=== PATIENT | male | born 1950 | race Caucasian/White ===

== ENCOUNTER 2021-03-14 14:12 | Outpatient (CLI) | payer MEDICARE, OTHER, SELFPAY ==
--- NOTE | 2021-03-14 14:46 | ECHO_ITS ---
Patient Info Name: Rolando Moser Age: 70 years : 1950 Gender: Male Ht: 70 in Wt: 320 lbs BSA: 2.75 m2 HR: 93 bpm BP: 160 / 81 mmHg Heart Rhythm: Sinus Rhythm Exam Date: 03/14/2021 2:56 PM Exam Location: [facility] Patient Status: Outpatient Admit Date: 03/14/2021 Staff Ordering Physician: Shad Montejo NP City Jailer: Barbara Goodman RDCS Attending Provider: Shad Montejo NP Referring Physician: Gustabo MEEK; Exam Type: CA echo doppler color flow Study Info Indications R60.0 - Localized edema Complete two-dimensional, color flow and Doppler transthoracic echocardiogram is performed. Summary 1. Complete two-dimensional, color flow and Doppler transthoracic echocardiogram is performed. 2. Left ventricular chamber dimension is normal. 3. Left ventricular systolic function is normal, estimated at 65-70%. 4. There is mildly increased left ventricular wall thickness. 5. The left ventricular diastolic function is grade I diastolic dysfunction. 6. E/e' 19 is elevated. 7. There is moderate aortic valve sclerosis. 8. The mitral valve has moderately calcified annulus. Left Ventricle E/e' 19 is elevated. Left ventricular chamber dimension is normal. Left ventricular systolic function is normal, estimated at 65-70%. There is mildly increased left ventricular wall thickness. The left ventricular diastolic function is grade I diastolic dysfunction. Right Ventricle Right ventricular systolic function is normal and with normal TAPSE 2.5 cm. Right ventricular chamber dimension is normal. Left Atria Left atrial chamber dimension is normal. Right Atria Right atrial chamber dimension is normal. Aortic Valve The aortic valve is trileaflet. There is moderate aortic valve sclerosis. There is no aortic valve stenosis. There is no aortic valve regurgitation. Pulmonic Valve There is no pulmonic regurgitation. Mitral Valve The mitral valve has moderately calcified annulus. There is no mitral valve stenosis. There is no mitral valve regurgitation. Tricuspid Valve There is no tricuspid valve regurgitation. Pericardium/Pleural There is no pericardial effusion. Inferior Vena Cava Normal inferior vena cava with >50% collapse upon inspiration consistent with normal right atrial pressure, 5 mmHg. Aorta The aortic root size at the sinus of Valsalva is normal. Left Ventricular Outflow Tract Name Value Normal LVOT 2D LVOT Diameter 2.0 cm LVOT Doppler LVOT Peak Gradient 5 mmHg LVOT Mean Gradient 3 mmHg LVOT VTI 24 cm LVOT VTI/AV VTI Ratio 0.8 LVOT Stroke Volume 73 ml LVOT CO 6.8 l/min LVOT CI 2.5 l/min/m2 Pulmonic Valve Name Value Normal RVOT Doppler
== END 2021-03-14 14:13 | disposition home or self-care (01) ==
LOC: ANHCARD 14:14
PROVIDERS: PCP Family Medicine; Visit Provider Nurse Practitioner Family
DX: R60.0 Localized edema (principal); I70.0 Atherosclerosis of aorta
CPT/HCPCS: 93306

== ENCOUNTER 2021-10-02 13:03 | Inpatient (IN) | payer MEDICARE, OTHER, SELFPAY ==
[2021-10-02] VITALS (13 sets, daily range): BP systolic 103–129; BP diastolic 46–91; PULSE 79–92; RESP 12–33; TEMP 35.9–36.8; O2SAT 90–99; BMI 33.2
--- NOTE | ~2021-10-02 | CT_ITS ---
EXAMINATION: CT brain wo con DATE: 10/03/2021 09:36 INDICATION: Multiple falls. Weakness. TECHNIQUE: Computed tomography (CT) of the head was performed without intravenous contrast. Sagittal and coronal reconstructions were performed. The mA was adjusted according to patient size. Iterative reconstruction technique was employed. The dose-length product was 681.00 mGy-cm. COMPARISON: None FINDINGS: No acute calvarial fracture. Old craniotomy versus fracture near the midline of the right frontal bon e extending into the anterior wall of the right frontal sinus. Old right frontal chance hole. Likely se quela of chronic infarcts with large region of encephalomalacia involving large portions of the left parietal, temporal and occipital lobes. [id number]-hl-[id number] region of encephalomalacia in the right fro ntal lobe and small region in the left frontal lobe. No acute intracranial hemorrhage, acute infarcti on or abnormal extra axial fluid collection. Ventricles are normal and symmetric. No mass/mass effect . Posterior layering fluid and prominent mucosal thickening in the left maxillary sinus which demonst rates thickened sclerotic guallpa consistent with acute on chronic sinusitis. Additional mild mucosal t hickening the bilateral ethmoid sinuses. The orbits and mastoid air cells are normal. Intracranial ca lcified cerebral atherosclerosis is noted. IMPRESSION: 1. No acute fracture or acute intracranial process. 2. Large region of encephalomalacia involving portions of the right parietal, temporal and occipital lobes with smaller regions in the lateral frontal lobes likely related to old infarcts. 3. Acute on chronic left maxillary sinusitis. Reviewed, dictated and finalized at location B. IMPRESSION: 1. No acute fracture or acute intracranial process. 2. Large region of encephalomalacia involving portions of the right parietal, t emporal and occipital lobes with smaller regions in the lateral frontal lobes l ikely related to old infarcts. 3. Acute on chronic left maxillary sinusitis.
--- NOTE | ~2021-10-02 | XR_ITS ---
EXAMINATION: XR chest 1V portable EXAM DATE: 10/02/2021 13:33 INDICATION: CHF, LE edema. TECHNIQUE: Portable AP frontal chest x-ray was obtained. Comparison is made to prior examination from 06/22/2018. FINDINGS: Interval development of some scattered lung opacities, left upper lung zone and bilateral l ower lung zones. Could be added pneumonia or edema. Please clinically correlate. Mild cardiomegaly is unchanged. Lungs are hyperinflated also unchanged. No pneumothorax. There are mild bony degenerative changes. IMPRESSION: Development of patchy basilar predominant multifocal airspace disease, pneumonia or edema . Consider one-month follow-up to exclude any underlying cancer. Reviewed, dictated and finalized at location A. IMPRESSION: Development of patchy basilar predominant multifocal airspace disea se, pneumonia or edema. Consider one-month follow-up to exclude any underlying cancer.
--- NOTE | ~2021-10-02 | US_ITS ---
EXAMINATION: US renal BI DATE: 10/03/2021 10:41 INDICATION: Acute kidney injury. TECHNIQUE: Multiple ultrasound grayscale images of the kidneys were obtained. COMPARISON: CT lumbar spine 10/03/2021, CT abdomen and pelvis 06/22/2018. FINDINGS: The right kidney measures 10.5 x 5.6 x 5.9 cm. The left kidney measures 10.5 x 4.5 x 5.4 cm. The kidn eys demonstrate normal parenchymal echogenicity. There is cortical thinning of the kidneys. There are cysts in the kidneys measuring up to 1.8 cm on the right. There is no hydronephrosis. The bladder is normal. IMPRESSION: 1. Cortical thinning of the kidneys. No hydronephrosis. Reviewed, dictated and finalized at location A.
--- NOTE | ~2021-10-02 | US_ITS ---
EXAMINATION:US venous doppler LE BI INDICATION:Leg edema TECHNIQUE: Multiple grayscale, color flow and Doppler images of the right and left lower extremity de ep venous systems were obtained and reviewed. COMPARISON:No prior studies for comparison. FINDINGS: The common femoral, superficial femoral and popliteal veins demonstrate normal respiratory variation, augmentation and compressibility. Color flow is also seen within the posterior tibial, pe roneal, greater saphenous and profunda veins. IMPRESSION: 1: No lower extremity deep venous thrombosis. Reviewed, dictated and finalized at location A.
--- NOTE | ~2021-10-02 | CT_ITS ---
EXAMINATION: CT lumbar spine wo [facility] EXAM DATE: 10/03/2021 09:36 INDICATION: acute/chronic back pain, weakness, falls . TECHNIQUE: Spiral CT of the lumbar spine was performed without contrast. Axial, coronal and sagittal images lumbar spine were reviewed. The dose-length product (DLP) for this examination was 1267.28 m Gy-cm. The exposure was tailored according to patient size (auto mA exposure control), and iterativ e reconstruction (ASIR) was used as additional dose reduction technique. There is no prior study for comparison. FINDINGS: There are no acute fractures identified. Intact sacroiliac joints. There is moderate L5-S1 disc disease, otherwise mild to moderate lumbar disc disease. Mild diffuse loss of thoracolumbar vert ebral body heights. The vertebral bodies are aligned in the AP dimension. Paraspinal evaluation demonstrates a 3.6 cm right adrenal gland adenoma and an indeterminate partiall y exophytic mass at the mid pole of the right kidney measuring 12 mm. There is additional smaller rig ht renal lesion most likely a hemorrhagic cyst. Extensive abdominal aortic arteriosclerosis. Level by level evaluation: T12-L1: Disc does not extend beyond the endplate margin. Facet arthropathy: None. Neural foraminal stenosis: No stenosis. Central canal stenosis: No stenosis. L1-L2: There is a mild diffuse disc bulge. Facet arthropathy: Mild. Neural foraminal stenosis: Mild left. Central canal stenosis: Mild. L2-L3: There is a mild to moderate diffuse disc bulge. Facet arthropathy: Moderate. Neural foraminal stenosis: Mild to moderate bilateral. Central canal stenosis: Mild to moderate. L3-L4: There is a mild to moderate diffuse disc bulge. Facet arthropathy: Mild to moderate. Neural foraminal stenosis: Mild bilateral. Central canal stenosis: Mild to moderate. L4-L5: There is a moderate diffuse disc bulge. Facet arthropathy: Severe. Neural foraminal stenosis: Moderate right, mild to moderate left. Central canal stenosis: Moderate to severe. L5-S1: There is a mild to moderate diffuse disc bulge. Facet arthropathy: Moderate. Neural foraminal stenosis: Moderate bilateral. Central canal stenosis: Mild. IMPRESSION: 1. Moderate to severe L4-5 Central canal stenosis. 2. Indeterminate right renal mass, renal cell cancer versus hemorrhagic cyst. Pre and postcontrast M RI abdomen or CT recommended. 3. Adrenal adenoma. 4. No acute findings. Reviewed, dictated and finalized at location A. IMPRESSION: 1. Moderate to severe L4-5 Central canal stenosis. 2. Indeterminate right renal mass, renal cell cancer versus hemorrhagic cyst. Pre and postcontrast MRI abdomen or CT recommended. 3. Adrenal adenoma. 4. No acute findings.
--- NOTE | 2021-10-02 13:17 | ECG_ITS ---
Measurements Intervals [place] Rate: 79 P: 5 FL: 168 QRS: -19 QRSD: 152 T: 34 QT: 423 QTc: 487 Interpretive Statements SINUS RHYTHM RIGHT BUNDLE BRANCH BLOCK [120+ ms QRS DURATION, UPRIGHT V1, 40+ ms S IN I/aVL/V4/V5/V6] NO PREVIOUS ECG AVAILABLE FOR COMPARISON Electronically Signed On 10-02-2021 14:27:28 CDT by Hoda Sullivan M.D.
[2021-10-02 13:49] LABS: Basophils Absolute Auto 0.1 K/mm3 (0.0-0.1); Basophils Percent Auto 0.6 % (0.2-1.2); Eosinophils Absolute Auto 0.2 K/mm3 (0-0.3); Eosinophils Percent Auto 1.7 % (0-4.4); Hematocrit 43.8 % (42.0-52.0); Hemoglobin 14.8 g/dL (14.0-18.0); Immature Granulocyte Absolute 0.13 K/mm3 (0.00-0.031); Immature Granulocyte Percent A 1.1 % (0-0.5); Lymphocytes Absolute Auto 1.81 K/mm3 (0.9-3.2); Lymphocytes Percent Auto 14.6 % (18.3-44.2); Mean Corpuscular HGB Conc 33.8 g/dl (32-36); Mean Corpuscular Hemoglobin 30.9 pg (26-34); Mean Corpuscular Volume 91.4 fl (80-100); Mean Platelet Volume 8.9 fl (7.4-10.4); Monocytes Absolute Auto 0.7 K/mm3 (0.1-0.6); Monocytes Percent Auto 5.7 % (2.6-8.5); Neutrophils Absolute Auto 9.4 K/mm3 (1.3-6.7); Neutrophils Percent Auto 76.3 % (45.5-73.1); Platelet Count Result 264 k/mm3 (150-375); Red Blood Count 4.79 M/mm3 (4.6-6.20); Red Cell Distribution Width 15.4 % (11.5-14.5); White Blood Count 12.4 K/mm3 (4.5-10.0)
[2021-10-02 13:59] LABS: INR 1.1; Prothrombin Time 13.6 Seconds (11.1-14.7)
[2021-10-02 14:08] LABS: Alanine Aminotransferase 37 U/L (4-50); Albumin Level 4.2 g/dL (3.5-5.1); Alkaline Phosphatase 102 U/L (38-126); Anion Gap 7 mmol/L (8-16); Aspartate Amino Transferase 31 U/L (17-59); Bilirubin,Total 0.9 mg/dL (0.2-1.3); Blood Urea Nitrogen 22 mg/dL (9-20); Calcium 9.3 mg/dL (8.4-10.2); Carbon Dioxide 34 mmol/L (22-30); Chloride 97 mmol/L (98-107); Estimated CRCL calculation 48 ml/min; Estimated Glomerular Filt Rate 46; Glucose 121 mg/dL (65-110); Potassium 4.2 mmol/L (3.4-5.0); Sodium 138 mmol/L (137-145)
[2021-10-02 14:20] LABS: NT Pro B Type Natriuretic Pept 525 pg/mL (5-100); Troponin I < 0.012 ng/mL (0.000-0.034)
--- NOTE | 2021-10-02 15:00 | ED.WEAKNESS ---
HPI - Weakness General Chief complaint: Weakness Stated complaint: weakness Time Seen by Provider: 10/02/21 13:16 Source: patient and family Mode of arrival: EMS Limitations: no limitations History of Present Illness HPI Narrative: 71-year-old with a history of hypertension, hyperlipidemia, CKD here with complaints of marked weakness for past few months however this morning he was unable to walk. He states that his knees buckled up he states he has no strength in his lower extremities.. states that he had an appointment this afternoon with Dr. Castro was unable to make it. He denies any chest pain, shortness of breath. No history of fever or chills. He denies any shortness of breath or cough. No history of nausea or vomiting. MD Complaint: generalized weakness Onset (ago): month(s) Duration: constant Location: generalized Migration: none Severity: moderate Relieving factors: none Exacerbating factors: none Context: new medication Associated symptoms: denies other symptoms Related Data Home Medications Medication Instructions Recorded Confirmed diltiazem HCl [DILT-XR] PO 10/02/21 rosuvastatin mg 10/02/21 Allergies Allergy/AdvReac Type Severity Reaction Status Date / Time No Known Allergies Allergy Verified 10/02/21 13:20 Review of Systems Review of Systems: All systems reviewed & are unremarkable except as noted in HPI and below Constitutional: Constitutional: Reports no additional constitutional complaints Eyes: Eyes: Reports no additional eye complaints ENT: Reports system reviewed and no additional complaints, except as documented Cardiovascular: Cardiovascular: Reports no additional cardiovascular complaints Respiratory: Respiratory: Reports no additional respiratory complaints Gastrointestinal: Gastrointestinal: Reports no additional gastrointestinal complaints Musculoskeletal: Musculoskeletal: Reports no additional musculoskeletal complaints Neurologic: Reports system reviewed and no additional complaints, except as documented [facility] Past Medical History Medical History BMI 32.0-32.9,adult BMI 33.0-33.9,adult BMI 35.0-35.9,adult BMI 36.0-36.9,adult Tobacco abuse Family History Family History Mother Hypertension Family history of diabetes mellitus in first degree relative Depression Family history of cataracts Family history of arthritis Family history of hearing loss Father Family history of malignant neoplasm Other Cerebrovascular accident Social History Social History Smoking packs per day: 0.50 Smoking cigarettes per day: 10.0 Years smoked: 30 Smoking pack-years: 15.00 Tobacco type: cigarettes Second hand tobacco smoke exposure: No Alcohol intake: former Substance use: current Substance use type: marijuana 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 HEAD: Normocephalic, atraumatic. EYES: PERRLA and EOMI. NECK: Supple. CHEST: Clear to auscultation. No respiratory distress. HEART: Regular rate and rhythm. No murmur heard. Normal peripheral pulses. ABDOMEN: Soft, nontender, nondistended, normal active bowel sounds. EXTREMITIES: Normal range of motion. 3+ edema bilaterally, stasis dermatitis in both lower extremities. No evidence of cellulitis SKIN: Warm, dry, no rash. NEURO: No focal deficits. Alert and oriented x3. PSYCH: Normal mood and affect. Course Course Emergency Course: Patient comfortably sitting on the bed in no discomfort. Informed him and his about the lab work, x-ray findings. Patient requested admit him as she is unable to take care of him because of his lower extremity weakness.
[2021-10-02 16:30] LABS: SARS-CoV-2 RNA PCR Negative
[2021-10-02 16:37] LABS: Procalcitonin 0.1 ng/mL
--- NOTE | 2021-10-02 17:00 | PM.IMHP ---
H&P: HPI History of Present Illness Date/Time: 10/02/21 17:00 Chief Complaint: Weakness. Narrative: This is a 71-year-old male hypertension, hyperlipidemia, diastolic congestive heart failure, anxiety, and chronic back pain who presented to the emergency department via EMS from home for evaluation of weakness. He has gotten progressively more weak and unsteady on his feet over the last several months, some of which he contributes to his chronic low back pain. Unfortunately it seems that his weakness has gotten worse in the last several weeks and he has sustained a couple of falls ?because my legs give out.? Luckily he has not sustained any injuries in the falls and he denies head trauma and loss of consciousness. He mentions that he had a sinus infection about 3 weeks ago and he is feeling somewhat better however he continues to have a mild cough that is occasionally productive of green phlegm. On arrival to triage he needed assistance when transferring from the chair to the wheelchair and standing and pivoting to the bed. His vital signs have been stable. Pertinent labs include a white blood cell count of 12.4, elevated BUN and creatinine from baseline, and a proBNP of 525. EKG showed a normal sinus rhythm with right bundle-branch block and he had a negative troponin. Chest x-ray showed the development of patchy basilar predominant multifocal airspace disease consistent with pneumonia or edema. He is being admitted in this setting for further evaluation and care. At the time my evaluation he is resting comfortably, is watching TV, and he has no specific complaints. He denies fever, chills, sweats, incontinence, urinary retention, saddle anesthesia, paresthesias, vertigo, facial droop, dysarthria, dysphagia, and focal weakness. Appetite has been okay and he denies nausea, vomiting, and diarrhea. No dysuria. No chest pain, pleuritic pain, palpitations, orthopnea, or paroxysmal nocturnal dyspnea. Review of Systems Review of Systems: Twelve systems were reviewed and are negative except for as per HPI. [facility] Past Medical History Medical History (Updated 10/02/21 @ 23:55 by Katie Ruano PA-C) Anxiety Diastolic dysfunction Diverticulitis Essential hypertension Mixed hyperlipidemia Post-traumatic stress disorder, unspecified Restless leg syndrome Tobacco abuse Surgical History Surgical History (Updated 10/02/21 @ 23:52 by Katie Ruano PA-C) History of cystoscopy History of exploratory laparotomy With adhesiolysis and splenic flexure takedown. Also previous enterotomy with removal of foreign body (presumed clove of garlic). History of open sigmoidectomy For diverticulitis. History of tonsillectomy Family History Family History Mother Hypertension Family history of diabetes mellitus in first degree relative Depression Family history of cataracts Family history of arthritis Family history of hearing loss Father Family history of malignant neoplasm Other Cerebrovascular accident Social History Social History (Updated 10/02/21 @ 23:52 by Katie Ruano PA-C) Social History: Surrogate decision maker: Barbara Moser, . Code status: Full code. 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
--- NOTE | 2021-10-02 17:27 | ADMGEN ---
This patient, Rolando Moser, was admitted to [facility] Surg Room 313-01. Patient/family oriented to hospital policies and general routines including ID bracelet, bed and alarms, visiting hours, pain management, procedures, bathroom and other care routines, personal items, smoking policy, room service/diet, and visiting hours. Information on how to activate the Rapid Response Team has been discussed. Patient/Family are encouraged to report perceived risks to care and to ask questions if they do not understand what they are told or what they should do.
[2021-10-02] MEDS: SODIUM CHLORIDE 0.9% IV 1,000 ML 75 ML IV CONT (17:35)
[2021-10-03] VITALS (12 sets, daily range): BP systolic 113–147; BP diastolic 40–96; PULSE 78–104; RESP 17–24; TEMP 36.1–36.9; O2SAT 93–100
[2021-10-03] MEDS: GABAPENTIN 300 MG CAPSULE PO ×2 (01:40→20:52)
[2021-10-03 06:10] LABS: Basophils Absolute Auto 0.1 K/mm3 (0.0-0.1); Basophils Percent Auto 0.4 % (0.2-1.2); Eosinophils Absolute Auto 0.2 K/mm3 (0-0.3); Eosinophils Percent Auto 1.5 % (0-4.4); Hematocrit 40.8 % (42.0-52.0); Hemoglobin 13.3 g/dL (14.0-18.0); Immature Granulocyte Percent A 0.8 % (0-0.5); Lymphocytes Absolute Auto 1.59 K/mm3 (0.9-3.2); Lymphocytes Percent Auto 12.2 % (18.3-44.2); Mean Corpuscular HGB Conc 32.6 g/dl (32-36); Mean Corpuscular Hemoglobin 30.7 pg (26-34); Mean Corpuscular Volume 94.2 fl (80-100); Mean Platelet Volume 9.1 fl (7.4-10.4); Monocytes Absolute Auto 0.8 K/mm3 (0.1-0.6); Neutrophils Absolute Auto 10.3 K/mm3 (1.3-6.7); Neutrophils Percent Auto 79.1 % (45.5-73.1); Platelet Count Result 223 k/mm3 (150-375); Red Blood Count 4.33 M/mm3 (4.6-6.20); Red Cell Distribution Width 15.5 % (11.5-14.5)
[2021-10-03 06:23] LABS: Anion Gap 5 mmol/L (8-16); Blood Urea Nitrogen 18 mg/dL (9-20); Calcium 8.7 mg/dL (8.4-10.2); Carbon Dioxide 32 mmol/L (22-30); Chloride 101 mmol/L (98-107); Creatine Kinase 65 U/L (55-170); Estimated CRCL calculation 66 ml/min; Estimated Glomerular Filt Rate > 60; Glucose 115 mg/dL (65-110); Potassium 3.9 mmol/L (3.4-5.0); Sodium 138 mmol/L (137-145)
[2021-10-03 07:08] LABS: Thyroid Stimulating Hormone Reflex 0.599 uIU/mL (0.465-4.68)
[2021-10-03] MEDS: GABAPENTIN 100 MG CAPSULE BY MOUTH ×2 (09:08→11:49)
[2021-10-03] MEDS: ASPIRIN 81 MG CHEWABLE TABLET 162 MG PO (09:08)
[2021-10-03] MEDS: METOPROLOL SUCCINATE EXT REL 50 MG TABCR 150 MG PO (09:09)
--- NOTE | 2021-10-03 13:41 | PC.NURSE ---
On 10/03/21, the student, [Magdiel Corbin ], provided care and completed [facility] documentation on this patient. I have reviewed the student's documentation and agree with the findings.
[2021-10-03] MEDS: SODIUM CHLORIDE 0.9% IV 1,000 ML 75 ML IV CONT (14:00)
--- NOTE | 2021-10-03 15:10 | PM.IMPN ---
Progress Note: A&P Assessment and Plan (1) Generalized weakness: Code(s): R53.1 - Weakness Status: Acute Assessment and Plan: -progressive weakness to point where patient was having difficulty with ADLs and frequent falls -suspect secondary to recent infection, possible pneumonia, acute kidney injury, or more likely a combination of all of the above -also with chronic back pain -pain control/fall precautions -PT/OT (2) Multiple falls: Code(s): R29.6 - Repeated falls Status: Acute Assessment and Plan: -as above (3) Chronic back pain: Code(s): M54.9 - Dorsalgia, unspecified; G89.29 - Other chronic pain Status: Acute Assessment and Plan: -chronic -CT L spine with moderate to severe L4-5 Central canal stenosis -neurovascularly intact, no signs of cauda equina (4) Abnormal chest x-ray: Code(s): R93.89 - Abnormal findings on diagnostic imaging of other specified body structures Status: Acute Assessment and Plan: -started azithromycin and ceftriaxone in the ED for possible pneumonia and we will continue with this given his recent sinus issues and cough, pending sputum culture and procalcitonin. -CT scan should be repeated in 1 month for follow-up and to rule out possible underlying malignancy. -SARS-CoV-2 by PCR was negative. -Chest x-ray could also be reflective of pulmonary edema though that seems less likely as he in fact appears a bit dehydrated on exam. While he has some lower extremity edema I think that is likely due to lack of mobility and dependent edema. Venous Doppler ultrasounds of the lower legs negative for DVT. (5) Acute kidney injury: Code(s): N17.9 - Acute kidney failure, unspecified Status: Acute Assessment and Plan: -cautiously hydrated overnight -Renal ultrasound w/ cortical thinning otherwise unremarkable. -We will avoid nephrotoxic agents and monitor strict I/O. (6) Diastolic dysfunction: Code(s): I51.89 - Other ill-defined heart diseases Status: Acute (7) Essential hypertension: Code(s): I10 - Essential (primary) hypertension Status: Acute Assessment and Plan: -Blood pressures were reviewed and they are stable on the lower end of normal. -His antihypertensives will be reviewed and resumed as appropriate. (8) Tobacco abuse: Code(s): Z72.0 - Tobacco use Status: Acute Assessment and Plan: -Smoking cessation is encouraged. -He declines the need for nicotine patch at this time. (9) Renal cyst: Code(s): N28.1 - Cyst of kidney, acquired Status: Acute Assessment and Plan: -noted today on CT L spine as malignancy vs cyst -discussed with patient who states it is definitely a cyst and he had outpatient imaging of this 6 months ago Subjective Date/time seen: 10/03/21 15:10 Interval history: 71-year-old male w/ hx of hypertension, hyperlipidemia, diastolic congestive heart failure, anxiety, and chronic back pain, admitted for weakness and pneumonia. Pt is doing better today, said he did okay with therapy. Still coughing and sob, currently on 1L NC and does not normally wear home oxygen. Still getting over a sinus infection w/ productive cough. No cp. Still some LE edema. Review of Systems Review of Systems: All systems reviewed & are unremarkable except as noted in HPI and below Exam Narrative: General: Well-developed elderly male sitting up in bed in no distress. He is nontoxic in appearance. Weight: 105.1 kg. BMI: 33.2. HEENT: Normocephalic, atraumatic. He is quite hard of hearing. PERRL. Sclerae anicteric. Neck: Supple. Respiratory: Respirations are nonlabored and he is speaking in full sentences. Lung sounds are diminished at the bases with faint crackles and expiratory wheezing. Cardiovascular: Regular rate and rhythm with S1-S2. Gastrointestinal: Abdomen is soft, nontender,
[2021-10-03] MEDS: ROSUVASTATIN 10 MG TABLET 20 MG PO (16:03)
[2021-10-03] MEDS: ALPRAZolam (*CRX) 0.5 MG TABLET PO (20:56)
[2021-10-04] VITALS (16 sets, daily range): BP systolic 100–139; BP diastolic 44–87; PULSE 67–94; RESP 16–22; TEMP 36.2–36.7; O2SAT 90–99
[2021-10-04 05:52] LABS: Basophils Percent Auto 0.4 % (0.2-1.2); Eosinophils Absolute Auto 0.2 K/mm3 (0-0.3); Eosinophils Percent Auto 1.9 % (0-4.4); Hematocrit 41.8 % (42.0-52.0); Hemoglobin 13.6 g/dL (14.0-18.0); Immature Granulocyte Absolute 0.06 K/mm3 (0.00-0.031); Immature Granulocyte Percent A 0.6 % (0-0.5); Lymphocytes Absolute Auto 1.19 K/mm3 (0.9-3.2); Lymphocytes Percent Auto 11.6 % (18.3-44.2); Mean Corpuscular HGB Conc 32.5 g/dl (32-36); Mean Corpuscular Hemoglobin 30.4 pg (26-34); Mean Corpuscular Volume 93.3 fl (80-100); Mean Platelet Volume 9.1 fl (7.4-10.4); Monocytes Absolute Auto 0.7 K/mm3 (0.1-0.6); Monocytes Percent Auto 6.8 % (2.6-8.5); Neutrophils Absolute Auto 8.1 K/mm3 (1.3-6.7); Neutrophils Percent Auto 78.7 % (45.5-73.1); Platelet Count Result 211 k/mm3 (150-375); Red Blood Count 4.48 M/mm3 (4.6-6.20); Red Cell Distribution Width 15.1 % (11.5-14.5); White Blood Count 10.3 K/mm3 (4.5-10.0)
[2021-10-04 06:03] LABS: Anion Gap 5 mmol/L (8-16); Blood Urea Nitrogen 16 mg/dL (9-20); Calcium 9.1 mg/dL (8.4-10.2); Carbon Dioxide 31 mmol/L (22-30); Chloride 102 mmol/L (98-107); Estimated CRCL calculation 80 ml/min; Estimated Glomerular Filt Rate > 60; Glucose 110 mg/dL (65-110); Potassium 3.9 mmol/L (3.4-5.0); Sodium 138 mmol/L (137-145)
[2021-10-04] MEDS: METOPROLOL SUCCINATE EXT REL 50 MG TABCR 150 MG PO (08:05)
[2021-10-04] MEDS: ASPIRIN 81 MG CHEWABLE TABLET 162 MG PO (08:05)
[2021-10-04] MEDS: GABAPENTIN 100 MG CAPSULE BY MOUTH ×2 (08:05→11:48)
--- NOTE | 2021-10-04 12:17 | PM.IMPN ---
Progress Note: A&P Assessment and Plan (1) Generalized weakness: Code(s): R53.1 - Weakness Status: Acute Assessment and Plan: -progressive weakness to point where patient was having difficulty with ADLs and frequent falls -suspect secondary to recent sinus infection, pneumonia, acute kidney injury, or more likely a combination of all of the above -also with chronic back pain -pain control/fall precautions -PT/OT -will go home with home health on discharge (2) Multiple falls: Code(s): R29.6 - Repeated falls Status: Acute Assessment and Plan: -as above (3) Chronic back pain: Code(s): M54.9 - Dorsalgia, unspecified; G89.29 - Other chronic pain Status: Acute Assessment and Plan: -chronic -CT L spine with moderate to severe L4-5 Central canal stenosis -neurovascularly intact, no signs of cauda equina (4) Abnormal chest x-ray: Code(s): R93.89 - Abnormal findings on diagnostic imaging of other specified body structures Status: Acute Assessment and Plan: -started azithromycin and ceftriaxone in the ED for possible pneumonia and we will continue with this given his recent sinus issues and cough -CT scan should be repeated in 1 month for follow-up and to rule out possible underlying malignancy. -SARS-CoV-2 by PCR was negative. -Chest x-ray could also be reflective of pulmonary edema though that seems less likely as he in fact appears a bit dehydrated on exam. While he has some lower extremity edema I think that is likely due to lack of mobility and dependent edema. Venous Doppler ultrasounds of the lower legs negative for DVT. (5) Acute kidney injury: Code(s): N17.9 - Acute kidney failure, unspecified Status: Acute Assessment and Plan: -cautiously hydrated overnight -Renal ultrasound w/ cortical thinning otherwise unremarkable. -We will avoid nephrotoxic agents and monitor strict I/O. (6) Essential hypertension: Code(s): I10 - Essential (primary) hypertension Status: Acute Assessment and Plan: -Blood pressures were reviewed and they are stable on the lower end of normal. -His antihypertensives will be reviewed and resumed as appropriate. (7) Tobacco abuse: Code(s): Z72.0 - Tobacco use Status: Acute Assessment and Plan: -Smoking cessation is encouraged. -He declines the need for nicotine patch at this time. (8) Renal cyst: Code(s): N28.1 - Cyst of kidney, acquired Status: Acute Assessment and Plan: -noted today on CT L spine as malignancy vs cyst -discussed with patient who states it is definitely a cyst and he had outpatient imaging of this 6 months ago Subjective Date/time seen: 10/04/21 12:17 Interval history: 71-year-old male w/ hx of hypertension, hyperlipidemia, diastolic congestive heart failure, anxiety, and chronic back pain, admitted for weakness and pneumonia. Improving today. Came off of oxygen today. Still coughing but improving. No cp or sob. No N/V/D/abd pain. Initially did not want home health but now he and at bedside are requesting it. Review of Systems Review of Systems: All systems reviewed & are unremarkable except as noted in HPI and below Exam Narrative: General: Well-developed elderly male sitting up in his chair in no distress. He is nontoxic in appearance. Weight: 105.1 kg. BMI: 33.2. HEENT: Normocephalic, atraumatic. He is quite hard of hearing. PERRL. Sclerae anicteric. Neck: Supple. Respiratory: Respirations are nonlabored and he is speaking in full sentences. Lung sounds are diminished at the bases with scattered rhonchi Cardiovascular: Regular rate and rhythm with S1-S2. Gastrointestinal: Abdomen is soft, nontender, and nondistended with positive bowel sounds. Skin: Warm and dry. Chronic skin changes of the lower legs, left greater than right, consistent with stasi
[2021-10-04] MEDS: ROSUVASTATIN 10 MG TABLET 20 MG PO (18:24)
[2021-10-04] MEDS: GABAPENTIN 300 MG CAPSULE PO (20:05)
[2021-10-04] MEDS: ALPRAZolam (*CRX) 0.5 MG TABLET PO (22:55)
[2021-10-05] VITALS (16 sets, daily range): BP systolic 86–135; BP diastolic 41–67; PULSE 18–87; RESP 16–19; TEMP 36.3–36.9; O2SAT 93–98
[2021-10-05 06:06] LABS: Basophils Percent Auto 0.5 % (0.2-1.2); Eosinophils Absolute Auto 0.2 K/mm3 (0-0.3); Eosinophils Percent Auto 2.6 % (0-4.4); Hematocrit 41.2 % (42.0-52.0); Hemoglobin 13.5 g/dL (14.0-18.0); Immature Granulocyte Absolute 0.03 K/mm3 (0.00-0.031); Immature Granulocyte Percent A 0.4 % (0-0.5); Lymphocytes Absolute Auto 1.38 K/mm3 (0.9-3.2); Lymphocytes Percent Auto 16.3 % (18.3-44.2); Mean Corpuscular HGB Conc 32.8 g/dl (32-36); Mean Corpuscular Hemoglobin 30.8 pg (26-34); Mean Corpuscular Volume 93.8 fl (80-100); Mean Platelet Volume 9.2 fl (7.4-10.4); Monocytes Absolute Auto 0.7 K/mm3 (0.1-0.6); Neutrophils Absolute Auto 6.1 K/mm3 (1.3-6.7); Neutrophils Percent Auto 72.2 % (45.5-73.1); Platelet Count Result 181 k/mm3 (150-375); Red Blood Count 4.39 M/mm3 (4.6-6.20); Red Cell Distribution Width 15.1 % (11.5-14.5); White Blood Count 8.5 K/mm3 (4.5-10.0)
[2021-10-05 06:15] LABS: Anion Gap 7 mmol/L (8-16); Blood Urea Nitrogen 15 mg/dL (9-20); Calcium 9.4 mg/dL (8.4-10.2); Carbon Dioxide 29 mmol/L (22-30); Chloride 102 mmol/L (98-107); Estimated CRCL calculation 80 ml/min; Estimated Glomerular Filt Rate > 60; Glucose 102 mg/dL (65-110); Potassium 3.9 mmol/L (3.4-5.0); Sodium 138 mmol/L (137-145)
[2021-10-05] MEDS: METOPROLOL SUCCINATE EXT REL 50 MG TABCR 150 MG PO (08:45)
[2021-10-05] MEDS: GABAPENTIN 100 MG CAPSULE BY MOUTH ×2 (08:45→12:03)
[2021-10-05] MEDS: ASPIRIN 81 MG CHEWABLE TABLET 162 MG PO (08:45)
--- NOTE | 2021-10-05 11:04 | PM.IMPN ---
Progress Note: A&P Assessment and Plan (1) Generalized weakness: Code(s): R53.1 - Weakness Status: Acute Assessment and Plan: -progressive weakness to point where patient was having difficulty with ADLs and frequent falls -suspect secondary to recent sinus infection, pneumonia, acute kidney injury, or more likely a combination of all of the above -also with chronic back pain -pain control/fall precautions -PT/OT -home health vs rehab on discharge? (2) Multiple falls: Code(s): R29.6 - Repeated falls Status: Acute Assessment and Plan: -as above (3) Chronic back pain: Code(s): M54.9 - Dorsalgia, unspecified; G89.29 - Other chronic pain Status: Acute Assessment and Plan: -chronic -CT L spine with moderate to severe L4-5 Central canal stenosis -neurovascularly intact, no signs of cauda equina (4) Pneumonia: Qualifiers: Laterality: bilateral Lung location: unspecified part of lung Pneumonia type: due to unspecified organism Qualified Code(s): J18.9 - Pneumonia, unspecified organism Code(s): J18.9 - Pneumonia, unspecified organism Status: Acute Assessment and Plan: -started azithromycin and ceftriaxone in the ED for possible pneumonia and we will continue with this given his recent sinus issues and cough -CT scan should be repeated in 1 month for follow-up and to rule out possible underlying malignancy. -SARS-CoV-2 by PCR was negative. -Chest x-ray could also be reflective of pulmonary edema though that seems less likely as he in fact appears a bit dehydrated on exam. While he has some lower extremity edema I think that is likely due to lack of mobility and dependent edema. Venous Doppler ultrasounds of the lower legs negative for DVT. -clinically significantly improved thus will continue abx for a total of 7 days of treatment -overnight had desaturation and confusion, will do apnea link tonight to screen for sleep apnea (5) Acute kidney injury: Code(s): N17.9 - Acute kidney failure, unspecified Status: Acute Assessment and Plan: -cautiously hydrated overnight -Renal ultrasound w/ cortical thinning otherwise unremarkable. -We will avoid nephrotoxic agents and monitor strict I/O. (6) Essential hypertension: Code(s): I10 - Essential (primary) hypertension Status: Acute Assessment and Plan: -Blood pressures were reviewed and they are stable on the lower end of normal. -continue home meds (7) Tobacco abuse: Code(s): Z72.0 - Tobacco use Status: Acute Assessment and Plan: -Smoking cessation is encouraged. -He declines the need for nicotine patch at this time. (8) Renal cyst: Code(s): N28.1 - Cyst of kidney, acquired Status: Acute Assessment and Plan: -noted today on CT L spine as malignancy vs cyst -discussed with patient who states it is definitely a cyst and he had outpatient imaging of this 6 months ago Subjective Date/time seen: 10/05/21 11:04 Interval history: 71-year-old male w/ hx of hypertension, hyperlipidemia, diastolic congestive heart failure, anxiety, and chronic back pain, admitted for weakness and pneumonia. Feels better. No cough, cp, sob. Wants to go home. Got report from RN that overnight patient was up and walking around confused. At the time his oxygen level was 84% so he was placed back on 2L NC. He was weaned back to room air throughout the day today. Still unclear whether he is going home with HH or to rehab. Him and at bedside have changed their minds several times. Review of Systems Review of Systems: All systems reviewed & are unremarkable except as noted in HPI and below Exam Narrative: General: Well-developed elderly male sitting up in his chair in no distress. He is nontoxic in appearance. Weight: 105.1 kg. BMI: 33.2. HEENT: Normocephalic, atraumatic. He
[2021-10-05] MEDS: ROSUVASTATIN 10 MG TABLET 20 MG PO (17:04)
--- NOTE | 2021-10-05 17:29 | PCRCNOTE ---
PT on room air spo2 is 96% while resting. Pt drops to 93 with activity. PT does not require home oxygen with rest or with activity.
[2021-10-05] MEDS: GABAPENTIN 300 MG CAPSULE PO (21:03)
[2021-10-05] MEDS: NICOTINE (*PBKC) 14 MG PATCH 1 PATCH TRANSDERM (21:03)
[2021-10-05] MEDS: ALPRAZolam (*CRX) 0.5 MG TABLET PO (21:03)
[2021-10-06] VITALS (7 sets, daily range): BP systolic 121–125; BP diastolic 50–51; PULSE 61–88; RESP 18–20; TEMP 36.3–36.6; O2SAT 92–96
--- NOTE | 2021-10-06 05:18 | PCRCNOTE ---
the apnea study evaluation period was too short; RT checked on the patient at 0030 and the apnea study was in progress; the oximetry probe was found on the side of the bed at 0500; Also, the stevedoring supervisor stated that the patient was awake most of the night.
[2021-10-06 06:06] LABS: Basophils Percent Auto 0.2 % (0.2-1.2); Eosinophils Absolute Auto 0.2 K/mm3 (0-0.3); Eosinophils Percent Auto 2.4 % (0-4.4); Hematocrit 39.4 % (42.0-52.0); Immature Granulocyte Absolute 0.05 K/mm3 (0.00-0.031); Immature Granulocyte Percent A 0.6 % (0-0.5); Lymphocytes Percent Auto 15.7 % (18.3-44.2); Mean Corpuscular Hemoglobin 30.7 pg (26-34); Mean Corpuscular Volume 93.1 fl (80-100); Mean Platelet Volume 9.8 fl (7.4-10.4); Monocytes Absolute Auto 0.6 K/mm3 (0.1-0.6); Monocytes Percent Auto 7.2 % (2.6-8.5); Neutrophils Absolute Auto 6.1 K/mm3 (1.3-6.7); Neutrophils Percent Auto 73.9 % (45.5-73.1); Platelet Count Result 184 k/mm3 (150-375); Red Blood Count 4.23 M/mm3 (4.6-6.20); Red Cell Distribution Width 15.2 % (11.5-14.5); White Blood Count 8.3 K/mm3 (4.5-10.0)
[2021-10-06 06:15] LABS: Anion Gap 7 mmol/L (8-16); Blood Urea Nitrogen 17 mg/dL (9-20); Carbon Dioxide 29 mmol/L (22-30); Chloride 101 mmol/L (98-107); Estimated CRCL calculation 72 ml/min; Estimated Glomerular Filt Rate > 60; Glucose 98 mg/dL (65-110); Potassium 3.9 mmol/L (3.4-5.0); Sodium 137 mmol/L (137-145)
[2021-10-06] MEDS: GABAPENTIN 100 MG CAPSULE BY MOUTH (09:07)
[2021-10-06] MEDS: ASPIRIN 81 MG CHEWABLE TABLET 162 MG PO (09:07)
[2021-10-06] MEDS: METOPROLOL SUCCINATE EXT REL 50 MG TABCR 150 MG PO (09:07)
--- NOTE | 2021-10-06 10:22 | PM.DS ---
DS: Admitting Diagnosis Discharge Date 10/06/2021 Admitting Diagnosis 1. Generalized weakness 2. Multiple falls 3. Abnormal chest x-ray 4. Acute kidney injury 5. Diastolic dysfunction 6. Essential hypertension 7. Tobacco abuse DS: Discharge Diagnosis Discharge Diagnosis (1) Generalized weakness: Code(s): R53.1 - Weakness Status: Acute Assessment and Plan: -progressive weakness to point where patient was having difficulty with ADLs and frequent falls -suspect secondary to recent sinus infection, pneumonia, acute kidney injury, or more likely a combination of all of the above -also with chronic back pain -pain control/fall precautions -PT/OT have evaluated and has been deemed appropriate for HH vs. Rehab, will initiate home health. (2) Multiple falls: Code(s): R29.6 - Repeated falls Status: Acute Assessment and Plan: -as above -has been evaluated by Physical therapy and has ambulated independently 350 ft without difficulty. (3) Chronic back pain: Code(s): M54.9 - Dorsalgia, unspecified; G89.29 - Other chronic pain Status: Acute Assessment and Plan: -chronic -CT L spine with moderate to severe L4-5 Central canal stenosis -neurovascularly intact, no signs of cauda equina (4) Pneumonia: Qualifiers: Laterality: bilateral Lung location: unspecified part of lung Pneumonia type: due to unspecified organism Qualified Code(s): J18.9 - Pneumonia, unspecified organism Code(s): J18.9 - Pneumonia, unspecified organism Status: Acute Assessment and Plan: -started azithromycin and ceftriaxone in the ED for possible pneumonia and we will continue with this given his recent sinus issues and cough -CT scan should be repeated in 1 month for follow-up and to rule out possible underlying malignancy. -SARS-CoV-2 by PCR was negative. -Chest x-ray could also be reflective of pulmonary edema though that seems less likely as he in fact appears a bit dehydrated on exam. While he has some lower extremity edema I think that is likely due to lack of mobility and dependent edema. Venous Doppler ultrasounds of the lower legs negative for DVT. -clinically significantly improved thus will continue abx for a total of 7 days of treatment -overnight had desaturation and confusion, will do apnea link tonight to screen for sleep apnea - 10/06/21: Patient failed ApneaLink. Refer to pulmonology for outpatient sleep study. Patient is stable on room air and passed home oxygen evaluation without the need for home oxygen. For continued treatment of his pneumonia will prescribe an additional 4 days of azithromycin as he has received 3 currently and will prescribed 7 days of Ceftin b.i.d. as he was received 3 currently. This will bring to a total of 5 days for azithromycin therapy and 10 days of cephalosporins. In his discharge instructions he will be advised to follow-up with his primary care physician with suggested CT of the chest in 1 month for follow-up to rule out any underlying malignancy according to CT scan that was previously performed. (5) Acute kidney injury: Code(s): N17.9 - Acute kidney failure, unspecified Status: Resolved Assessment and Plan: -cautiously hydrated overnight -Renal ultrasound w/ cortical thinning otherwise unremarkable. -We will avoid nephrotoxic agents and monitor strict I/O. - 10/06/2021: Now resolved with creatinine of 1.0, BUN of 17 and a GFR greater than 60. (6) Essential hypertension: Code(s): I10 - Essential (primary) hypertension Status: Acute Assessment and Plan: -Blood pressures were reviewed and they are stable on the lower end of normal. -continue home meds - 10/06/2021: Continue home medications. (7) Tobacco abuse: Code(s): Z72.0 - Tobacco use Status: Acute Assessment and Plan: -Smoking cessation is encouraged. -He declines the need for ni
--- NOTE | 2021-10-08 07:32 | PC.NURSE ---
Blood cx are negative
== END 2021-10-06 11:35 | disposition home health service (06) | DRG 194 ==
LOC: ANHED 15:15 → ANH3MEDSUR 16:29
PROVIDERS: Physician Assistant; Admitting Provider Internal Medicine; Emergency Provider Family Medicine; PCP Family Medicine; Visit Provider Nurse Practitioner Adult Health
DX: J18.9 Pneumonia, unspecified organism (principal); N17.9 Acute kidney failure, unspecified; I50.32 Chronic diastolic (congestive) heart failure; R53.1 Weakness; I11.0 Hypertensive heart disease with heart failure; Z20.822 Contact with and (suspected) exposure to COVID-19; R93.89 Abnormal findings on diagnostic imaging of other specified body structures; N28.1 Cyst of kidney, acquired; F17.210 Nicotine dependence, cigarettes, uncomplicated; E78.2 Mixed hyperlipidemia; F41.9 Anxiety disorder, unspecified; G89.29 Other chronic pain; M54.50 Low back pain, unspecified; M48.061 Spinal stenosis, lumbar region without neurogenic claudication; F43.10 Post-traumatic stress disorder, unspecified; G25.81 Restless legs syndrome; R29.6 Repeated falls; Z79.82 Long term (current) use of aspirin; Z79.899 Other long term (current) drug therapy
CPT/HCPCS: 36415; 70450; 71045; 72131; 76775; 80048; 80053; 82550; 83735; 83880; 84145; 84443; 84484; 85025; 85610; 87040; 93005; 93970; 94618; 94762; 96365; 96367; 97110; 97116; 97161; 97165; 97530; 97535; 99285; A9270; C9803; G0378; J0456; J0696; J7030; U0003; U0005

== ENCOUNTER 2021-12-19 12:55 | Outpatient (CLI) | payer MEDICARE, OTHER, SELFPAY ==
[2021-12-12 15:09] LABS: Estimated Glomerular Filt Rate > 60
--- NOTE | ~2021-12-19 | CT_ITS ---
EXAMINATION: CT abdomen wo/w con DATE: 12/19/2021 13:57 INDICATION: Cystic renal lesion TECHNIQUE: Computed tomography (CT) of the abdomen and pelvis was performed without and with 100 mL O mnipaque-300 intravenous contrast. Automated exposure control and iterative reconstruction technique were employed. The dose-length product was 725.25 mGy-cm. COMPARISON: Ultrasound dated 10/03/2021 FINDINGS: Respiratory motion and mild atelectasis at the lung bases. Heart size is normal. Atherosclerotic loly nary artery calcific location and mitral annular calcific location. No pericardial or pleural effusio n. A couple subcentimeter low-attenuation likely hepatic cysts in the left hepatic lobe. Pancreas and left adrenal gland are normal. 3.3 x 2.8 cm low-attenuation right adrenal adenoma. Multiple splenic calcifications consistent with old granulomatous disease. There are multiple bilateral nonenhancing r enal cysts, several including the largest 2 cm cyst at the lower pole of the right kidney which are s imple with fluid attenuation and several higher attenuation proteinaceous/hemorrhagic cysts. There is however a 1.2 cm lesion at the posterolateral lower pole of the right kidney which appears enhancing on all 3 planes, for reference the lesion measures 56 on the postcontrast axial images and 26 on the precontrast axial images which is concerning for renal cell carcinoma. Normal appendix. Diverticulum at the cecum without adjacent inflammatory change to suggest diverticulitis. The visualized bowels a re unremarkable. There is calcified atherosclerosis of the aorta and many of the other arteries. No p athologically enlarged abdominal lymphadenopathy. Tiny fat-containing umbilical hernia. There are felix dging osteophytes at multiple levels in the spine, consistent with diffuse idiopathic skeletal hypero stosis (DISH). IMPRESSION: 1. 1.2 cm enhancing lesion at the lower pole of the right kidney concerning for renal cell carcinoma. Reviewed, dictated and finalized at location B.
--- NOTE | ~2021-12-19 | CT_ITS ---
EXAMINATION: CT diagnostic chest w con DATE: 12/19/2021 13:57 INDICATION: Pneumonia, tobacco use TECHNIQUE: Transaxial computed tomographic images of the chest were obtained after the administration of 100 cc of Omnipaque 300 intravenous contrast. The dose-length product (DLP) was 470.59 mGy-cm. It erative reconstruction was used. COMPARISON: None FINDINGS: There is a 5 mm nodule in the right middle lobe on image 77. There is mild emphysema. Mild dependent atelectasis is noted. No pleural effusion or pneumothorax. No pathologically enlarged thora cic lymph nodes are identified. The heart size is normal. There is calcified coronary artery atherosc lerosis. There is a 3.8 cm adenoma of the right adrenal gland. A 9 mm hemorrhagic cyst is noted in th e upper pole of the left kidney. There are bridging osteophytes at multiple levels in the spine, con sistent with diffuse idiopathic skeletal hyperostosis (DISH). IMPRESSION: 1. Mild atelectasis. 2. 5 mm nodule of the right middle lobe. Consider follow-up CT in 12 months. Reviewed, dictated and finalized at location F.
== END 2021-12-19 12:56 | disposition home or self-care (01) ==
PROVIDERS: PCP Family Medicine; Visit Provider Physician Assistant Medical
DX: N28.1 Cyst of kidney, acquired (principal); N17.9 Acute kidney failure, unspecified; J18.9 Pneumonia, unspecified organism; R93.89 Abnormal findings on diagnostic imaging of other specified body structures; Z72.0 Tobacco use; J98.11 Atelectasis; R91.1 Solitary pulmonary nodule
CPT/HCPCS: 71260; 74170; Q9967

== ENCOUNTER 2022-09-10 13:57 | Outpatient (CLI) | payer MEDICARE, SELFPAY ==
--- NOTE | ~2022-09-10 | CT_ITS ---
EXAMINATION: CT abdomen wo/w con DATE: 09/10/2022 15:00 INDICATION: Renal mass. TECHNIQUE: Computed tomography (CT) of the abdomen was performed without and with 100 mL Omnipaque in travenous contrast. Automated exposure control and iterative reconstruction technique were employed. The dose-length product was 1675.86 mGy-cm. COMPARISON: CT abdomen 12/19/2021 FINDINGS: The visualized portions of the lung bases demonstrate emphysema. A calcified right lung nod ule and calcified right hilar lymph nodes are consistent with old granulomatous disease. There is mil d atelectasis bilaterally. There are a few nodules in the lungs measuring up to 4 mm, likely benign. There is mucous plugging in right lower lobe. No pleural effusion. The heart size is normal. There ar e coronary artery calcifications. No pericardial effusion. There are cysts in the liver measuring up to 7 mm. There are gallstones in the gallbladder, which is normal in size. Calcifications in the sple en are consistent with old granulomatous disease. The pancreas and left adrenal gland are normal. The re is a 3.4 cm mass in right adrenal gland measuring low-attenuation, consistent with an adenoma. The re is cortical thinning of the kidneys. There is a 13 mm mass in right kidney that is indeterminate f or contrast enhancement. There are cysts in the kidneys measuring up to 2.1 cm on the right. There is 11 mm mass right kidney that is indeterminate for contrast enhancement. There are no dilated loops o f bowel. The appendix is normal. There is calcified atherosclerosis of the aorta and many of the othe r arteries. There are no pathologically enlarged lymph nodes. There is mild lumbar spondylosis. IMPRESSION: 1. 13 mm and 11 mm right kidney masses that are indeterminate for contrast enhancement and may be ei ther hemorrhagic cysts or renal cell carcinomas. Consider abdomen MRI without and with contrast or fo llow-up abdomen CT without and with contrast. Reviewed, dictated and finalized at location A. IMPRESSION: 1. 13 mm and 11 mm right kidney masses that are indeterminate for contrast enh ancement and may be either hemorrhagic cysts or renal cell carcinomas. Consider abdomen MRI without and with contrast or follow-up abdomen CT without and with contrast.
[2022-09-10 14:52] LABS: Estimated Glomerular Filt Rate 60
== END 2022-09-10 13:58 | disposition home or self-care (01) ==
PROVIDERS: PCP Family Medicine; Visit Provider Urology
DX: N28.89 Other specified disorders of kidney and ureter (principal)
CPT/HCPCS: 74170; Q9967

== ENCOUNTER 2022-11-14 03:11 | Inpatient (IN) | payer MEDICARE, OTHER, SELFPAY ==
[2022-11-14] VITALS (71 sets, daily range): BP systolic 80–144; BP diastolic 40–84; PULSE 61–101; RESP 12–29; TEMP 36.7–37.3; O2SAT 94–100; BMI 33.1; BMI 35.7
--- NOTE | 2022-11-14 | ECHO_ITS ---
Patient Info Name: Rolando Moser Age: 72 years : 1950 Gender: Male Ht: 72 in Wt: 244 lbs BSA: 2.40 m2 HR: 71 bpm BP: 126 / 67 mmHg Heart Rhythm: Sinus Rhythm Technical Quality: Fair Exam Date: 11/14/2022 9:26 AM Exam Location: [facility] Pulmonary Exam Room: ICU2 Patient Status: Inpatient Admit Date: 11/14/2022 Staff Ordering Physician: Colt Somers MD Lead Radiation Therapist: Isabella Beckman RDCS Attending Provider: Volodymyr Baires MD Exam Type: CA echo dop color flow w con Study Info Indications - CHF Complete two-dimensional, color flow and Doppler transthoracic echocardiogram is performed with contrast to opacify the left ventricle and to improve the deliniation of the left ventricle endocardial borders. Summary 1. Technically difficult echocardiogram in this intubated patient. 2. Definity contrast used to improve visualization. 3. Mildly reduced left ventricular systolic function with post hypokinesia more than other segments. 4. Grade 1 diastolic noncompliance. 5. Sclerotic aortic valve which does not appear to be stenotic. 6. Calcified mitral valve annulus. Left Ventricle Left ventricular chamber dimension is normal. Left ventricular systolic function is mildly reduced, estimated at 40-45%. The left ventricular diastolic function is grade I diastolic dysfunction. Right Ventricle Right ventricular chamber dimension is normal. Left Atria Left atrial chamber dimension is mildly enlarged. Right Atria Right atrial chamber dimension is not well visualized. Aortic Valve The aortic valve is trileaflet. There is moderate aortic valve sclerosis. There is no aortic valve stenosis. Pulmonic Valve The pulmonic valve is not well visualized. Mitral Valve The mitral valve has normal leaflets. The mitral valve annulus is mildly calcified. Tricuspid Valve The tricuspid valve leaflets are not well visualized. Pericardium/Pleural The pericardium appears normal. Aorta The aortic root size at the sinus of Valsalva is normal. Left Ventricular Outflow Tract Name Value Normal LVOT 2D LVOT Diameter 2.05 cm LVOT Doppler LVOT Peak Gradient 5 mmHg LVOT Mean Gradient 4 mmHg LVOT VTI 28.78 cm LVOT VTI/AV VTI Ratio 0.83 LVOT Stroke Volume 95.35 ml LVOT CO 18.91 l/min LVOT CI 7.86 L/min/m2 Pulmonic Valve Name Value Normal PV Doppler PV Peak Gradient 3 mmHg Mitral Valve Name Value Normal MV Doppler MV Decel Lamar 371.19 cm/s2 MV PHT
--- NOTE | ~2022-11-14 | XR_ITS ---
EXAMINATION: XR abdomen NG/feed tube rechec DATE: 11/14/2022 17:06 INDICATION: Orogastric tube placement TECHNIQUE: A supine view of the abdomen and lower chest was obtained for evaluation of feeding tube placement. COMPARISON: CT dated 11/14/2022 FINDINGS: Nasogastric tube tip in proximal side port in the body of the stomach. Stool is seen in the visualize d transverse colon. Increased interstitial pattern in the visualized mid and lower lungs consistent w ith mild pulmonary edema. Blunting at the lung bases consistent with small bilateral pleural effusion s. Heart size within normal limits for AP technique. IMPRESSION: 1. Orogastric tube tube in the stomach. 2. Mild pulmonary edema and small bilateral pleural effusions. Reviewed, dictated and finalized at location A.
--- NOTE | ~2022-11-14 | CT_ITS ---
Non-contrast Head CT History: Altered mental status COMPARISON: 10/03/2021 Technique: Axial non-contrast imaging of the brain was performed. Dose reduction technique was used on this scan by utilizing automated exposure control and iterative reconstruction technique. The dose -length product (DLP) was 756.67 mGy-cm. Findings: There is no evidence of intracranial hemorrhage, mass lesion, or acute infarct. Extensive chronic encephalomalacia of the right cerebral hemisphere is stable from prior exam. The ventricles and subarachnoid spaces are normal in size. The calvarium appears normal. Mild left maxillary sinus disease noted. The remaining visualized paranasal sinuses and mastoid air cells are clear. Impression: No acute intracranial abnormality seen. Extensive chronic encephalomalacia in the right cerebral hemisphere is stable from prior exam. Mild sinus disease, as above. Reviewed, dictated and finalized at location . Impression: No acute intracranial abnormality seen. Extensive chronic encephalomalacia in the right cerebral hemisphere is stable f rom prior exam. Mild sinus disease, as above.
--- NOTE | ~2022-11-14 | XR_ITS ---
Portable supine view of the abdomen Clinical history: NG tube placement Findings: NG tube is in satisfactory position, with side-port questionable of the GE junction. No rey ssly dilated bowel loops seen in the upper abdomen. There is extensive interstitial disease in the vi sualized lungs with right basilar haziness. Impression: NG tube in place, side port just below the GE junction. Extensive interstitial pulmonary edema and/or chronic interstitial disease of the lungs. Correlate cl inically. Reviewed, dictated and finalized at location M. Impression: NG tube in place, side port just below the GE junction. Extensive interstitial pulmonary edema and/or chronic interstitial disease of t he lungs. Correlate clinically.
--- NOTE | ~2022-11-14 | CT_ITS ---
EXAMINATION: CT brain wo con DATE: 11/15/2022 14:49 INDICATION: bleeding from left ear . TECHNIQUE: Computed tomography (CT) of the head was performed without intravenous contrast. The mA wa s adjusted according to patient size. Iterative reconstruction technique was employed. The dose-lengt h product was 681.00 mGy-cm. COMPARISON: 11/14/2022. FINDINGS: Motion limited examination. No acute intracranial hemorrhage or extra-axial fluid collection. No hydrocephalus, mass, or herniation. No acute ischemic infarct. Unremarkable dural venous sinus attenuation. No acute osseous abnormality. Old right frontal bone fracture and chance hole. Left maxillary mucosal thickening. Trace right mastoid fluid. The remaining aerated spaces are clear. Moderate atrophy and chronic white matter change. Atherosclerotic intracranial calcification. Right f rontal, temporal, and parietal encephalomalacia. Fluid/hemorrhage in the external auditory meatus. IMPRESSION: No acute intracranial process. Fluid/hemorrhage in the external auditory meatus, without evidence of mastoiditis, middle ear involvement, soft tissue mass or adjacent osseous erosion. Reviewed, dictated and finalized at location K. IMPRESSION: No acute intracranial process. Fluid/hemorrhage in the external auditory meatus , without evidence of mastoiditis, middle ear involvement, soft tissue mass or adjacent osseous erosion.
--- NOTE | ~2022-11-14 | CT_ITS ---
Clinical Indication: Dyspnea, altered mental status CT Scan of the Chest, Abdomen, and Pelvis with Contrast: Technique: Contiguous sections were acquired throughout the chest, abdomen, and pelvis after intraven ous administration of 100 cc of Omnipaque 350. Dose reduction technique was used on this scan by rocio meeking automated exposure control and iterative reconstruction technique. The dose-length product (DL P) was 2281.05 mGy-cm. COMPARISON: 09/10/2022 and 12/19/2021 and 06/22/2018 Findings: Endotracheal tube and NG tube are in place. Mildly prominent AP window lymph and left paratracheal nodes are present, largest node measuring 12 m m in short axis (axial image 95).. There are extensive atherosclerotic calcifications of the aorta an d coronary arteries. No pulmonary embolus identified. No pericardial effusion. Moderate right pleural effusion and small left pleural effusion are present, with mild bibasilar atel ectatic change. There is probable mild diffuse interstitial thickening, consistent with mild intersti tial edema. Moderate emphysema noted. Several very small hepatic hypodensities are present, too small to definitively characterize, but mos t likely very small cysts The spleen, pancreas, gallbladder, left ureter length, and kidneys are with in normal limits. Stable 2.9 cm right adrenal nodule. There are extensive atherosclerotic calcificati ons of the aorta. No lymphadenopathy. No bowel obstruction or bowel wall thickening. Normal appendix. Moderate stool burden. Urinary bladder is collapsed around a Mar catheter. Prostate gland and seminal vesicles are unremar kable. No ascites. Impression: No pulmonary embolus. Moderate right pleural effusion and small left pleural effusion, with mild bibasilar atelectatic cardona ge. Interstitial pulmonary edema. Moderate emphysema. Mildly prominent AP window and left paratracheal lymph nodes, indeterminate, but presumably reactive. No acute abnormality in the abdomen or pelvis. Stable 2.9 cm right adrenal nodule since 2018, therefo re likely benign. Reviewed, dictated and finalized at location M. Impression: No pulmonary embolus. Moderate right pleural effusion and small left pleural effusion, with mild biba silar atelectatic change. Interstitial pulmonary edema. Moderate emphysema. Mildly prominent AP window and left paratracheal lymph nodes, indeterminate, bu t presumably reactive. No acute abnormality in the abdomen or pelvis. Stable 2.9 cm right adrenal nodu le since 2018, therefore likely benign.
--- NOTE | ~2022-11-14 | XR_ITS ---
Portable chest x-ray Comparison: 11/14/2022 Clinical History: Tube placement Findings: Endotracheal tube in satisfactory position. NG tube present, side port probably in the dis valeri esophagus. Further advancement into the stomach by at least 5 cm advised.. Moderate pulmonary pavel ma pattern is unchanged. Probable small right pleural effusion. Cardiomediastinal silhouette is stab le. Bones and soft tissues are unremarkable. Impression: NG tube side-port probably at the distal esophagus. Further advancement by at least 5 cm into the sto mach advised. ET tube in satisfactory position. Moderate pulmonary edema pattern, with probable small right pleural effusion. Reviewed, dictated and finalized at location . Impression: NG tube side-port probably at the distal esophagus. Further advancement by at l east 5 cm into the stomach advised. ET tube in satisfactory position. Moderate pulmonary edema pattern, with probable small right pleural effusion.
--- NOTE | ~2022-11-14 | XR_ITS ---
Portable chest x-ray Comparison: 10/02/2021 Clinical History: Tube placement Findings: Endotracheal tube and NG tube are in satisfactory positions. There is extensive hazy and i nterstitial pulmonary disease, right lung worse than left. Probable small right pleural effusion. Ca rdiomediastinal silhouette is stable. Bones and soft tissues are unremarkable. Impression: Support tubes, as above. Extensive hazy and interstitial pulmonary disease, right lung worse than left. Findings suggest moder ate to advanced pulmonary edema. Correlate clinically for underlying interstitial disease or infectio n. Probable small right pleural effusion. Reviewed, dictated and finalized at location . Impression: Support tubes, as above. Extensive hazy and interstitial pulmonary disease, right lung worse than left. Findings suggest moderate to advanced pulmonary edema. Correlate clinically for underlying interstitial disease or infection. Probable small right pleural effusion.
--- NOTE | ~2022-11-14 | XR_ITS ---
EXAMINATION: XR chest 1V portable INDICATION: Respiratory failure TECHNIQUE: Portable AP chest at 0541 hours COMPARISON: 11/14/2022 FINDINGS: The endotracheal tube ends approximately 3.6 cm above the keegan. The nasogastric tube is f ollowed as far as the stomach. Its tip is beyond the inferior margin of the radiograph. Diffuse inter stitial opacities persist without significant change. The cardiomediastinal silhouette is stable. The re is minimal opacification of the right lung base. There is no pneumothorax. IMPRESSION: 1. Stable diffuse lung disease, consistent with pneumonia and/or pulmonary edema. 2. Right basilar opacity, consistent with pleural effusion and/or atelectasis. Reviewed, dictated and finalized at location A. IMPRESSION: 1. Stable diffuse lung disease, consistent with pneumonia and/or pulmonary queenie a. 2. Right basilar opacity, consistent with pleural effusion and/or atelectasis.
--- NOTE | 2022-11-14 03:19 | PC.NURSE ---
VORB 20 mg of Etomidate and 100 mg of Succinycholine per EDP.
--- NOTE | 2022-11-14 03:25 | ED.GENADULT ---
HPI - General Adult General Chief complaint: Altered Mental Status Stated complaint: dyspnea History of Present Illness HPI narrative: Patient is a 72-year-old gentleman who presents the emergency department with chief complaint of altered mental status and shortness of breath. Patient presented to the emergency department via EMS after they were called for shortness of breath and decreased responsiveness. When EMS arrived they found him with a saturation on room air in the 60s. The patient was minimally responsive they attempted CPAP in the field without success. On a nonrebreather the patient did have improvement in his oxygenation but was unresponsive to painful stimuli. History is limited due to the patient being altered. Upon initial arrival airway was secured with an endotracheal tube Related Data Home Medications Medication Instructions Recorded Confirmed aspirin 81 mg tablet 162 mg PO DAILY 10/02/21 11/10/22 diltiazem HCl 120 mg 120 mg PO DAILY 10/02/21 11/10/22 capsule,extended release 24 hr, controlled (DILT-XR) furosemide 20 mg tablet (Lasix) 40 mg PO BID 10/02/21 11/10/22 rosuvastatin 20 mg tablet 20 mg PO QPM 10/02/21 11/10/22 Allergies Allergy/AdvReac Type Severity Reaction Status Date / Time No Known Allergies Allergy Verified 11/10/22 10:04 Review of Systems Review of Systems: ROS unobtainable: Yes unobtainable due to endotracheal tube PMFSH Past Medical History Medical History Anxiety BMI 34.0-34.9,adult Diastolic dysfunction Diverticulitis Essential hypertension Mixed hyperlipidemia Post-traumatic stress disorder, unspecified Restless leg syndrome Tobacco abuse Surgical History Surgical History History of cystoscopy History of exploratory laparotomy With adhesiolysis and splenic flexure takedown. Also previous enterotomy with removal of foreign body (presumed clove of garlic). History of open sigmoidectomy For diverticulitis. History of tonsillectomy Family History Family History Mother Hypertension Family history of diabetes mellitus in first degree relative Depression Family history of cataracts Family history of arthritis Family history of hearing loss Father Family history of malignant neoplasm Other Cerebrovascular accident Social History Social History Social History: Surrogate decision maker: Barbara Moser, . Code status: Full code. Smoking packs per day: 1 Smoking cigarettes per day: 20.0 Years smoked: 30 Smoking pack-years: 30.00 Smoking status: Current every day smoker Tobacco type: cigarettes Second hand tobacco smoke exposure: No Alcohol intake: former Substance use: current Substance use type: marijuana Last use: last smoked about a month ago Lack of Transportation: No Lack of Food: Never True Current Housing: I Have Housing Concerned About Future Housing: No Difficulty Paying Gas/Electric Bills: No Difficulty Paying for Meds: No Currently Unemployed: YES Education: High School Diploma/GED Difficulty w/ Childcare or Family Care: No Living arrangements: with family Occupation/Education: retired 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 EYES: PERRLA . ENT: Nares clear, no rhinorrhea or epistaxis. Mucous membranes moist. NECK: Supple. CHEST: Coarse breath sounds to auscultation. Moderate respiratory distress. HEART: Regular rate and rhythm. No murmur heard. Normal peripheral pulses. ABDOMEN: Soft, nontender, nondistended, normal active bowel sounds.
--- NOTE | 2022-11-14 03:27 | ECG_ITS ---
Rate 84 CT 156 QRSd 157 QT 396 QTc 469 --[place]-- P 28 QRS 167 T 65 SINUS RHYTHM RIGHT BUNDLE BRANCH BLOCK LEFT POSTERIOR FASCICULAR BLOCK CONSIDER ANTERIOR INFARCT, AGE INDETERMINATE BASELINE WANDER- V5-V6 ABNORMAL ECG COMPARED TO ECG 10/02/2021 13:26:40 LEFT POSTERIOR FASCICULAR BLOCK NOW PRESENT MYOCARDIAL INFARCT FINDING NOW PRESENT Electronically Signed On 11-21-2022 7:54:33 CDT by Bandar CABRERA
[2022-11-14] MEDS: PROPOFOL IV EMULSION 100 ML 3.32 MG IV CONT (03:41)
[2022-11-14 03:53] LABS: Base Excess ABG -5.8 mEq/l (+/-2.0); Fractional Inspired Oxygen 100 %; HCO3 ABG 25.9 mEq/l (22.0-26.0); Oxygen Content ABG 22.2 %vol (16.0-22.0); Oxygen Saturation ABG 99.4 % (95.0-100.0); Oxyhemoglobin 93.1 % THb (90.0-100.0); PO2 ABG 263.7 mmHg (80.0-100.0); PO2 FiO2 Ratio Arterial Blood 2.64 %; Total Hemoglobin 16.5 g/dL (12.0-18.0)
[2022-11-14 03:55] LABS: pH ABG 7.126 (7.350-7.450)
[2022-11-14 03:56] LABS: Arterial Blood Gas PEEP 5 cmH2O; Arterial Blood Gas Tidal Volume 500 ml; Arterial Blood Gas Vent Mode CMV; Arterial Blood Gas Ventilator rate 18 /MIN; Device VENTILATOR; Modified Allen's Test Pass; PCO2 ABG 80.3 mmHg (35.0-45.0); Site Drawn RIGHT RADIAL
[2022-11-14 04:06] LABS: Appearance Urine Clear (Clear); Bacteria Urine None Seen /hpf; Bilirubin Urine Negative (Negative); Blood Urine Negative (Negative); Color Urine Yellow (Yellow); Glucose Urine UA Negative (Negative); Ketones Urine Negative (Negative); Leukocyte Esterase Ur Negative LEU/UL (Negative); Nitrate Urine Negative (Negative); Protein Urine 2+ mg/dL (Negative); RBC Urine 0-2 /hpf (0-2); Specific Grav Ur 1.013 (1.001-1.035); Squamous Epithelial Cell Urine None seen /hpf (Few); Urobilinogen Urine 0.2 mg/dL (<2.0); WBC Urine 0-5 /hpf
[2022-11-14 04:12] LABS: Ethanol < 10 mg/dL (<10)
[2022-11-14 04:14] LABS: Add Urine Microscopic? YES
[2022-11-14 04:36] LABS: Estimated CRCL calculation 63 ml/min; Estimated Glomerular Filt Rate 59
[2022-11-14 04:38] LABS: Influenza A QL RT-PCR Negative (Negative); Influenza B QL RT-PCR Negative (Negative); RSV RNA, RT-PCR Negative (Negative); SARS-CoV-2 RNA PCR Negative (Negative)
--- NOTE | 2022-11-14 05:11 | PC.NURSE ---
Propofol stopped due to hypotension: EDP notified.
[2022-11-14] MEDS: FENTANYL 2,500MCG/NS250ML(*CRX 2,500 MCG/250 ML BAG IV CONT (05:16)
[2022-11-14 05:21] LABS: Basophils Absolute Auto 0.1 K/mm3 (0.0-0.1); Basophils Percent Auto 0.6 % (0.2-1.2); Eosinophils Absolute Auto 0.1 K/mm3 (0-0.3); Eosinophils Percent Auto 0.5 % (0-4.4); Hematocrit 43.8 % (42.0-52.0); Hemoglobin 14.2 g/dL (14.0-18.0); Immature Granulocyte Percent A 2.3 % (0-0.5); Lymphocytes Absolute Auto 0.72 K/mm3 (0.9-3.2); Lymphocytes Percent Auto 4.1 % (18.3-44.2); Mean Corpuscular HGB Conc 32.4 g/dl (32-36); Mean Corpuscular Hemoglobin 30.5 pg (26-34); Mean Platelet Volume 9.1 fl (7.4-10.4); Monocytes Absolute Auto 0.9 K/mm3 (0.1-0.6); Monocytes Percent Auto 5.3 % (2.6-8.5); Neutrophils Absolute Auto 15.4 K/mm3 (1.3-6.7); Neutrophils Percent Auto 87.2 % (45.5-73.1); Platelet Count Result 240 k/mm3 (150-375); Red Blood Count 4.66 M/mm3 (4.6-6.20); Red Cell Distribution Width 15.4 % (11.5-14.5); White Blood Count 17.6 K/mm3 (4.5-10.0)
[2022-11-14] MEDS: PIPERACILLN/TAZ 3.375GM/NS50ML 3.375 GM/50 ML BAG IVPB (05:21)
[2022-11-14] MEDS: SODIUM CHLORIDE 0.9% IV 1,000 ML 999 ML IV CONT ×3 (05:23→05:59)
[2022-11-14 05:24] LABS: Lactic Acid Reflex 2.7 mmol/L (0.7-2.0)
--- NOTE | 2022-11-14 05:26 | PC.NURSE ---
EDP at bedside preparing to insert a right femoral central line.
[2022-11-14 05:36] LABS: Triglycerides 190 mg/dL (<150)
[2022-11-14 05:50] LABS: Alanine Aminotransferase 24 U/L (6-50); Albumin Level 3.6 g/dL (3.5-5.1); Alkaline Phosphatase 80 U/L (38-126); Anion Gap 3 mmol/L (8-16); Aspartate Amino Transferase 30 U/L (17-59); Bilirubin,Total 0.9 mg/dL (0.2-1.3); Blood Urea Nitrogen 13 mg/dL (9-20); Calcium 8.4 mg/dL (8.4-10.2); Carbon Dioxide 33 mmol/L (22-30); Chloride 99 mmol/L (98-107); Estimated CRCL calculation 58 ml/min; Estimated Glomerular Filt Rate 54; Glucose 212 mg/dL (65-110); NT Pro B Type Natriuretic Pept 4950 pg/mL (19.9-100); Potassium 4.9 mmol/L (3.4-5.0); Sodium 135 mmol/L (137-145)
[2022-11-14] MEDS: NOREPINEPHRINE 8 MG/D5W 250 ML 8 MG/250 ML BAG 9.38 MG IV CONT (05:50)
[2022-11-14 05:54] LABS: Partial Thromboplastin Time 29.3 SECONDS (22.3-36.8); Prothrombin Time 14.2 Seconds (11.1-14.7)
[2022-11-14] MEDS: VANCOMYCIN 1,250 MG/NS 250 ML 1,250 MG/250 ML BAG 166.67 MG IVPB ×2 (05:55→08:57)
[2022-11-14 06:01] LABS: Alveolar/Arterial O2 Gradient 358.6 mmHg; Carboxyhemoglobin 3.3 % THb (0-2.0); Fractional Inspired Oxygen 70 %; HCO3 ABG 24.3 mEq/l (22.0-26.0); Methemoglobin ABG 0.4 %THb (0-1.5); Oxygen Content ABG 17.4 %vol (16.0-22.0); Oxygen Saturation ABG 95.1 % (95.0-100.0); Oxyhemoglobin 91.5 % THb (90.0-100.0); PCO2 ABG 52.2 mmHg (35.0-45.0); PO2 ABG 84.4 mmHg (80.0-100.0); PO2 FiO2 Ratio Arterial Blood 1.21 %; Reduced Hemoglobin 4.8 %THb (0-5.0); Total Hemoglobin 13.5 g/dL (12.0-18.0)
[2022-11-14 06:03] LABS: Device VENTILATOR; Modified Allen's Test Pass; Site Drawn RIGHT RADIAL; pH ABG 7.285 (7.350-7.450)
[2022-11-14 06:04] LABS: Arterial Blood Gas PEEP 5 cmH2O; Arterial Blood Gas Tidal Volume 500 ml; Arterial Blood Gas Vent Mode CMV; Arterial Blood Gas Ventilator rate 24 /MIN
--- NOTE | 2022-11-14 07:11 | PC.NURSE ---
At [address] Mckee; 23 cm at the lip, colormetric device utilized, respiratory therapy at bedside.
--- NOTE | 2022-11-14 07:21 | PC.NURSE ---
Report given to Jeovany ROBBINS. Care is transferred without changes in patient condition.
[2022-11-14 07:47] LABS: Procalcitonin 0.1 ng/mL
[2022-11-14 08:11] LABS: Reflex Lactic Acid Yes or No Add Lactic
--- NOTE | 2022-11-14 08:15 | ADMGEN ---
This patient, Rolando Moser, was admitted to Intensive Care Unit-2. Patient/family oriented to hospital policies and general routines including ID bracelet, bed and alarms, visiting hours, pain management, procedures, bathroom and other care routines, personal items, smoking policy, room service/diet, and visiting hours. Information on how to activate the Rapid Response Team has been discussed. Patient/Family are encouraged to report perceived risks to care and to ask questions if they do not understand what they are told or what they should do.
--- NOTE | 2022-11-14 08:51 | WPDCNINT ---
Assessment and Plan Assessment and plan (1) Shock: Code(s): R57.9 - Shock, unspecified Status: Acute Assessment and Plan: Patient presented with hypotension, shortness of breath and decreased responsiveness was started in the ER. Remained hypotensive despite 3 L of IV fluid bolus, right femoral central line was inserted in the ED and started on Levophed -source could be hypovolemia, septic versus cardiogenic shock, CHF exacerbation, infection -titrate Levophed to maintain MAP > 65 mmHg for adequate end organ perfusion -started on vancomycin and Zosyn in the ED on 11/14, for presumed pneumonia -11/14: blood cultures have been obtained -11/14: Sputum culture ordered -lactic acid was 2.2, will trend -procalcitonin was 0.1 -will monitor urine output and renal function -have discontinued maintenance IV fluids as patient has pulmonary edema bilaterally on chest CT and CXR (2) Acute hypercapnic respiratory failure: Code(s): J96.02 - Acute respiratory failure with hypercapnia Status: Acute Assessment and Plan: 11/14: Patient presented to the ED with shortness of breath, decreased responsiveness, O2 sats on room air upon arrival of the EMS to the house was 60% -11/14: Intubated in the ED upon arrival -patient currently on CMV mode of ventilation, peep of 5, 50% FiO2 -started patient on bronchodilators, and has home Trelegy Ellipta -bilateral wheezing started patient on Solu-Medrol -sedated with fentanyl infusion, maintain RASS of 0 to -1, daily SAT and SBT 11/14: Chest x-ray showed moderate pulmonary edema with probable small right pleural effusion 11/14: CT scan of the chest/abdomen/pelvis: No pulmonary embolism, moderate right pleural effusion small left pleural effusion with mild basilar atelectatic changes, interstitial pulmonary edema, moderate emphysema. Mild prominent AP window and left per her tracheal lymph nodes, indeterminate, but presumably reactive. No acute abnormality in the abdomen and pelvis, stable 2.9 right adrenal nodule since 2018 therefore likely benign. (3) COPD (chronic obstructive pulmonary disease): Code(s): J44.9 - Chronic obstructive pulmonary disease, unspecified Status: Acute Assessment and Plan: Patient with history of COPD, on bronchodilators home -currently intubated on mechanical ventilation, will continue bronchodilators and home Trelegy Ellipta -bilateral diffuse wheezing, started patient on Solu-Medrol (4) CHF (congestive heart failure): Qualifiers: Heart failure chronicity: unspecified Heart failure type: unspecified Qualified Code(s): I50.9 - Heart failure, unspecified Code(s): I50.9 - Heart failure, unspecified Status: Acute Assessment and Plan: CT PE protocol and Chest x-ray shows bilateral pulmonary edema, no PE -will hold IV fluids Check echocardiogram (5) Elevated glucose: Code(s): R73.09 - Other abnormal glucose Status: Acute Assessment and Plan: Elevated blood sugars, started patient on Accu-Cheks and sliding scale insulin (6) Tobacco abuse: Code(s): Z72.0 - Tobacco use Status: Acute Assessment and Plan: History of tobacco and marijuana use, will counselor aide patient when he is extubated (7) Elevated troponin: Code(s): R77.8 - Other specified abnormalities of plasma proteins Status: Acute Assessment and Plan: Elevated troponin could be related to acute respiratory failure, shock, possible CAD -troponin was 1.510, will trend -EKG showed right bundle-branch block, no ST elevations noted -will have Cardiology follow the patient (8) Altered mental status: Code(s): R41.82 - Altered mental status, unspecified Status: Acute Assessment and Plan: Altered mental status likely related to hypercapnic respiratory failure, CHF exacerbation, hypoxia -currently intubated and sedated, daily sedation vacation and evaluate mental status Plan DVT prop
[2022-11-14] MEDS: PANTOPRAZOLE SODIUM IV 40 MG VIAL IV PUSH (08:56)
[2022-11-14] MEDS: ENOXAPARIN 40 MG/0.4 ML SYRINGE SUB-Q (08:57)
[2022-11-14 09:13] LABS: Lactic Acid 2.2 mmol/L (0.7-2.0)
[2022-11-14] MEDS: ALBUMIN HUMAN 25% 25 GM/100 ML 100 ML IVPB ×4 (09:20→23:52)
[2022-11-14] MEDS: methylPREDNISolone SOD SUCC 125 MG VIAL IV PUSH (09:31)
[2022-11-14] MEDS: PERFLUTREN LIPID MICROSPHERES 1.5 ML VIAL DILUTED TO 10 ML TOTAL VOLUME IV PUSH (09:55)
[2022-11-14] MEDS: LEVALBUTEROL NEB 1.25 MG/3 ML 0.63 MG INHALATION ×3 (09:59→20:53)
[2022-11-14] MEDS: BUDESONIDE RESPULE NEB 0.5 MG/2 ML AMP INHALATION ×2 (09:59→20:54)
[2022-11-14] MEDS: IPRATROPIUM BR 0.02% INH SOLN 0.5 MG/2.5 ML VIAL INHALATION ×3 (09:59→20:54)
[2022-11-14] MEDS: HEPARIN SODIUM 5,000 UNITS/ML VIAL 4000 UNITS IV PUSH (10:55)
[2022-11-14] MEDS: HEPARIN SOD/D5W 100 UNITS/ML 25,000 UNITS/250 ML BAG 10 UNITS IV CONT (10:56)
[2022-11-14] MEDS: ASPIRIN 81 MG CHEWABLE TABLET 324 MG PO (11:00)
[2022-11-14] MEDS: DOXYCYCLINE 100 MG/NS 100 ML 100 MG/100 ML BAG IVPB ×2 (11:01→21:16)
[2022-11-14] MEDS: cefTRIAXone 2 GM/NS 100 ML 2 GM/100 ML BAG IVPB ×2 (11:01→21:16)
[2022-11-14 11:43] LABS: Glucose Point of Care 119 mg/dl (65-105)
[2022-11-14 13:26] LABS: Alveolar/Arterial O2 Gradient 155.3 mmHg; Base Excess ABG -1.4 mEq/l (+/-2.0); Device VENTILATOR; Fractional Inspired Oxygen 40 %; HCO3 ABG 24.5 mEq/l (22.0-26.0); Modified Allen's Test Pass; Oxygen Saturation ABG 94.8 % (95.0-100.0); Oxyhemoglobin 93.1 % THb (90.0-100.0); PCO2 ABG 45.6 mmHg (35.0-45.0); PO2 ABG 77.5 mmHg (80.0-100.0); PO2 FiO2 Ratio Arterial Blood 1.94 %; Site Drawn RIGHT RADIAL; Total Hemoglobin 14.5 g/dL (12.0-18.0); pH ABG 7.348 (7.350-7.450)
[2022-11-14 13:27] LABS: Arterial Blood Gas PEEP 8 cmH2O; Arterial Blood Gas Tidal Volume 450 ml; Arterial Blood Gas Vent Mode CMV; Arterial Blood Gas Ventilator rate 24 /MIN
[2022-11-14 13:32] LABS: Lactic Acid Reflex 1.3 mmol/L (0.7-2.0)
--- NOTE | 2022-11-14 16:05 | PM.CNCAR ---
Assessment and Plan Assessment and plan (1) Acute hypercapnic respiratory failure: Code(s): J96.02 - Acute respiratory failure with hypercapnia Status: Acute (2) Elevated troponin: Code(s): R77.8 - Other specified abnormalities of plasma proteins Status: Acute Plan This is a 72-year-old man with a background of diastolic dysfunction/hypertension mildly sclerotic aortic valve and longstanding tobacco abuse. She enters the hospital after being found unresponsive with respiratory difficulty in his home was intubated in the emergency room and admitted to the ICU. In that setting his troponin levels have been sampled and not surprisingly there has been a moderate elevation. There is no obvious acute WA in his ECG however troponin levels did rise moderately. At this time aggressive supportive care is recommended I will try giving him some intravenous furosemide since he is off of the pressor support and lungs appear to be quite congested by exam and chest x-ray. If the patient has a successful treatment and weaning from the ventilator obviously further cardiac evaluation will have to be considered at that time. 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 He was hospitalized in ICU 2. Intubated and on mechanical ventilator support. The entire history is therefore obtained from the chart here and the chart from my office. Apparently the patient was brought here in the middle of the night after he was found in his home sitting in a recliner in an unresponsive state by his . When he was removed evaluated by EMS apparently he was markedly hypoxic. He was intubated in the emergency room at [facility] and admitted to the ICU for further evaluation and management. The patient's chest x-ray demonstrates significant pulmonary congestion apparently worse on the right lung than on the left. He according to the records was not reporting any chest pain. His electrocardiogram shows sinus rhythm with right bundle branch block which appears to be chronic. There is no acute ST segment elevation or current of injury. Troponin levels have been rising the last sample is over 4.0. He was receiving some intravenous pressor support earlier today since about mid day he has been off of pressors and is on mechanical ventilation also receiving some antibiotics. The patient has a history of diastolic dysfunction and chronic hypertension and for these problems has been a patient of my partner, Dr. Castro. He was originally seen in consultation back in the end of 2020 for this and was treated medically with antihypertensives and diuretics and has been according to the office charts doing relatively well. He was last seen in the office in April of 2022 over which time he did not have any cardiovascular complaints he is known to have a sclerotic aortic valve but no significant aortic valve stenosis. According to the records he and his are longstanding cigarette smokers. His medical regimen at home consisted of furosemide 40 mg b.i.d. as well as a low dose of long-acting diltiazem and metoprolol XL according to the chart at 150 mg daily. An echocardiogram was done earlier today which is a technically suboptimal study as the patient is obese and on a ventilator it does appear to show mild LV systolic dysfunction with an ejection fraction in the range of 40-45%. This would represent some decline compared to prior exams. Review of Systems Review of Systems: ROS unobtainable: Yes unobtainable due to endotracheal tube PMFSH Past Medical History Medical History A
[2022-11-14] MEDS: FUROSEMIDE INJ 100 MG/10 ML VIAL 80 MG IV PUSH (16:19)
[2022-11-14 16:37] LABS: Glucose Point of Care 153 mg/dl (65-105)
[2022-11-14 16:53] LABS: INR 1.1; Prothrombin Time 14.8 Seconds (11.1-14.7)
[2022-11-14] MEDS: ROSUVASTATIN 10 MG TABLET 20 MG PO (17:16)
[2022-11-14] MEDS: methylPREDNISolone SOD SUCC 40 MG VIAL IV PUSH ×2 (17:16→23:53)
[2022-11-14 17:27] LABS: Partial Thromboplastin Time 85.9 SECONDS (22.3-36.8)
[2022-11-14] MEDS: rOPINIRole HCL 0.5 MG TABLET PO (21:17)
[2022-11-15] VITALS (32 sets, daily range): BP systolic 98–130; BP diastolic 52–71; PULSE 88–120; RESP 13–28; TEMP 36.6–36.9; O2SAT 92–97
[2022-11-15 00:22] LABS: Glucose Point of Care 188 mg/dl (65-105)
[2022-11-15 00:28] LABS: Partial Thromboplastin Time 42.5 SECONDS (22.3-36.8)
[2022-11-15] MEDS: HEPARIN SODIUM 5,000 UNITS/ML VIAL 4000 UNITS IV PUSH (00:48)
[2022-11-15] MEDS: LEVALBUTEROL NEB 1.25 MG/3 ML 0.63 MG INHALATION ×3 (02:44→15:18)
[2022-11-15] MEDS: IPRATROPIUM BR 0.02% INH SOLN 0.5 MG/2.5 ML VIAL INHALATION ×3 (02:44→15:17)
[2022-11-15 04:58] LABS: Alveolar/Arterial O2 Gradient 148.6 mmHg; Base Excess ABG -0.5 mEq/l (+/-2.0); Carboxyhemoglobin 0.5 % THb (0-2.0); Fractional Inspired Oxygen 40 %; HCO3 ABG 26.1 mEq/l (22.0-26.0); Methemoglobin ABG 0.4 %THb (0-1.5); Oxygen Content ABG 18.1 %vol (16.0-22.0); Oxygen Saturation ABG 94.7 % (95.0-100.0); Oxyhemoglobin 93.9 % THb (90.0-100.0); PCO2 ABG 50.4 mmHg (35.0-45.0); PO2 ABG 78.6 mmHg (80.0-100.0); PO2 FiO2 Ratio Arterial Blood 1.96 %; Reduced Hemoglobin 5.2 %THb (0-5.0); Total Hemoglobin 13.7 g/dL (12.0-18.0); pH ABG 7.332 (7.350-7.450)
[2022-11-15 04:59] LABS: Arterial Blood Gas PEEP 8 cmH2O; Arterial Blood Gas Vent Mode CMV; Arterial Blood Gas Ventilator rate 24 /MIN; Device VENTILATOR; Modified Allen's Test Pass; Site Drawn LEFT RADIAL
[2022-11-15 05:00] LABS: Arterial Blood Gas Tidal Volume 450 ml
[2022-11-15] MEDS: methylPREDNISolone SOD SUCC 40 MG VIAL IV PUSH ×3 (06:29→17:10)
[2022-11-15 06:34] LABS: Glucose Point of Care 229 mg/dl (65-105)
[2022-11-15] MEDS: INSULIN ASPART (*BKC) 100 UNITS/ML SUB-Q ×3 (06:38→17:09)
[2022-11-15 06:41] LABS: Basophils Percent Auto 0.1 % (0.2-1.2); Hematocrit 35.8 % (42.0-52.0); Hemoglobin 11.6 g/dL (14.0-18.0); Immature Granulocyte Absolute 0.13 K/mm3 (0.00-0.031); Immature Granulocyte Percent A 0.8 % (0-0.5); Lymphocytes Absolute Auto 0.61 K/mm3 (0.9-3.2); Lymphocytes Percent Auto 3.7 % (18.3-44.2); Mean Corpuscular HGB Conc 32.4 g/dl (32-36); Mean Corpuscular Hemoglobin 29.5 pg (26-34); Mean Corpuscular Volume 91.1 fl (80-100); Mean Platelet Volume 8.8 fl (7.4-10.4); Monocytes Absolute Auto 0.6 K/mm3 (0.1-0.6); Monocytes Percent Auto 3.4 % (2.6-8.5); Neutrophils Absolute Auto 15.3 K/mm3 (1.3-6.7); Platelet Count Result 153 k/mm3 (150-375); Red Blood Count 3.93 M/mm3 (4.6-6.20); Red Cell Distribution Width 14.5 % (11.5-14.5); White Blood Count 16.6 K/mm3 (4.5-10.0)
[2022-11-15 06:52] LABS: Lactic Acid Reflex 2.5 mmol/L (0.7-2.0)
[2022-11-15 06:53] LABS: Alanine Aminotransferase 23 U/L (6-50); Albumin Level 4.1 g/dL (3.5-5.1); Alkaline Phosphatase 62 U/L (38-126); Anion Gap 8 mmol/L (8-16); Aspartate Amino Transferase 31 U/L (17-59); Bilirubin,Total 0.4 mg/dL (0.2-1.3); Blood Urea Nitrogen 18 mg/dL (9-20); Carbon Dioxide 30 mmol/L (22-30); Chloride 99 mmol/L (98-107); Estimated CRCL calculation 73 ml/min; Estimated Glomerular Filt Rate > 60; Glucose 199 mg/dL (65-110); Magnesium 1.9 mg/dL (1.6-2.3); Phosphorus 3.7 mg/dL (2.5-4.5); Potassium 3.9 mmol/L (3.4-5.0); Sodium 137 mmol/L (137-145)
[2022-11-15 07:17] LABS: Partial Thromboplastin Time 62.4 SECONDS (22.3-36.8)
[2022-11-15] MEDS: HEPARIN SODIUM 5,000 UNITS/ML VIAL 3500 UNITS IV PUSH (07:20)
[2022-11-15] MEDS: HEPARIN SOD/D5W 100 UNITS/ML 25,000 UNITS/250 ML BAG 16 UNITS IV CONT (07:23)
[2022-11-15] MEDS: BUDESONIDE RESPULE NEB 0.5 MG/2 ML AMP INHALATION (07:46)
[2022-11-15] MEDS: ASPIRIN 81 MG CHEWABLE TABLET PO (08:18)
[2022-11-15] MEDS: FUROSEMIDE INJ 40 MG/4 ML VIAL 20 MG IV PUSH ×2 (08:19→14:21)
[2022-11-15] MEDS: DOXYCYCLINE 100 MG/NS 100 ML 100 MG/100 ML BAG IVPB (08:19)
[2022-11-15] MEDS: PANTOPRAZOLE SODIUM IV 40 MG VIAL IV PUSH (08:20)
--- NOTE | 2022-11-15 08:30 | WPDINTPN ---
Progress Note: A&P Assessment and Plan (1) Shock: Code(s): R57.9 - Shock, unspecified Status: Acute Assessment and Plan: Patient presented with hypotension, shortness of breath and decreased responsiveness was started in the ER. Remained hypotensive despite 3 L of IV fluid bolus, right femoral central line was inserted in the ED and started on Levophed -source could be hypovolemia, septic versus cardiogenic shock, CHF exacerbation, infection -OFF LEVOPHED -continue vancomycin and doxycycline (11/14) and cefepime (11/15), patient was started on Zosyn which was discontinued on 11/14 -11/14: Preliminary blood cultures are negative x2 -11/14: Sputum culture pending -11/14: MRSA screen is pending -lactic acid was 2.5 this morning -procalcitonin was 0.1 -will monitor urine output and renal function -have discontinued maintenance IV fluids as patient has pulmonary edema bilaterally on chest CT and CXR (2) Acute hypercapnic respiratory failure: Code(s): J96.02 - Acute respiratory failure with hypercapnia Status: Acute Assessment and Plan: 11/14: Patient presented to the ED with shortness of breath, decreased responsiveness, O2 sats on room air upon arrival of the EMS to the house was 60% -11/14: Intubated in the ED upon arrival -patient currently on CMV mode of ventilation, peep of 8, 40% FiO2 -continue bronchodilators, Trelegy Ellipta -bilateral wheezing on admission started patient on Solu-Medrol, wheezing has resolved -sedated with fentanyl infusion, maintain RASS of 0 to -1, daily SAT and SBT -chest x-ray this morning: Stable diffuse lung disease, consistent with pneumonia and/or pulmonary edema.. Right basilar opacity, consistent with pleural effusion and/or atelectasis. 11/14: CT scan of the chest/abdomen/pelvis: No pulmonary embolism, moderate right pleural effusion small left pleural effusion with mild basilar atelectatic changes, interstitial pulmonary edema, moderate emphysema. Mild prominent AP window and left per her tracheal lymph nodes, indeterminate, but presumably reactive. No acute abnormality in the abdomen and pelvis, stable 2.9 right adrenal nodule since 2018 therefore likely benign. (3) COPD (chronic obstructive pulmonary disease): Code(s): J44.9 - Chronic obstructive pulmonary disease, unspecified Status: Acute Assessment and Plan: Patient with history of COPD, on bronchodilators home -currently intubated on mechanical ventilation, will continue bronchodilators and home Trelegy Ellipta -continue Solu-Medrol (4) CHF (congestive heart failure): Qualifiers: Heart failure chronicity: unspecified Heart failure type: unspecified Qualified Code(s): I50.9 - Heart failure, unspecified Code(s): I50.9 - Heart failure, unspecified Status: Acute Assessment and Plan: CT PE protocol and Chest x-ray shows bilateral pulmonary edema, no PE -will hold IV fluids -11/14 echocardiogram: Showed mildly reduced LV systolic function with EF of 40-45% with posterior hypokinesia more than of the segments. Grade 1 diastolic dysfunction, sclerotic aortic valve which does not appear to be stenotic, deferred mitral valve annulus P.r.n. Gabbie, Cardiology following and agreeable (5) Elevated glucose: Code(s): R73.09 - Other abnormal glucose Status: Acute Assessment and Plan: Elevated blood sugars, -continue Accu-Cheks and sliding scale insulin (6) Tobacco abuse: Code(s): Z72.0 - Tobacco use Status: Acute Assessment and Plan: History of tobacco and marijuana use, will program counselor patient when he is extubated (7) Elevated troponin: Code(s): R77.8 - Other specified abnormalities of plasma proteins Status: Acute Assessment and Plan: Elevated troponin could be related to acute respiratory failure, shock, possible CAD -troponin was 1.510 --> 2.880 -->4.490 -EKG showed right bundle-branch block, no ST elevation
[2022-11-15] MEDS: CEFEPIME 2 GM/NS 50 ML 2 GM/50 ML BAG IVPB (08:37)
--- NOTE | 2022-11-15 09:17 | PM.PNCARD ---
Progress Note: A&P Assessment and Plan (1) Acute hypercapnic respiratory failure: Code(s): J96.02 - Acute respiratory failure with hypercapnia Status: Acute Assessment and Plan: Improved. Respiratory status is improving. He will continue to receive low pulse does IV furosemide throughout the day. Hopefully will not drop his blood pressure removed will be able to keep him off of Levophed. (2) Elevated troponin: Code(s): R77.8 - Other specified abnormalities of plasma proteins Status: Acute Assessment and Plan: Continue heparin times 24 more hours. Will repeat her troponin today. Also repeat EKG today. Aspirin 81 mg p.o. daily be started. Resume rosuvastatin 20 mg daily (3) Cardiomyopathy: Code(s): I42.9 - Cardiomyopathy, unspecified Status: Acute Assessment and Plan: 3. Mildly reduced left ventricular systolic function with post hypokinesia more than other segments. ? 4. Grade 1 diastolic noncompliance. ? 5. Sclerotic aortic valve which does not appear to be stenotic. ? 6. Calcified mitral valve annulus. EF 40 45%. When able, resume beta-neri and ARB. Continue statin. Subjective Date/time seen: 11/15/22 09:17 Interval history: Reason for consult: Acute hypercapnic/hypoxic respiratory failure altered mental status, CHF exacerbation, COPD exacerbation, pneumonia, NSTEMI Date of service 11/15/2022: Off the Levophed. Responsive and denies chest pain Review of Systems Review of Systems: All systems reviewed & are unremarkable except as noted in HPI and below Cardiovascular: Cardiovascular: Denies chest pain Exam Const: Other: Overweight white male appears to be with rather poor hygiene intubated on mechanical ventilator support ICU room 2. HENMT: Mouth: Yes moist mucous membranes Eyes: Sclera: sclerae normal Neck: Neck: supple Other: Very difficult to assess JVD given his thick neck carotid pulses appear to be intact bilaterally Resp: Other: Coarse rhonchorous breath sounds are noted throughout both lung neff Cardio: Rate: regular rate Rhythm: regular rhythm Other: PMI is not palpable there is a very soft systolic murmur that I do not hear radiating from the left sternal border somewhat difficult exam because of the loud breath sounds GI: Auscultation: normal bowel sounds Neuro: Sensory Exam: normal sensation Extrem: Other: Cannot appreciate any distal lower extremity pulses obvious changes of chronic venous insufficiency bilaterally brawny edema Objective Data Vital Signs Vital Signs: Vital Signs - 24 hr 11/14/22 09:59 11/14/22 10:41 11/14/22 10:38 Temperature Pulse Rate 65 71 71 Respiratory Rate 24 H 24 H Blood Pressure Pulse Oximetry 100 Oxygen Delivery Mechanical Ventilation Fraction of Inspired Oxygen 50 11/14/22 11:36 11/14/22 10:00 11/14/22 10:00 Temperature 36.8 C Pulse Rate 70 65 65 Respiratory Rate 24 H 24 H Blood Pressure 105/54 L Pulse Oximetry 95 100 Oxygen Delivery Mechanical Ventilation Fraction of Inspired Oxygen 40 11/14/22 09:30 11/14/22 10:00 11/14/22 10:15 Temperature Pulse Rate 67 65 64 Respiratory Rate Blood Pressure 111/53 L 105/54 L 115/58 L Pulse Oximetry Oxygen Delivery Fraction of Inspired Oxygen 11/14/22 10:30 11/14/22 10:45 11/14/22 11:00 Temperature Pulse Rate 70 71 72 Respiratory Rate Blood Pressure 122/82 130/63 134/65 Pulse Oximetry Oxygen Delivery Fraction of Inspired Oxygen 11/14/22 13:25 11/14/22 13:25 11/14/22 12:00 Temperature Pulse Rate 76 76 71 Respiratory Rate 24 H Blood Pressure Pulse Oximetry 96 Oxygen Delivery Mechanical Ventilation Fraction of Inspired Oxygen 40 11/14/22 12:00 11/14/22 09:22 11/14/22 09:22 Temperature 37.0 C 36.7 C Pulse Rate 71 73 73 Respiratory Rate 24 H 24 H Blood Pressure 110/54 L 132/61 Pulse Oximetry 95 99 Oxyge
--- NOTE | 2022-11-15 09:23 | ECG_ITS ---
Measurements Intervals [place] Rate: 94 P: 10 [place]: 132 QRS: 60 QRSD: 154 T: 38 QT: 395 QTc: 494 Interpretive Statements SINUS RHYTHM RIGHT BUNDLE BRANCH BLOCK ANTERIOR INFARCT, AGE INDETERMINATE ABNORMAL ECG COMPARED TO ECG 11/14/2022 03:17:46 MYOCARDIAL INFARCT FINDING NOW PRESENT Electronically Signed On 11-15-2022 17:47:44 CDT by Bandar Ellsworth D.O.
[2022-11-15 09:39] LABS: Reflex Lactic Acid Yes or No Add Lactic
--- NOTE | 2022-11-15 10:26 | PM.IMPN ---
Progress Note: A&P Assessment and Plan (1) Shock: Code(s): R57.9 - Shock, unspecified Status: Acute Assessment and Plan: Patient presented with hypotension, shortness of breath and decreased responsiveness was started in the ER. Remained hypotensive despite 3 L of IV fluid bolus, right femoral central line was inserted in the ED and started on Levophed -source could be hypovolemia, septic versus cardiogenic shock, CHF exacerbation, pneumonia -continue vancomycin and doxycycline (11/14) and cefepime (11/15), monitor cultures (2) Acute hypercapnic respiratory failure: Code(s): J96.02 - Acute respiratory failure with hypercapnia Status: Acute Assessment and Plan: continue supportive care in the ICU. Manage per ICU (3) COPD (chronic obstructive pulmonary disease): Code(s): J44.9 - Chronic obstructive pulmonary disease, unspecified Status: Acute Assessment and Plan: Patient with history of COPD, on bronchodilators continue mechanical ventilation. Manage per ICU (4) CHF (congestive heart failure): Qualifiers: Heart failure chronicity: unspecified Heart failure type: unspecified Qualified Code(s): I50.9 - Heart failure, unspecified Code(s): I50.9 - Heart failure, unspecified Status: Acute Assessment and Plan: CT PE protocol and Chest x-ray shows bilateral pulmonary edema, no PE -will hold IV fluids continue antibiotics and Lasix as needed (5) Elevated glucose: Code(s): R73.09 - Other abnormal glucose Status: Acute Assessment and Plan: Elevated blood sugars, -continue Accu-Cheks and sliding scale insulin (6) Tobacco abuse: Code(s): Z72.0 - Tobacco use Status: Acute Assessment and Plan: History of tobacco and marijuana use, will pastoral counselor patient when he is extubated (7) Elevated troponin: Code(s): R77.8 - Other specified abnormalities of plasma proteins Status: Acute Assessment and Plan: -cardiology following (8) Altered mental status: Code(s): R41.82 - Altered mental status, unspecified Status: Acute Assessment and Plan: Altered mental status likely related to hypercapnic respiratory failure, CHF exacerbation, hypoxia -currently intubated and sedated Subjective Date/time seen: 11/15/22 10:26 Interval history: intubated Exam Narrative: General: Patient is intubated and sedated, no acute distress HEENT:? Pupils equal and reactive, sclera is clear, ETT in place Neck:? Some will Respiratory:? Coarse breath sounds bilaterally R > L, decreased at bases, no wheezing this morning Cardiac:? S1-S2 normal, regular rate and rhythm Abdomen:? Soft, nontender, nondistended, hypoactive bowel sounds Extremities:? Bilateral lower extremity pitting edema from the knee to the feet bilaterally, Neuro:? Patient is intubated, sedated, patient opens his eyes, nods to questions and follows simple commands in all extremities Skin:? Chronic venous stasis changes on lower extremities bilaterally Psych:? Unable to assess at this time Objective Data Vital Signs Vital Signs: Vital Signs - 24 hr 11/14/22 10:41 11/14/22 10:38 11/14/22 11:36 Temperature Pulse Rate 71 71 70 Respiratory Rate 24 H 24 H Blood Pressure Pulse Oximetry 100 95 Oxygen Delivery Mechanical Ventilation Mechanical Ventilation Fraction of Inspired Oxygen 50 40 11/14/22 10:30 11/14/22 10:45 11/14/22 11:00 Temperature Pulse Rate 70 71 72 Respiratory Rate Blood Pressure 122/82 130/63 134/65 Pulse Oximetry Oxygen Delivery Fraction of Inspired Oxygen 11/14/22 13:25 11/14/22 13:25 11/14/22 12:00 Temperature Pulse Rate 76 76 71 Respiratory Rate 24 H Blood Pressure Pulse Oximetry 96 Oxygen Delivery Mechanical Ventilation Fraction of Inspired Oxygen 40 11/14/22 12:00 11/14/22 13:45 11/14/22 12:00 Temperature 98.6 F Pulse Ra
[2022-11-15 11:43] LABS: Glucose Point of Care 218 mg/dl (65-105)
[2022-11-15 13:00] LABS: Partial Thromboplastin Time 126.6 SECONDS (22.3-36.8)
[2022-11-15 13:04] LABS: Lactic Acid 2.4 mmol/L (0.7-2.0)
[2022-11-15] MEDS: MIDAZOLAM 100MG/NS 100ML(*CRX) 100 MG/100 ML BAG IV CONT (14:19)
[2022-11-15] MEDS: FENTANYL 2,500MCG/NS250ML(*CRX 2,500 MCG/250 ML BAG 10 MCG IV CONT (14:23)
--- NOTE | 2022-11-15 14:42 | PC.NURSE ---
Spoke with [facility] transfer center. Gave patient information, stated will call back with updates.
[2022-11-15 15:25] LABS: Hematocrit 37.6 % (42.0-52.0); Hemoglobin 12.4 g/dL (14.0-18.0); Mean Platelet Volume 9.2 fl (7.4-10.4); Platelet Count Result 160 k/mm3 (150-375); Red Blood Count 4.13 M/mm3 (4.6-6.20); Red Cell Distribution Width 14.8 % (11.5-14.5); White Blood Count 20.1 K/mm3 (4.5-10.0)
[2022-11-15 15:37] LABS: Prothrombin Time 13.4 Seconds (11.1-14.7)
[2022-11-15 15:38] LABS: Partial Thromboplastin Time 31.4 SECONDS (22.3-36.8)
[2022-11-15 15:41] LABS: Magnesium 2.1 mg/dL (1.6-2.3)
[2022-11-15 15:43] LABS: Fibrinogen 317 mg/dl (215-510)
[2022-11-15 15:46] LABS: Vancomycin Trough 12.7 ug/mL (10.0-20.0)
[2022-11-15 15:48] LABS: D Dimer 0.75 ug/mL (<0.48)
--- NOTE | 2022-11-15 16:15 | PC.NURSE ---
Patient accepted to [facility] by Dr. Garcia, Transfer Agent. Will transfer for ENT evaluation of left ear canal bleeding. Report given to Katie ROBBINS. Consent for transfer obtained per Barbara, patient's spouse.
[2022-11-15] MEDS: ROSUVASTATIN 10 MG TABLET 20 MG PO (17:10)
--- NOTE | 2022-11-15 19:22 | PC.NURSE ---
Patient transferred to [facility] per [facility]. Fentanyl and Versed intake documented. Meds and pumps sent with patient for sedation en rout.
--- NOTE | 2022-11-26 07:36 | PM.TDS ---
Transfer Discharge Sum: Prov Provider Date of admission: 11/14/22 06:34 Primary care physician: Kalyan Soto MD Admitting clinician: Volodymyr Baires MD Consults: 11/14/22 06:35 Consult to Physician Routine Comment: Consulting Provider: Colt Somers Reason for consultation: Respiratory failure Has provider been notified: Yes 11/14/22 12:41 Consult to Physician Routine Comment: spoke w exchange @ 1320 (, ) Consulting Provider: Avinash Crouch call center supervisor/MD group to consult: Cardiology Reason for consultation: NSTEMI Has provider been notified: Yes 11/15/22 13:53 Consult to Physician Routine Comment: Consulting Provider: call center supervisor/MD group to consult: ENT Reason for consultation: Bleeding from left ear Has provider been notified: No DS: Admitting Diagnosis Discharge Date 11/15/22 Admitting Diagnosis Admitted for shock, stabilized and transferred to outside tertiary hospital. DS: Discharge Diagnosis Discharge Diagnosis (1) Shock: Code(s): R57.9 - Shock, unspecified Status: Acute Assessment and Plan: Patient presented with hypotension, shortness of breath and decreased responsiveness was started in the ER. Remained hypotensive despite 3 L of IV fluid bolus, right femoral central line was inserted in the ED and started on Levophed -source could be hypovolemia, septic versus cardiogenic shock, CHF exacerbation, pneumonia -continue vancomycin and doxycycline (11/14) and cefepime (11/15), monitor cultures (2) Acute hypercapnic respiratory failure: Code(s): J96.02 - Acute respiratory failure with hypercapnia Status: Acute Assessment and Plan: continue supportive care in the ICU. Manage per ICU (3) COPD (chronic obstructive pulmonary disease): Code(s): J44.9 - Chronic obstructive pulmonary disease, unspecified Status: Acute Assessment and Plan: Patient with history of COPD, on bronchodilators continue mechanical ventilation. Manage per ICU (4) CHF (congestive heart failure): Qualifiers: Heart failure chronicity: unspecified Heart failure type: unspecified Qualified Code(s): I50.9 - Heart failure, unspecified Code(s): I50.9 - Heart failure, unspecified Status: Acute Assessment and Plan: CT PE protocol and Chest x-ray shows bilateral pulmonary edema, no PE -will hold IV fluids continue antibiotics and Lasix as needed (5) Elevated glucose: Code(s): R73.09 - Other abnormal glucose Status: Acute Assessment and Plan: Elevated blood sugars, -continue Accu-Cheks and sliding scale insulin (6) Tobacco abuse: Code(s): Z72.0 - Tobacco use Status: Acute Assessment and Plan: History of tobacco and marijuana use, will funeral counselor patient when he is extubated (7) Elevated troponin: Code(s): R77.8 - Other specified abnormalities of plasma proteins Status: Acute Assessment and Plan: -cardiology following (8) Altered mental status: Code(s): R41.82 - Altered mental status, unspecified Status: Acute Assessment and Plan: Altered mental status likely related to hypercapnic respiratory failure, CHF exacerbation, hypoxia -currently intubated and sedated Transfer Discharge Sum: Med Medications Active and Home Medications: Home Medications aspirin 81 mg tablet 162 mg PO DAILY 10/02/21 [History Confirmed 11/14/22] diltiazem HCl 120 mg capsule,extended release 24 hr, controlled (DILT-XR) 120 mg PO DAILY 10/02/21 [History Confirmed 11/14/22] furosemide 20 mg tablet (Lasix) 40 mg PO BID 10/02/21 [History Confirmed 11/14/22] rosuvastatin 20 mg tablet 20 mg PO QPM 10/02/21 [History Confirmed 11/14/22] metoprolol succinate 50 mg tablet,extended release 24 hr 150 mg PO DAILY #270 tabs 06/30/22 [Rx Confirmed 11/14/22] ropinirole 0.5 mg tablet 0.5 mg PO QHS #30 tabs 09/30/22 [Rx Confirmed 11/14/22] albuterol phillips
== END 2022-11-15 19:26 | disposition short-term general hospital (02) | DRG 871 ==
LOC: ANHED 06:03 → ANHICU 07:27
PROVIDERS: Internal Medicine; Internal Medicine Cardiovascular Disease; Admitting Provider Internal Medicine; Emergency Provider Emergency Medicine; PCP Family Medicine; Visit Provider Chiropractor
DX: A41.9 Sepsis, unspecified organism (principal); J96.02 Acute respiratory failure with hypercapnia; R65.21 Severe sepsis with septic shock; I50.32 Chronic diastolic (congestive) heart failure; I43 Cardiomyopathy in diseases classified elsewhere; E66.9 Obesity, unspecified; E78.5 Hyperlipidemia, unspecified; F41.9 Anxiety disorder, unspecified; F43.10 Post-traumatic stress disorder, unspecified; F17.210 Nicotine dependence, cigarettes, uncomplicated; G25.81 Restless legs syndrome; I11.0 Hypertensive heart disease with heart failure; I45.10 Unspecified right bundle-branch block; J43.9 Emphysema, unspecified; R73.09 Other abnormal glucose; R77.8 Other specified abnormalities of plasma proteins; Z68.35 Body mass index [BMI] 35.0-35.9, adult; Z20.822 Contact with and (suspected) exposure to COVID-19; Z79.82 Long term (current) use of aspirin
CPT/HCPCS: 31500; 36415; 36556; 36600; 51702; 70450; 71045; 71275; 74177; 80053; 80202; 80307; 81001; 82375; 82805; 82948; 83050; 83605; 83735; 83880; 84100; 84145; 84478; 84484; 85025; 85027; 85380; 85384; 85610; 85730; 87040; 87070; 87081; 87205; 87637; 93005; 94640; 96365; 96367; 96375; 99291; A9270; C8929; C9113; J0330; J0692; J0696; J1644; J1650; J1815; J1940; J2250; J2543; J2704; J2920; J2930; J3010; J3370; J7030; P9047; Q9957; Q9967

== ENCOUNTER 2022-12-08 14:05 | Emergency (ER) | payer OTHER, MEDICARE, SELFPAY ==
--- NOTE | ~2022-12-08 | XR_ITS ---
EXAMINATION: XR chest 1V portable INDICATION: Cough, COVID 19 positive TECHNIQUE: Portable AP chest at 1423 hours COMPARISON: 11/15/2022 FINDINGS: The endotracheal and nasogastric tubes have been removed. Diffuse lung disease has largely resolved. There are minimal airspace opacities of the lung bases. No pleural effusion or pneumothorax . The cardiomediastinal silhouette is stable. IMPRESSION: 1. Significant interval improvement in diffuse lung disease. Interval bibasilar airspace opacities li marry reflect atelectasis versus pneumonia. Reviewed, dictated and finalized at location A. IMPRESSION: 1. Significant interval improvement in diffuse lung disease. Interval bibasilar airspace opacities likely reflect atelectasis versus pneumonia.
[2022-12-08 14:02] VITALS: BP 115/56; PULSE 84; RESP 22; TEMP 37.4; O2SAT 100
--- NOTE | 2022-12-08 14:10 | ECG_ITS ---
Measurements Intervals [place] Rate: 85 P: [place]: 175 QRS: 261 QRSD: 130 T: 72 QT: 413 QTc: 493 Interpretive Statements SINUS RHYTHM BASELINE ARTIFACT RIGHT AXIS DEVIATION RIGHT BUNDLE BRANCH BLOCK ABNORMAL ECG COMPARED TO ECG 11/15/2022 13:01:06 NO SIGNIFICANT CHANGES Electronically Signed On 12-08-2022 17:16:01 CDT by Navjot Fields M.D.
[2022-12-08 14:47] LABS: Basophils Percent Auto 0.2 % (0.2-1.2); Eosinophils Percent Auto 0.7 % (0-4.4); Hematocrit 33.6 % (42.0-52.0); Hemoglobin 11.3 g/dL (14.0-18.0); Immature Granulocyte Absolute 0.02 K/mm3 (0.00-0.031); Immature Granulocyte Percent A 0.5 % (0-0.5); Lymphocytes Absolute Auto 0.75 K/mm3 (0.9-3.2); Lymphocytes Percent Auto 17.5 % (18.3-44.2); Mean Corpuscular HGB Conc 33.6 g/dl (32-36); Mean Corpuscular Hemoglobin 30.6 pg (26-34); Mean Corpuscular Volume 91.1 fl (80-100); Mean Platelet Volume 10.4 fl (7.4-10.4); Monocytes Absolute Auto 0.5 K/mm3 (0.1-0.6); Monocytes Percent Auto 10.5 % (2.6-8.5); Neutrophils Percent Auto 70.6 % (45.5-73.1); Platelet Count Result 105 k/mm3 (150-375); Red Blood Count 3.69 M/mm3 (4.6-6.20); Red Cell Distribution Width 16.5 % (11.5-14.5); White Blood Count 4.3 K/mm3 (4.5-10.0)
[2022-12-08 14:58] VITALS: O2SAT 100
[2022-12-08 14:58] LABS: Alanine Aminotransferase 58 U/L (6-50); Albumin Level 3.9 g/dL (3.5-5.1); Alkaline Phosphatase 63 U/L (38-126); Anion Gap 6 mmol/L (8-16); Aspartate Amino Transferase 42 U/L (17-59); Bilirubin,Total 1.1 mg/dL (0.2-1.3); Blood Urea Nitrogen 35 mg/dL (9-20); Calcium 8.8 mg/dL (8.4-10.2); Carbon Dioxide 31 mmol/L (22-30); Chloride 98 mmol/L (98-107); Estimated CRCL calculation 72 ml/min; Estimated Glomerular Filt Rate > 60; Glucose 95 mg/dL (65-110); Potassium 3.9 mmol/L (3.4-5.0); Sodium 135 mmol/L (137-145)
[2022-12-08 15:05] LABS: Appearance Urine Turbid (Clear); Bacteria Urine 1+ /hpf; Bilirubin Urine Negative (Negative); Blood Urine 3+ (Negative); Color Urine Yellow (Yellow); Glucose Urine UA Negative (Negative); Ketones Urine Negative (Negative); Leukocyte Esterase Ur 3+ LEU/UL (Negative); Nitrate Urine Positive (Negative); Protein Urine 2+ mg/dL (Negative); RBC Urine >100 /hpf (0-2); Specific Grav Ur 1.021 (1.001-1.035); Squamous Epithelial Cell Urine None seen /hpf (Few); WBC Urine >100 /hpf; pH Urine 5.5 (5.0-9.0)
[2022-12-08 15:13] LABS: Add Urine Microscopic? YES
--- NOTE | 2022-12-08 15:35 | PC.NURSE ---
Pt pulled out IV and ripped off bread racker. Pt repositioned and reconnected.
[2022-12-08 15:36] VITALS: PULSE 86
[2022-12-08 15:46] VITALS: BP 121/52; PULSE 98; RESP 23; O2SAT 98
--- NOTE | 2022-12-08 16:35 | ED.WEAKNESS ---
HPI - Weakness General Chief complaint: Weakness Stated complaint: weakness Time Seen by Provider: 12/08/22 14:06 Source: EMS Mode of arrival: EMS History of Present Illness HPI Narrative: 72-year-old COPD, A-fib, CAD was sent from [facility] for weakness. Patient was admitted to the snf yesterday. As per the EMS patient was recently discharged from [facility] to snf for rehab. He was diagnosed with COVID yesterday. Upon arrival to the ER patient complains of marked weakness otherwise he denies any headache, chest pain or abdominal pain. MD Complaint: generalized weakness Onset (ago): day(s) (1) Duration: constant Location: generalized Severity: moderate Associated symptoms: denies other symptoms Related Data Home Medications Medication Instructions Recorded Confirmed aspirin 81 mg tablet 162 mg PO DAILY 10/02/21 11/14/22 diltiazem HCl 120 mg 120 mg PO DAILY 10/02/21 11/14/22 capsule,extended release 24 hr, controlled (DILT-XR) furosemide 20 mg tablet (Lasix) 40 mg PO BID 10/02/21 11/14/22 rosuvastatin 20 mg tablet 20 mg PO QPM 10/02/21 11/14/22 gabapentin 300 mg capsule 300 mg PO BID 11/14/22 11/14/22 gabapentin 300 mg capsule 600 mg PO HS 11/14/22 11/14/22 Allergies Allergy/AdvReac Type Severity Reaction Status Date / Time No Known Allergies Allergy Verified 12/08/22 15:38 Review of Systems Review of Systems: All systems reviewed & are unremarkable except as noted in HPI and below Constitutional: Constitutional: Reports no additional constitutional complaints Eyes: Eyes: Reports no additional eye complaints Cardiovascular: Cardiovascular: Reports no additional cardiovascular complaints Respiratory: Respiratory: Reports no additional respiratory complaints Gastrointestinal: Gastrointestinal: Reports no additional gastrointestinal complaints Musculoskeletal: Musculoskeletal: Reports no additional musculoskeletal complaints [facility] Past Medical History Medical History Anxiety BMI 34.0-34.9,adult Diastolic dysfunction Diverticulitis Essential hypertension Mixed hyperlipidemia Post-traumatic stress disorder, unspecified Restless leg syndrome Tobacco abuse Surgical History Surgical History History of cystoscopy History of exploratory laparotomy With adhesiolysis and splenic flexure takedown. Also previous enterotomy with removal of foreign body (presumed clove of garlic). History of open sigmoidectomy For diverticulitis. History of tonsillectomy Family History Family History Mother Hypertension Family history of diabetes mellitus in first degree relative Depression Family history of cataracts Family history of arthritis Family history of hearing loss Father Family history of malignant neoplasm Other Cerebrovascular accident Social History Social History Social History: Surrogate decision maker: Barbara Moser, . Code status: Full code. Smoking packs per day: 2 Smoking cigarettes per day: 40.0 Years smoked: 53 Smoking pack-years: 106.00 Smoking status: Current every day smoker Tobacco type: cigarettes Second hand tobacco smoke exposure: No Alcohol intake: former Substance use: current Substance use type: marijuana Last use: last smoked about a month ago Lack of Transportation: No Lack of Food: Never True Current Housing: I Have Housing Concerned About Future Housing: No Difficulty Paying Gas/Electric Bills: No Difficulty Paying for Meds: No Currently Unemployed: YES Education: High School Diploma/GED Difficulty w/ Childcare or Family Care: No Living arrangements: with family Occupation/Education: retired Additional occupation/education commen
[2022-12-08 17:32] VITALS: BP 106/25; PULSE 90; RESP 22; O2SAT 98
== END 2022-12-08 18:06 ==
PROVIDERS: Emergency Provider Family Medicine; PCP Family Medicine
DX: U07.1 COVID-19 (principal); R53.1 Weakness; I25.10 Atherosclerotic heart disease of native coronary artery without angina pectoris; I48.91 Unspecified atrial fibrillation; I10 Essential (primary) hypertension; E78.2 Mixed hyperlipidemia; G25.81 Restless legs syndrome; F17.210 Nicotine dependence, cigarettes, uncomplicated; Z90.49 Acquired absence of other specified parts of digestive tract; I45.10 Unspecified right bundle-branch block; R91.8 Other nonspecific abnormal finding of lung field
CPT/HCPCS: 36415; 71045; 80053; 81001; 85025; 87077; 87086; 87186; 93005; 99283

== ENCOUNTER 2023-04-14 12:18 | Outpatient (CLI) | payer MEDICARE, SELFPAY ==
--- NOTE | 2023-04-14 14:00 | NEURO_ITS ---
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 # Severe axonal motor and sensory neuropathy. # Needle/EMG exam revealed neurogenic changes in widespread muscles without fibrillation. Nerve Conduction Studies Anti Sensory Summary Table Stim Site NR Peak (ms) P-T Amp (?V) Site1 Site2 Delta-P (ms) Dist (cm) Noel (m/s) Left Sup Fibular Anti Sensory (Ant Lat Mall) NO RESPONSE 14 cm NR 14 cm Ant Lat Mall 16.0 Right Sup Fibular Anti Sensory (Ant Lat Mall) NO RESPONSE 14 cm NR 14 cm Ant Lat Mall 16.0 Left Sural Anti Sensory (Lat Mall) NO RESPONSE Calf NR Calf Lat Mall 16.0 Right Sural Anti Sensory (Lat Mall) NO RESPONSE Calf NR Calf Lat Mall 16.0 Motor Summary Table Stim Site NR Onset (ms) O-P Amp (mV) Site1 Site2 Delta-0 (ms) Dist (cm) Noel (m/s) Left Peroneal Motor (Vastus Med) Right Peroneal Motor (Vastus Med) Left Tibial Motor (Abd Gilbert Brev) NO RESPONSE Ankle NR Knee NR Right Tibial Motor (Abd Gilbert Brev) NO RESPONSE Ankle NR Knee NR F Wave Studies NR F-Lat (ms) L-R F-Lat (ms) Left Peroneal (Mrkrs) (EDB) NO RESPONSE NR Right Peroneal (Mrkrs) (EDB) DISPERSED RESPONSE NR Left Tibial (Mrkrs) (Abd Hallucis) NO RESPONSE NR Right Tibial (Mrkrs) (Abd Hallucis) NO RESPONSE NR EMG Side Muscle Nerve Root Ins Act Fibs Amp Dur Recrt Comment Right AntTibialis Dp Br Fibular L4-5 Nml Nml Decr >12ms Reduced Right Gastroc Tibial S1-2 Nml Nml Decr >12ms Reduced Right Fibularis Long Sup Br Fibular L5-S1 Nml Nml Decr >12ms Reduced Right Flex Dig Long Tibial L5-S2 Nml Nml Decr >12ms Reduced Right Ext Dig Brev Dp Br Fibular L5, S1 Nml Nml Decr >12ms Reduced Left AntTibialis Dp Br Fibular L4-5 Nml Nml Decr >12ms Reduced Left Gastroc Tibial S1-2 Nml Nml Decr >12ms Reduced Left Fibularis Long Sup Br Fibular L5-S1 Nml Nml Decr >12ms Reduced Left Flex Dig Long Tibial L5-S2 Nml Nml Decr >12ms Reduced Left Ext Dig Brev Dp Br Fibular L5, S1 Nml Nml Decr >12ms Reduced MTDD
== END 2023-04-14 12:19 | disposition home or self-care (01) ==
LOC: ANHNEURO 12:19
PROVIDERS: PCP Family Medicine; Visit Provider Physician Assistant Medical
DX: G25.81 Restless legs syndrome (principal); G62.9 Polyneuropathy, unspecified; E11.8 Type 2 diabetes mellitus with unspecified complications; Z79.4 Long term (current) use of insulin
CPT/HCPCS: 95886; 95910

== ENCOUNTER 2023-04-23 14:37 | Outpatient (NON) | payer MEDICARE, SELFPAY ==
[2023-04-23 21:44] LABS: Anion Gap 6 mmol/L (8-16); Blood Urea Nitrogen 27 mg/dL (9-20); Calcium 8.8 mg/dL (8.4-10.2); Carbon Dioxide 28 mmol/L (22-30); Chloride 104 mmol/L (98-107); Estimated Glomerular Filt Rate 54; Glucose 86 mg/dL (65-110); Potassium 4.2 mmol/L (3.4-5.0); Sodium 138 mmol/L (137-145)
== END 2023-04-23 14:38 | disposition home or self-care (01) ==
PROVIDERS: PCP Family Medicine; Visit Provider Physician Assistant Medical
DX: I25.5 Ischemic cardiomyopathy (principal); E11.22 Type 2 diabetes mellitus with diabetic chronic kidney disease; I13.0 Hypertensive heart and chronic kidney disease with heart failure and stage 1 through stage 4 chronic kidney disease, or unspecified chronic kidney disease; N18.2 Chronic kidney disease, stage 2 (mild)
CPT/HCPCS: 80048

== ENCOUNTER 2023-05-29 11:35 | Inpatient (IN) | payer MEDICARE, SELFPAY ==
[2023-05-29] VITALS (26 sets, daily range): BP systolic 63–113; BP diastolic 34–72; PULSE 87–115; RESP 12–27; TEMP 36.3–37.7; O2SAT 93–100; BMI 28.7
--- NOTE | ~2023-05-29 | XR_ITS ---
EXAMINATION: XR chest 1V portable DATE: 05/30/2023 09:05 INDICATION: Wheezing TECHNIQUE: frontal view of the chest was obtained. COMPARISON: Chest radiograph dated 05/29/2023 FINDINGS: Perivascular congestion. Increased perihilar interstitial pattern with bronchial wall thickening. No focal airspace opacities, pleural effusion or pneumothorax. Heart size is normal. Atherosclerotic cor onary artery calcifications and/or stenting. A few old right rib fractures. IMPRESSION: 1. Perihilar increased interstitial pattern with bronchial wall thickening which could be due to mild pulmonary edema, bronchitis or reactive airway disease/asthma. Reviewed, dictated and finalized at location A. W HAT MACHINE OPERATOR IMPRESSION: 1. Perihilar increased interstitial pattern with bronchial wall thickening whic h could be due to mild pulmonary edema, bronchitis or reactive airway disease/a sthma.
--- NOTE | ~2023-05-29 | MR_ITS ---
EXAMINATION: MR abdomen wo/w con INDICATION: Indeterminate right kidney masses TECHNIQUE: Coronal SSFSE ARC, WATER:coronal LAVA-FLEX, Coronal 2D FIESTA FatSat, Axial SSFSE BH ARC, Axial 3D DualEcho BH, Axial SSFSE-IR, Axial DWI b=500, Axial 2D FIESTA FatSat, pre and dynamic postco ntrast Axial LAVA ARC, postcontrast Coronal In and Opposed phase LAVA FLEX COMPARISON: CT, 05/29/2023 CONTRAST: Multihance, 16 cc FINDINGS: There are small pleural effusions, right greater than left. The heart size is normal. Hdez es of cholecystectomy are noted. Cysts of the liver measure up to 6 mm in the right hepatic lobe. The spleen, pancreas, and left adrenal gland are normal. There is a 2.9 cm mass of the right adrenal gla nd with loss of signal on opposed phase imaging, consistent with an adenoma. Simple cysts of the kidn eys measure up to 2 cm on the right. There are hemorrhagic cysts of the left kidney measuring 7 mm an d 12 mm. There are cortical-based masses of the right mid kidney measuring 8 mm and 11 mm which are T 2 hypointense. T1-weighted pre and postcontrast images are significantly limited by respiratory motio n artifact. No definite enhancement is identified. There are no pathologically enlarged abdominal lym ph nodes. A large volume of colonic stool is present. There are no dilated loops of bowel. The append ix is normal. IMPRESSION: 1. Probable simple and hemorrhagic cysts of the kidneys however respiratory motion artifact significa ntly limits evaluation. 2. Right adrenal adenoma. Reviewed, dictated and finalized at location B. CLEANING COOKING IMPRESSION: 1. Probable simple and hemorrhagic cysts of the kidneys however respiratory mot ion artifact significantly limits evaluation. 2. Right adrenal adenoma.
--- NOTE | ~2023-05-29 | XR_ITS ---
EXAMINATION: XR chest 1V DATE: 05/29/2023 12:48 INDICATION: Weakness. Cough. Falls. TECHNIQUE: A single frontal view of the chest was obtained. COMPARISON: Chest single view 12/08/2022, chest CT 11/14/2022 FINDINGS: There are airspace opacities in the lower lung zones. No pleural effusion or pneumothorax. The heart size is normal. There are old healed right rib fractures. IMPRESSION: 1. Airspace opacities in the lower lung zones, consistent with atelectasis versus pneumonia. Reviewed, dictated and finalized at location A. STRIPPER IMPRESSION: 1. Airspace opacities in the lower lung zones, consistent with atelectasis vers us pneumonia.
--- NOTE | ~2023-05-29 | CT_ITS ---
EXAMINATION: CT brain wo con DATE: 05/29/2023 12:40 INDICATION: Altered mental status. TECHNIQUE: Computed tomography (CT) of the head was performed without intravenous contrast. The dose- length product was 983.67 mGy-cm. Automated exposure control and iterative reconstruction technique w ere employed. COMPARISON: CT dated 11/15/2022 FINDINGS: There are large chronic infarctions of the frontal lobes, right parietal lobe, right tempor al lobe and a right occipital lobe. No ventriculomegaly or midline shift. Basilar cisterns are patent there is intracranial atherosclerosis. There is mucosal thickening of the left maxillary and ethmoid sinuses. Mastoids are pneumatized. No acute infarction or hemorrhage. There are scattered moderate p eriventricular and subcortical white matter changes, most likely related to small vessel ischemic dis ease (microangiopathy). IMPRESSION: 1. No acute intracranial abnormality. 2: Moderate sinusitis. 3: Multifocal large chronic infarctions bilaterally, unchanged. Reviewed, dictated and finalized at location B. D MARKETING TEAM LEADER
--- NOTE | ~2023-05-29 | XR_ITS ---
EXAMINATION: XR UGI w small bowel DATE: 06/03/2023 15:49 INDICATION: Gastrointestinal bleeding TECHNIQUE: The patient drank thick barium and thin barium. Conventional supine abdomen radiographs an d fluoroscopic spot radiographs of the esophagus, stomach, and proximal small bowel were obtained. Ad ditional overhead radiographs were obtained during the transit through the small bowel. Patient was u nable to bear any weight limiting the evaluation 2 imaging performed in the horizontal position. For this reason the effervescent crystals and double contrast portion of the examination was deferred. Sp ot fluoroscopic images of the small bowel were obtained upon contrast reaching the cecum. Fluoroscopy exposure time was 1.6 minutes. A total of 7 overhead radiographs in 1151 fluoroscopic images were re corded. COMPARISON: CT dated 05/29/2023 FINDINGS: The esophagus is normal without mass or stricture. Esophageal motility is normal. There is no hiatal hernia. Small amount of spontaneous gastroesophageal reflux was observed. The stomach and proximal sm all bowel are normal. Transit time from the stomach to proximal colon was approximately 2.5 hours. There is normal caliber and mucosal fold pattern throughout the small bowel. Terminal ileum appears normal. IMPRESSION: 1. Small amount of spontaneous gastroesophageal reflux without hiatal hernia. Otherwise normal upper GI and small bowel follow-through. Reviewed, dictated and finalized at location A. LE APPLICATION CONSULTANT IMPRESSION: 1. Small amount of spontaneous gastroesophageal reflux without hiatal hernia. O therwise normal upper GI and small bowel follow-through.
--- NOTE | ~2023-05-29 | CT_ITS ---
EXAMINATION: CT abdomen pelvis w con DATE: 05/29/2023 14:33 INDICATION: Drop in hemoglobin. TECHNIQUE: Computed tomography (CT) of the abdomen and pelvis was performed without intravenous contr ast. The dose-length product was 1288.80 mGy-cm. Automated exposure control and iterative reconstruction technique were employed. COMPARISON: CT dated 11/14/2022. FINDINGS: There is right lower lobe atelectasis. Heart size upper normal. No significant pleural or p ericardial effusion. There is 3.4 cm low-density mass of the right adrenal gland, most likely benign adenoma. There is an intermediate density heterogeneous appearing 1.3 cm exophytic right renal mass p osteriorly, suspicious for renal cell carcinoma. There is an intermediate density 1.3 cm left renal m ass medially. There are calcified granulomas of the spleen. There are gallstones. There are low small subcentimeter hypodensities of the liver, most likely benign. No free air or free fluid. Moderate di ffuse atherosclerosis without evidence for aneurysm. No evidence for hernia. No lymphadenopathy. Blad jacinto is unremarkable. No acute osseous abnormality. IMPRESSION: 1. No acute abdominal abnormality. 2: Low-density right adrenal mass, likely benign adenoma. 2: Intermediate density bilateral renal masses, suspicious for renal cell carcinoma. Correlation with MRI of the abdomen without and with contrast recommended. 4: Cholelithiasis. Reviewed, dictated and finalized at location B. SHED GOODS PLANNER IMPRESSION: 1. No acute abdominal abnormality. 2: Low-density right adrenal mass, likely benign adenoma. 2: Intermediate density bilateral renal masses, suspicious for renal cell carci noma. Correlation with MRI of the abdomen without and with contrast recommended . 4: Cholelithiasis.
--- NOTE | 2023-05-29 11:56 | ECG_ITS ---
Measurements Intervals [place] Rate: 91 P: 25 [place]: 161 QRS: 35 QRSD: 158 T: 1 QT: 448 QTc: 553 Interpretive Statements SINUS RHYTHM RIGHT BUNDLE BRANCH BLOCK ABNORMAL ECG COMPARED TO ECG 12/08/2022 14:16:25 NO DIFFERENCE Electronically Signed On 05-29-2023 13:37:27 BROOM STITCHER by Avinash Crouch M.D.
--- NOTE | 2023-05-29 12:05 | ED.WEAKNESS ---
HPI - Weakness General Chief complaint: Weakness Stated complaint: weak/poss UTI Time Seen by Provider: 05/29/23 12:02 Source: patient and family () History of Present Illness HPI Narrative: This is a 72 yo male who presents with weakness and concern for a UTI. provides history. She states he ambulates with a wheelchair lately secondary to his legs giving out frequently. He is reported to have restless legs. He takes gabapentin for this. She believes he had been on ropinerole at one point but not currently. By report, it sounds like he underwent an EMG a few months ago though unclear results. She is concerned because she states his mentation at baseline waxes and wanes. Related Data Home Medications Medication Instructions Recorded Confirmed aspirin 81 mg tablet 81 mg PO DAILY 10/02/21 05/29/23 apixaban 5 mg tablet (Eliquis) 5 mg PO BID 05/11/23 05/29/23 torsemide 20 mg tablet 20 mg PO QMWF 05/11/23 05/29/23 gabapentin 300 mg capsule 300 mg PO QAM 05/29/23 05/29/23 gabapentin 300 mg capsule 600 mg PO HS 05/29/23 05/29/23 metoprolol succinate 25 mg 12.5 mg PO DAILY 05/29/23 05/29/23 tablet,extended release 24 hr Allergies Allergy/AdvReac Type Severity Reaction Status Date / Time No Known Allergies Allergy Verified 05/11/23 14:24 [facility] Past Medical History Medical History Anxiety Ataxia Atrial fibrillation Diastolic dysfunction Diverticulitis Essential hypertension Ischemic cardiomyopathy Leg weakness, bilateral Mixed hyperlipidemia Post covid-19 condition, unspecified Post-traumatic stress disorder, unspecified Restless leg syndrome Tobacco abuse Surgical History Surgical History History of cystoscopy History of exploratory laparotomy With adhesiolysis and splenic flexure takedown. Also previous enterotomy with removal of foreign body (presumed clove of garlic). History of open sigmoidectomy For diverticulitis. History of tonsillectomy Family History Family History Mother Hypertension Family history of diabetes mellitus in first degree relative Depression Family history of cataracts Family history of arthritis Family history of hearing loss Father Family history of malignant neoplasm Other Cerebrovascular accident Social History Social History Social History: Surrogate decision maker: Barbara Moser, . Code status: Full code. Smoking packs per day: 1.5 Smoking cigarettes per day: 30.0 Years smoked: 55 Smoking pack-years: 82.50 Smoking status: Current every day smoker Tobacco type: cigarettes Second hand tobacco smoke exposure: Yes Smoking end date: 11/14/22 Additional smoking assessment comments: Patients at bedside states patient is currently smoking. 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 HEAD: Normocephalic, atraumatic. EYES: Anisicoria. ENT: Nares clear, no rhinorrhea or epistaxis. NECK: Supple. CHEST: No respiratory distress. HEART: Regular rate and rhythm. ABDOMEN: Soft, nontender EXTREMITIES: Frequently m
[2023-05-29 12:20] LABS: Appearance Urine Clear (Clear); Bacteria Urine 4+ /hpf; Bilirubin Urine Negative (Negative); Color Urine Yellow (Yellow); Glucose Urine UA 2+ mg/dL (Negative); Ketones Urine Negative (Negative); Leukocyte Esterase Ur 3+ LEU/UL (Negative); Nitrate Urine Negative (Negative); Protein Urine Negative (Negative); RBC Urine 0-2 /hpf (0-2); Specific Grav Ur 1.008 (1.001-1.035); Squamous Epithelial Cell Urine None seen /hpf (Few); Urobilinogen Urine 0.2 mg/dL (<2.0); WBC Urine >100 /hpf; pH Urine 5.5 (5.0-9.0)
[2023-05-29 12:34] LABS: Add Urine Microscopic? YES
[2023-05-29 13:10] LABS: Basophils Percent Auto 0.3 % (0.2-1.2); Eosinophils Absolute Auto 0.1 K/mm3 (0-0.3); Eosinophils Percent Auto 0.7 % (0-4.4); Hematocrit 22.9 % (42.0-52.0); Immature Granulocyte Absolute 0.06 K/mm3 (0.00-0.031); Immature Granulocyte Percent A 0.5 % (0-0.5); Lymphocytes Absolute Auto 1.33 K/mm3 (0.9-3.2); Mean Corpuscular HGB Conc 27.9 g/dl (32-36); Mean Corpuscular Hemoglobin 25.2 pg (26-34); Mean Corpuscular Volume 90.2 fl (80-100); Mean Platelet Volume 9.3 fl (7.4-10.4); Monocytes Percent Auto 8.1 % (2.6-8.5); Neutrophils Absolute Auto 9.6 K/mm3 (1.3-6.7); Neutrophils Percent Auto 79.4 % (45.5-73.1); Platelet Count Result 242 k/mm3 (150-375); Red Blood Count 2.54 M/mm3 (4.6-6.20); Red Cell Distribution Width 18.4 % (11.5-14.5); White Blood Count 12.1 K/mm3 (4.5-10.0)
[2023-05-29 13:22] LABS: INR 1.4; Prothrombin Time 17.7 Seconds (11.1-14.7)
[2023-05-29 13:23] LABS: Partial Thromboplastin Time 31.8 SECONDS (22.3-36.8)
[2023-05-29 13:27] LABS: Lactic Acid Reflex 1.8 mmol/L (0.7-2.0)
[2023-05-29 13:27] LABS: Alanine Aminotransferase 16 U/L (6-50); Alkaline Phosphatase 72 U/L (38-126); Anion Gap 11 mmol/L (8-16); Aspartate Amino Transferase 22 U/L (17-59); Bilirubin,Total 0.5 mg/dL (0.2-1.3); Blood Urea Nitrogen 31 mg/dL (9-20); Calcium 9.1 mg/dL (8.4-10.2); Carbon Dioxide 26 mmol/L (22-30); Chloride 105 mmol/L (98-107); Estimated CRCL calculation 59 ml/min; Estimated Glomerular Filt Rate 59; Glucose 113 mg/dL (65-110); Potassium 3.8 mmol/L (3.4-5.0); Sodium 142 mmol/L (137-145)
[2023-05-29 13:40] LABS: Hemoglobin 6.4 g/dL (14.0-18.0)
--- NOTE | 2023-05-29 14:00 | PC.NURSE ---
Pt and report he has restless leg syndrome, pt kicking all over bed, throwing arms up. Pt is A/O x 4 at this time but dozes off easily
[2023-05-29] MEDS: LORazepam INJ (*CRX) 2 MG/ML VIAL 0.5 MG IV PUSH (14:18)
[2023-05-29] MEDS: SODIUM CHLORIDE 0.9% IV 1,000 ML 999 ML IV CONT (14:19)
--- NOTE | 2023-05-29 14:20 | PC.NURSE ---
ativan given for RLS for abd CT
--- NOTE | 2023-05-29 15:30 | PC.NURSE ---
Pt thrashing on bed pulling at monitor cord and pulled SLN out. linens changed and pt repositioned but continues to throw arms up and down and constantly moving BLE. Pt not answering questions at this time or following directions. Unsure if this is new symptom or due to ativan. ERP notified.
[2023-05-29 15:55] LABS: Hematocrit 21.5 % (42.0-52.0)
--- NOTE | 2023-05-29 16:00 | PC.NURSE ---
Hospitalist Cassandra at bedside, bedside hemoccult checked and positive for blood
--- NOTE | 2023-05-29 16:00 | PC.NURSE ---
BUE soft restraints applied because pt continues to thrash around and will not follow directions. ERP entered order and initial restraint assessment completed
--- NOTE | 2023-05-29 16:10 | PC.NURSE ---
lower dentures removed from mouth and placed in denture container labeled with name. Container at bedside on steel procedure tray
[2023-05-29 16:17] LABS: Hemoglobin 6.1 g/dL (14.0-18.0)
--- NOTE | 2023-05-29 16:21 | PM.IMHP ---
H&P: HPI History of Present Illness Date/Time: 05/29/23 16:21 Chief Complaint: Weakness Narrative: 72 y/o M presents here with generalized weakness and falls with PMH of DM, COPD, diastolic dysfunction, HLD, Afib, diverticulitis, ischemic cardiomyopathy, and RLS. HPI obtained through chart review. Patient presented to the ED from home for generalized weakness and falls. Patient was recently discharged from [facility] to home with home health services from 04/15-04/29 per chart review. Per PCP note on 05/11, patient was recently in the hospital for approximately 1 month. Unclear why patient had extended admission or at which facility, last admission here on 11/14-11/26 where he was admitted for septic shock, intubated due to pneumonia and respiratory failure in the setting of COPD. Also found to be in acute systolic heart failure, cardiogenic shock, and NSTEMI - transferred to [facility] for high risk Impella. Patient was discharged to [facility] after that admission, unclear if this is the admission referenced by patient's and PCP. Per 's report patient's legs have been giving out for awhile resulting in multiple falls and he has become increasingly weak. She also reports intermittent altered mental status at baseline. Arrived to ED A/Ox4, restless but somnolent. ED workup revealed hgb 6.1, WBC 12.1, and a UA suspicious for UTI. CT head showed chronic infarcts, unchanged. CXR consistent with atelectasis v. pna in lower lung zones. CT abd/pelvis showed intermediate bilateral renal masses and cholelithiasis, otherwise no acute abdominal abnormality. Unable to question patient on absence or presence of dark/tarry stools or bright red blood in stools, however +occult without BRB on exam. Currently on Eliquis. Review of Systems Review of Systems: All systems reviewed & are unremarkable except as noted in HPI and below [facility] Past Medical History Medical History (Updated 05/29/23 @ 21:51 by Cassandra Breaux APRN) Anxiety Ataxia Atrial fibrillation Diastolic dysfunction Diverticulitis Essential hypertension Ischemic cardiomyopathy Leg weakness, bilateral Mixed hyperlipidemia Post covid-19 condition, unspecified Post-traumatic stress disorder, unspecified Restless leg syndrome Tobacco abuse Surgical History Surgical History History of cystoscopy History of exploratory laparotomy With adhesiolysis and splenic flexure takedown. Also previous enterotomy with removal of foreign body (presumed clove of garlic). History of open sigmoidectomy For diverticulitis. History of tonsillectomy Family History Family History Mother Hypertension Family history of diabetes mellitus in first degree relative Depression Family history of cataracts Family history of arthritis Family history of hearing loss Father Family history of malignant neoplasm Other Cerebrovascular accident Social History Social History Social History: Surrogate decision maker: Barbara Moser, . Code status: Full code. Smoking packs per day: 1 Smoking cigarettes per day: 20.0 Years smoked: 53 Smoking pack-years: 53.00 Smoking status: Former smoker Tobacco type: cigarettes Second hand tobacco smoke exposure: Yes Smoking end date: 11/14/22 Alcohol intake: former Substance use: current Substance use type: marijuana Last use: last smoked about a month ago Lack of Transportation: No Lack of Food: Never True Current Housing: I Have Housing Concerned About Future Housing: No Difficulty Paying Gas/Electric Bills: No Difficulty Paying for Meds: No Currently Unemployed: YES Education: High School Diploma/GED Difficulty w/ Childcare or Family Care: No Living arrangements: with family Occupation/Education: retired Additional occup
[2023-05-29 16:32] LABS: Iron 32 ug/dL (49-181)
[2023-05-29 16:41] LABS: Percent Iron Saturation 9 % (20-50)
[2023-05-29] MEDS: TUBING, BLOOD SET 1 EACH XX (17:12)
[2023-05-29] MEDS: SODIUM CHLORIDE 0.9% IV 250 ML 30 ML IV CONT ×2 (17:12→21:00)
--- NOTE | 2023-05-29 20:05 | ADMGEN ---
This patient, Rolando Moser, was admitted to Intensive Care Unit-3. @2000 Patient/family oriented to hospital policies and general routines including ID bracelet, bed and alarms, visiting hours, pain management, procedures, bathroom and other care routines, personal items, smoking policy, room service/diet, and visiting hours. Information on how to activate the Rapid Response Team has been discussed. Patient/Family are encouraged to report perceived risks to care and to ask questions if they do not understand what they are told or what they should do.
--- NOTE | 2023-05-29 20:32 | ADMGEN ---
This patient, Rolando Moser, was admitted to Intensive Care Unit-3. Patient/family oriented to hospital policies and general routines including ID bracelet, bed and alarms, visiting hours, pain management, procedures, bathroom and other care routines, personal items, smoking policy, room service/diet, and visiting hours. Information on how to activate the Rapid Response Team has been discussed. Patient/Family are encouraged to report perceived risks to care and to ask questions if they do not understand what they are told or what they should do.
[2023-05-29 21:20] LABS: Hematocrit 24.6 % (42.0-52.0); Hemoglobin 7.1 g/dL (14.0-18.0); Mean Corpuscular HGB Conc 28.9 g/dl (32-36); Mean Corpuscular Hemoglobin 26.5 pg (26-34); Mean Corpuscular Volume 91.8 fl (80-100); Mean Platelet Volume 9.5 fl (7.4-10.4); Platelet Count Result 227 k/mm3 (150-375); Red Blood Count 2.68 M/mm3 (4.6-6.20); Red Cell Distribution Width 17.4 % (11.5-14.5)
[2023-05-29] MEDS: PANTOPRAZOLE SODIUM IV 40 MG VIAL IV PUSH (22:36)
[2023-05-29] MEDS: CEFEPIME 2 GM/NS 50 ML 2 GM/50 ML BAG IVPB (22:36)
[2023-05-29] MEDS: FUROSEMIDE INJ 40 MG/4 ML VIAL IV PUSH (22:44)
--- NOTE | 2023-05-29 23:13 | PC.NURSE ---
2100 Called to complete admit and review med list. Received telephone consent for central line. 2nd verification witnessed by Jayda Sue RN.
[2023-05-30] VITALS (19 sets, daily range): BP systolic 92–162; BP diastolic 46–76; PULSE 49–109; RESP 20–105; TEMP 36.4–37.5; O2SAT 90–100
[2023-05-30] MEDS: VANCOMYCIN 1,250 MG/NS 250 ML 1,250 MG/250 ML BAG 166.67 MG IVPB ×2 (00:06)
[2023-05-30 01:00] LABS: Influenza A QL RT-PCR Negative (Negative); Influenza B QL RT-PCR Negative (Negative); RSV RNA, RT-PCR Negative (Negative); SARS-CoV-2 RNA PCR Negative (Negative)
[2023-05-30 01:35] LABS: MRSA (PCR) NOT DETECTED (NOT DETECTE)
[2023-05-30 04:26] LABS: Basophils Absolute Auto 0.1 K/mm3 (0.0-0.1); Basophils Percent Auto 0.5 % (0.2-1.2); Eosinophils Absolute Auto 0.2 K/mm3 (0-0.3); Eosinophils Percent Auto 1.7 % (0-4.4); Hematocrit 26.2 % (42.0-52.0); Hemoglobin 7.6 g/dL (14.0-18.0); Immature Granulocyte Absolute 0.05 K/mm3 (0.00-0.031); Immature Granulocyte Percent A 0.4 % (0-0.5); Lymphocytes Absolute Auto 1.18 K/mm3 (0.9-3.2); Lymphocytes Percent Auto 10.6 % (18.3-44.2); Mean Corpuscular Hemoglobin 25.9 pg (26-34); Mean Corpuscular Volume 89.1 fl (80-100); Mean Platelet Volume 9.4 fl (7.4-10.4); Monocytes Percent Auto 8.5 % (2.6-8.5); Neutrophils Absolute Auto 8.7 K/mm3 (1.3-6.7); Neutrophils Percent Auto 78.3 % (45.5-73.1); Platelet Count Result 204 k/mm3 (150-375); Red Blood Count 2.94 M/mm3 (4.6-6.20); Red Cell Distribution Width 17.8 % (11.5-14.5); White Blood Count 11.2 K/mm3 (4.5-10.0)
[2023-05-30 04:39] LABS: Alanine Aminotransferase 16 U/L (6-50); Albumin Level 3.4 g/dL (3.5-5.1); Alkaline Phosphatase 75 U/L (38-126); Anion Gap 9 mmol/L (8-16); Aspartate Amino Transferase 27 U/L (17-59); Bilirubin,Total 0.8 mg/dL (0.2-1.3); Blood Urea Nitrogen 23 mg/dL (9-20); Calcium 8.5 mg/dL (8.4-10.2); Carbon Dioxide 25 mmol/L (22-30); Chloride 108 mmol/L (98-107); Estimated CRCL calculation 55 ml/min; Estimated Glomerular Filt Rate > 60; Glucose 95 mg/dL (65-110); Lactic Acid Reflex 1.3 mmol/L (0.7-2.0); Phosphorus 3.6 mg/dL (2.5-4.5); Potassium 3.3 mmol/L (3.4-5.0); Sodium 142 mmol/L (137-145)
[2023-05-30 04:51] LABS: Platelet Estimate Adequate (Adequate)
[2023-05-30 04:52] LABS: Anisocytosis 1+ (NORMAL); Polychromasia 1+ (NORMAL); Schistocytes Rare (NORMAL)
[2023-05-30 05:44] LABS: Folic Acid 17.3 ng/mL (2.76->20)
--- NOTE | 2023-05-30 08:27 | WPDCNINT ---
Assessment and Plan Assessment and plan (1) Sepsis: Qualifiers: Sepsis acute organ dysfunction status: unspecified Sepsis type: sepsis due to unspecified organism Qualified Code(s): A41.9 - Sepsis, unspecified organism Code(s): A41.9 - Sepsis, unspecified organism Status: Acute Assessment and Plan: Patient presented with sepsis with tachycardia, leukocytosis, borderline blood pressures, severe anemia -source UTI, also could be related to acute/chronic blood loss -patient received 30 mL/kg IV fluid bolus in the ER -2 units of packed RBCs since admission -blood pressures have been stable -patient not requiring any pressors -05/29 blood cultures: Obtained and Pending -05/29 urine cultures: Obtained and Pending -patient started on cefepime and vancomycin (05/29) (2) UTI (urinary tract infection): Code(s): N39.0 - Urinary tract infection, site not specified Status: Acute Assessment and Plan: Continue antibiotics as above, cultures have been obtained and pending (3) Anemia: Code(s): D64.9 - Anemia, unspecified Status: Acute Assessment and Plan: Severe anemia which could be a source of his generalized weakness and falls -patient has history of AFib and on Eliquis. Patient also on clopidogrel at home -will hold Eliquis and clopidogrel for now -05/29: Received 2 units of packed RBCs -GI has been consulted -Protonix IV q.12 hours -stool occult was positive in the ER (4) Atrial fibrillation: Qualifiers: Atrial fibrillation type: unspecified Qualified Code(s): I48.91 - Unspecified atrial fibrillation Code(s): I48.91 - Unspecified atrial fibrillation Status: Acute Assessment and Plan: History of atrial fibrillation, currently in sinus tachycardia -patient on oral amiodarone and Eliquis at home (5) COPD (chronic obstructive pulmonary disease): Code(s): J44.9 - Chronic obstructive pulmonary disease, unspecified Status: Acute Assessment and Plan: History of COPD, patient has diffuse wheezing -add bronchodilators -add Pulmicort (6) Diabetes: Qualifiers: Diabetes mellitus type: type 2 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: with senior care use Diabetes mellitus complication status: without complication Qualified Code(s): E11.9 - Type 2 diabetes mellitus without complications; Z79.4 - tank terminal gauger (current) use of insulin Code(s): E11.9 - Type 2 diabetes mellitus without complications Status: Acute Assessment and Plan: Accu-Cheks and sliding scale insulin (7) Ischemic cardiomyopathy: Code(s): I25.5 - Ischemic cardiomyopathy Status: Acute Assessment and Plan: History of ischemic cardiomyopathy -patient on clopidogrel, metoprolol, Entresto, spironolactone, torsemide -patient is seen [facility] in [facility] past, will consult Cardiology (8) RLS (restless legs syndrome): Code(s): G25.81 - Restless legs syndrome Status: Acute Assessment and Plan: Will hold gabapentin until patient is able to take p.o. meds Plan DVT prophylaxis:SCDs Stress ulcer prophylaxis: Protonix IV q.12 hours Nutrition: NPO Code Status: Full code Critical Care Time Spent: 49 minutes Due to a high probability of clinically significant, life threatening deterioration, the patient required my highest level of preparedness to intervene emergently and I personally spent this critical care time directly and personally managing the patient. This critical care time included obtaining a history; examining the patient; pulse oximetry; ordering and review of studies; arranging urgent treatment with development of a management plan; evaluation of patient's response to treatment; frequent reassessment; and discussions with other providers. It was exclusive of separately billable procedures and treating other patients and teaching time. Please see Assessment and Plan section and the res
[2023-05-30] MEDS: POTASSIUM CHLORIDE INJ 40 MEQ in SODIUM CHLORIDE 0.9% IV 500 ML 130 MEQ IVPB (08:41)
[2023-05-30] MEDS: PANTOPRAZOLE SODIUM IV 40 MG VIAL IV PUSH ×2 (08:41→21:46)
[2023-05-30] MEDS: IPRATROPIUM BR 0.02% INH SOLN 0.5 MG/2.5 ML VIAL INHALATION ×3 (09:32→21:28)
[2023-05-30] MEDS: BUDESONIDE RESPULE NEB 0.5 MG/2 ML AMP INHALATION ×2 (09:32→21:28)
[2023-05-30] MEDS: LEVALBUTEROL NEB 1.25 MG/3 ML 0.63 MG INHALATION ×3 (09:32→21:28)
[2023-05-30] MEDS: CEFEPIME 2 GM/NS 50 ML 2 GM/50 ML BAG IVPB ×2 (10:00→21:46)
[2023-05-30] MEDS: ALBUMIN HUMAN 25% 25 GM/100 ML 100 ML IVPB ×3 (10:00→22:25)
--- NOTE | 2023-05-30 10:19 | WPDGICN ---
Assessment and Plan Assessment and plan (1) Anemia: Code(s): D64.9 - Anemia, unspecified Status: Acute Assessment and Plan: Patient with rather profound anemia on admission. Hemoglobin of 8.1 after transfusion of 2units of blood. He was found to have Hemoccult-positive stools but no obvious blood on testing in the ER. Given his comorbid diseases stress ulceration is likely. Plan to cover with pantoprazole for possible stress ulceration. GI endoscopy would be high risk given his significant heart and lung disease. He currently has sepsis felt be on the basis of urinary tract infection. Will monitor and defer any invasive testing to later. Only would advise invasive EGD or colonoscopy if active bleeding is identified. Patient is anticoagulated with Eliquis because of atrial fibrillation. Suggest holding anticoagulation at the present time given his significant anemia and occult blood in stool. (2) Occult blood in stools: Code(s): R19.5 - Other fecal abnormalities Status: Acute Assessment and Plan: Home occult blood in stool suggested least some component of patient's anemia is on the basis of blood loss. Will cover for possible ulcer disease are present. Consider testing at a later date when he is more stable. (3) UTI (urinary tract infection): Code(s): N39.0 - Urinary tract infection, site not specified Status: Acute (4) Sepsis: Qualifiers: Sepsis acute organ dysfunction status: unspecified Sepsis type: sepsis due to unspecified organism Qualified Code(s): A41.9 - Sepsis, unspecified organism Code(s): A41.9 - Sepsis, unspecified organism Status: Acute Assessment and Plan: Sepsis likely on the basis of urinary tract infection. (5) Heart failure: Code(s): I50.9 - Heart failure, unspecified Status: Acute (6) Ischemic cardiomyopathy: Code(s): I25.5 - Ischemic cardiomyopathy Status: Acute (7) COPD (chronic obstructive pulmonary disease): Code(s): J44.9 - Chronic obstructive pulmonary disease, unspecified Status: Acute GI Consult Note Consult date/time: 05/30/23 10:19 Reason for consult: Weakness and falls at home. HPI: Rolando Moser is a 72 year old male I am asked to see at the request of the hospitalist service because of anemia and occult blood in stool. Patient was unable to give any useful history. He currently is in the intensive care unit. Patient has a history of hospitalization in October of this year admitted with septic shock he was intubated because of pneumonia. He had respiratory such failure in the setting of COPD. He apparently had acute systolic heart failure and was transferred to [facility] for support. After that admission he was sent to rehab at [facility]. He apparently has been very weak at home in for this reason taken to the emergency room and admitted. He was found to have a low hemoglobin in the 6 range. Stool was Hemoccult positive in the emergency room. Patient's past medical history is significant for diabetes, COPD, congestive heart failure, atrial fibrillation, ischemic cardiomyopathy as previously described. Patient has had no obvious bleeding. Stool in the ER was brown but found to be Hemoccult positive. Patient was found to have urinary tract infection felt to be septic and placed in the intensive care unit. He has past history of atrial fibrillation is chronically anticoagulated with Eliquis per he received 2units of packed red blood cells in the ER prior to admission to the ICU. Review of Systems Review of Systems: Review of systems noncontributory but limited by patient's mental status. [facility] Past Medical History Medical History (Updated 05/30/23 @ 10:25 by Андрей Castellanos MD) Anxiety Ataxia Atrial fibrillation Diastolic dysfunction Diverticulitis Essential hypertension Ischemic cardiomyopathy Leg weakness, bilateral Mixed hyperlipi
[2023-05-30 10:22] LABS: Hematocrit 27.7 % (42.0-52.0); Hemoglobin 8.1 g/dL (14.0-18.0)
--- NOTE | 2023-05-30 11:16 | PM.CNCAR ---
Assessment and Plan Assessment and plan (1) CAD (coronary artery disease): Code(s): I25.10 - Atherosclerotic heart disease of [place] coronary artery without angina pectoris Status: Acute Assessment and Plan: History of multiple high risk drug-eluting stents placed 11/18/2022 with 3.5 x 22 mm proximal circumflex, 4 x 15 mm to ostial left main overlapping with 4 x 8 mm ostial LAD and proximal LAD overlapping symptoms 3.0 x 22, and 2.5 x 22 mm drug-eluting stents. Patient reports he has been taking aspirin 81 mg daily, clopidogrel 75 mg daily, and Eliquis 5 mg twice daily up until admission. He denies taking NSAIDs. Antiplatelet and anticoagulant therapy has been discontinued. Given high risk multivessel stenting involving the left main patient high risk for complications off antiplatelet therapy. However, given severe anemia concern for possible active upper GI bleed is need to be held. I would recommend re-initiation of clopidogrel 75 mg daily as soon as possible when deemed feasible. However, as it has been 6 months since intervention immediate risk for acute stent thrombosis while reduced his renal and as such time off antiplatelet therapy should be limited to as short as possible. If H&H stable without transfusion if okay with GI resume clopidogrel 75 mg daily. May proceed with endoscopy per GI as they deem is warranted. ECG stable at this time, RBBB, sinus rhythm. Patient is currently hemodynamically stable and not endorsing symptoms suggestive of angina. Resume atorvastatin 40 mg at bedtime. Patient is critically ill in setting of severe anemia presenting reportedly on triple therapy with aspirin, clopidogrel, and Eliquis. Upon resumption of antiplatelet therapy I would do so with clopidogrel 75 mg daily without aspirin. We discussed risk for stent thrombosis resulting in acute myocardial infarction which could be life-threatening or fatal. At this time patient is not endorsing symptoms suggestive of cardiac ischemia yet his severe anemia may pose as a significant cardiovascular strain. I spent 82 minutes in care of this patient including examination bedside, discussion with patient and family, discussion with colleagues, chart review, medical decision-making, and documentation. (2) Anemia: Qualifiers: Anemia type: iron deficiency Iron deficiency anemia type: chronic blood loss Qualified Code(s): D50.0 - Iron deficiency anemia secondary to blood loss (chronic) Code(s): D64.9 - Anemia, unspecified Status: Acute Assessment and Plan: Severe anemia down to 6.1 improved to 8.1 status post transfusion 2 units PRBC. Continue to follow H&H closely. Appreciate GI involvement and recommendations. Continue to monitor for bleeding. I would favor proceeding with endoscopy to RO definitively evaluate his GI status and risk for ongoing bleeding given his critical need for antiplatelet therapy. Again, as above I would recommend resuming clopidogrel 75 mg daily at a minimum if okay with GI if H&H stable without evidence of active bleed. Continue IV Protonix 40 mg q.12 hours out of concern for possible stress induced ulcer disease. (3) Sepsis: Qualifiers: Sepsis acute organ dysfunction status: unspecified Sepsis type: sepsis due to unspecified organism Qualified Code(s): A41.9 - Sepsis, unspecified organism Code(s): A41.9 - Sepsis, unspecified organism Status: Acute Assessment and Plan: Continue IV ceftriaxone and vancomycin. Cultures pending. Urinalysis suggestive of UTI. Continue supportive care per primary service and Critical Care. (4) UTI (urinary tract infection): Code(s): N39.0 - Urinary tract infection, site not specified Status: Acute Assessment and Plan: Management per primary service. Continue antibiotics with ceftriaxone and vancomycin for now. (5) Paroxysmal atrial fibrillation: Code(s): I48.0 - Paroxysmal atrial fibrillation
[2023-05-30 12:06] LABS: Glucose Point of Care 108 mg/dl (65-105)
[2023-05-30] MEDS: GABAPENTIN 300 MG CAPSULE PO (12:24)
[2023-05-30] MEDS: NICOTINE (*PBKC) 21 MG PATCH 1 PATCH TRANSDERM (14:50)
[2023-05-30] MEDS: LORazepam (*CRX) 0.5 MG TABLET PO (16:31)
--- NOTE | 2023-05-30 17:11 | PC.NURSE ---
At 1400, this RN unrestrained patient to administer a bed bath. RN began to wipe patient off with warm soapy water. Patient reached for and grabbed his IV located in the left hand and pulled IV access out. RN stopped bathing patient to address IV site. Patient then proceeded to try and throw himself out of bed by attempting to throw self over side rail. Patient re-restrained. IV access site visualized and IV catheter removed intact by patient. Patient alert and oriented to person and place however is confused. at bedside and patient is requesting RN and get patient out of hospital this instant. Patient educated on importance of staying in the hospital and following doctors orders until physician deems it safe for patient to discharge. Patient resistant to education provided. Another RN called in to assist patient with completion of bed bath safely. RN to continue to monitor. Provider updated and made aware.
--- NOTE | 2023-05-30 17:33 | PC.NURSE ---
At 1436 patient thrashing around and managed to get telemetry leads near right hand and started to pull of telemetry leads. RN went to assess and place leads back on. Patient continues to tug on Mar catheter with feet and legs, and continues to request to go home. Patient safety education provided. Patient remains confused to time and situation. New stat lock placed on Mar catheter and all monitoring devices placed back on patient. RN to continue to monitor.
--- NOTE | 2023-05-30 17:37 | PC.NURSE ---
At 1500 patient was yelling out help , call light within reach. This RN went to assess patient and asked what is wrong ? Patient replied oh, it you , patient Requesting to go home again. Patient again educated on why it is not safe to discharge at this time. Patient replied with Kiss my ass . Patient now requesting this RN call the patch driller to come get the patient. Physician updated and made aware. Bed alarms on and call light within reach. RN to continue to monitor patient.
--- NOTE | 2023-05-30 17:42 | PC.NURSE ---
Addendum entered by Nydia Hodge RN 05/30/23 17:42: At 1650, This RN went to reassess patient safety, patient still requesting RN call the casino cage manager. Patient restrained loosened and patient sat up so dinner could be consumed. Patient pulled off pulse oximeter after restraint was loosened, RN went to placed pulse oximeter back on. Patient becoming increasingly agitated yelling at RN that this RN is holding him hostage and that I need to call the casino cage manager . RN again provided safety education. RN replaced pulse oximeter, at this time, patient was saturating 91% on room air, was tachypneic and audible wheezing could be heard at the bedside. RN offered to place oxygen back on patient. Patient refused oxygen and began thrashing his head. RN attempted to place O2 on patient, patient stated to this RN fuck off . Provider updated, bed alarms on, and call light within reach. RN to continue to monitor patient. Original Note: Patient received PRN dose of Ativan at 1631 for restlessness.
[2023-05-30 18:29] LABS: Glucose Point of Care 106 mg/dl (65-105)
--- NOTE | 2023-05-30 18:55 | PC.NURSE ---
This patient, Rolando Moser, was received from [facility] on 05/30/23 at 1855. Patient/family oriented to unit policies and routines
[2023-05-31] VITALS (18 sets, daily range): BP systolic 93–110; BP diastolic 44–54; PULSE 87–101; RESP 16–22; TEMP 36.5–37.2; O2SAT 96–100
[2023-05-31 00:12] LABS: Glucose Point of Care 120 mg/dl (65-105)
[2023-05-31] MEDS: LORazepam (*CRX) 0.5 MG TABLET PO (01:04)
[2023-05-31] MEDS: IPRATROPIUM BR 0.02% INH SOLN 0.5 MG/2.5 ML VIAL INHALATION ×4 (03:03→19:46)
[2023-05-31] MEDS: LEVALBUTEROL NEB 1.25 MG/3 ML 0.63 MG INHALATION ×4 (03:03→19:46)
[2023-05-31] MEDS: ALBUMIN HUMAN 25% 25 GM/100 ML 100 ML IVPB ×2 (04:10→08:52)
[2023-05-31 06:09] LABS: Glucose Point of Care 124 mg/dl (65-105)
[2023-05-31 07:43] LABS: Basophils Percent Auto 0.3 % (0.2-1.2); Eosinophils Absolute Auto 0.2 K/mm3 (0-0.3); Eosinophils Percent Auto 1.4 % (0-4.4); Hematocrit 25.6 % (42.0-52.0); Hemoglobin 7.3 g/dL (14.0-18.0); Immature Granulocyte Absolute 0.05 K/mm3 (0.00-0.031); Immature Granulocyte Percent A 0.4 % (0-0.5); Lymphocytes Absolute Auto 0.66 K/mm3 (0.9-3.2); Mean Corpuscular HGB Conc 28.5 g/dl (32-36); Mean Corpuscular Hemoglobin 25.9 pg (26-34); Mean Corpuscular Volume 90.8 fl (80-100); Mean Platelet Volume 9.7 fl (7.4-10.4); Monocytes Absolute Auto 0.9 K/mm3 (0.1-0.6); Neutrophils Absolute Auto 11.3 K/mm3 (1.3-6.7); Neutrophils Percent Auto 85.9 % (45.5-73.1); Platelet Count Result 185 k/mm3 (150-375); Red Blood Count 2.82 M/mm3 (4.6-6.20); Red Cell Distribution Width 18.3 % (11.5-14.5); White Blood Count 13.1 K/mm3 (4.5-10.0)
[2023-05-31 07:53] LABS: Lactic Acid Reflex 1.5 mmol/L (0.7-2.0)
[2023-05-31 07:54] LABS: Alanine Aminotransferase 16 U/L (6-50); Albumin Level 4.3 g/dL (3.5-5.1); Alkaline Phosphatase 68 U/L (38-126); Anion Gap 15 mmol/L (8-16); Aspartate Amino Transferase 33 U/L (17-59); Blood Urea Nitrogen 19 mg/dL (9-20); Calcium 9.2 mg/dL (8.4-10.2); Carbon Dioxide 22 mmol/L (22-30); Chloride 106 mmol/L (98-107); Estimated CRCL calculation 60 ml/min; Estimated Glomerular Filt Rate > 60; Glucose 99 mg/dL (65-110); Magnesium 2.1 mg/dL (1.6-2.3); Phosphorus 3.4 mg/dL (2.5-4.5); Potassium 3.2 mmol/L (3.4-5.0); Sodium 143 mmol/L (137-145)
[2023-05-31] MEDS: BUDESONIDE RESPULE NEB 0.5 MG/2 ML AMP INHALATION ×2 (08:34→19:46)
[2023-05-31 08:50] LABS: Platelet Estimate Adequate (Adequate)
[2023-05-31 08:51] LABS: Anisocytosis 1+ (NORMAL); Hypochromasia 1+ (NORMAL); Ovalocytes 1+ (NORMAL); Schistocytes None Seen (NORMAL)
[2023-05-31] MEDS: GABAPENTIN 300 MG CAPSULE PO (08:52)
[2023-05-31] MEDS: ACETAMINOPHEN 325 MG TABLET 650 MG PO (09:11)
[2023-05-31] MEDS: PANTOPRAZOLE SODIUM IV 40 MG VIAL IV PUSH ×2 (09:17→20:31)
[2023-05-31] MEDS: NICOTINE (*PBKC) 21 MG PATCH 1 PATCH TRANSDERM (09:17)
--- NOTE | 2023-05-31 09:50 | WPDGIPROGNO ---
Progress Note: A&P Assessment and Plan (1) Occult blood in stools: Code(s): R19.5 - Other fecal abnormalities Status: Acute Assessment and Plan: Patient with occult blood in stools as well as anemia. Plan to place patient on prophylactic proton pump inhibitors for possible stress ulcer. EGD will be performed as cardiology feels it is necessary to know how risky it is to place on anticoagulation. At this stage colonoscopy would be much more difficult and risky for this patient. Will continue to follow. (2) Anemia: Qualifiers: Anemia type: unspecified type Qualified Code(s): D64.9 - Anemia, unspecified Code(s): D64.9 - Anemia, unspecified Status: Acute Assessment and Plan: Hemoglobin stable. Marked anemia on presentation. Hemoglobin 7.3 today. Will plan EGD tomorrow. Continue PPI therapy. (3) CAD (coronary artery disease): Code(s): I25.10 - Atherosclerotic heart disease of [place] coronary artery without angina pectoris Status: Acute (4) Paroxysmal atrial fibrillation: Code(s): I48.0 - Paroxysmal atrial fibrillation Status: Acute Assessment and Plan: Anticoagulation on hold but. Cardiology wishes to restart anticoagulation will plan to proceed with EGD on Thursday. (5) Type 2 diabetes mellitus: Code(s): E11.9 - Type 2 diabetes mellitus without complications Status: Acute (6) History of cardiomyopathy: Code(s): Z86.79 - Personal history of other diseases of the circulatory system Status: Acute (7) COPD (chronic obstructive pulmonary disease): Code(s): J44.9 - Chronic obstructive pulmonary disease, unspecified Status: Acute Subjective Date/time seen: 05/31/23 09:50 Interval history: Patient alert today but remains somewhat confused. No obvious bleeding noted. Stools were found to be Hemoccult positive. Hemoglobin currently stable but significant anemia noted on presentation. Currently on prophylaxis for possible stress ulcer. Cardiology wishes to restart anticoagulation for his atrial fibrillation. Review of Systems Review of Systems: ROS unobtainable: Yes unobtainable due to mental status Exam Narrative: On physical exam patient is alert. Vital signs stable. HEENT exam unremarkable. Patient remains somewhat confused. Lungs reveal few rhonchi. Heart without murmur. Abdomen is soft flat nontender with no organomegaly. Objective Data Vital Signs Vital Signs: Vital Signs - 24 hr 05/30/23 10:00 05/30/23 10:00 05/30/23 12:00 Temperature 98.9 F Pulse Rate 103 H 101 H 49 L Respiratory Rate 21 H Blood Pressure 162/76 H 114/48 L Pulse Oximetry 100 90 Oxygen Delivery Oxygen Flow Rate 05/30/23 12:00 05/30/23 12:00 05/30/23 14:48 Temperature Pulse Rate 100 97 Respiratory Rate 105 H Blood Pressure Pulse Oximetry 95 Oxygen Delivery Room Air Oxygen Flow Rate 05/30/23 16:00 05/30/23 16:00 05/30/23 18:12 Temperature 98.8 F 99.1 F Pulse Rate 109 H 101 H Respiratory Rate 25 H 22 H Blood Pressure 110/48 L 98/52 L Pulse Oximetry 95 95 91 Oxygen Delivery Room Air Oxygen Flow Rate 05/30/23 18:12 05/30/23 16:00 05/30/23 21:33 Temperature Pulse Rate 108 H Respiratory Rate 22 H Blood Pressure Pulse Oximetry 91 95 Oxygen Delivery Nasal Cannula Nasal Cannula Oxygen Flow Rate 2 2 05/30/23 21:34 05/30/23 20:00 05/30/23 20:00 Temperature Pulse Rate 102 H 98 Respiratory Rate 20 Blood Pressure Pulse Oximetry 91 Oxygen Delivery Nasal Cannula Oxygen Flow Rate 2 05/30/23 22:00 05/31/23 00:00 05/31/23 04:00 Temperature 97.6 F Pulse Rate 98 100 101 H Respiratory Rate 20 Blood Pressure 98/48 L Pulse Oximetry 100 Oxygen Delivery Oxygen Flow Rate 05/31/23 03:03 05/31/23 03:08 05/30/23 21:50 Temperature Pulse Rate 100 100 105 H Respiratory Rate 20 20 20 Blood Pressure
[2023-05-31] MEDS: CEFEPIME 2 GM/NS 50 ML 2 GM/50 ML BAG IVPB (10:41)
--- NOTE | 2023-05-31 11:18 | PM.PNCARD ---
Progress Note: A&P Assessment and Plan (1) CAD (coronary artery disease): Code(s): I25.10 - Atherosclerotic heart disease of [place] coronary artery without angina pectoris Status: Acute Assessment and Plan: History of multiple high risk drug-eluting stents placed 11/18/2022 with 3.5 x 22 mm proximal circumflex, 4 x 15 mm to ostial left main overlapping with 4 x 8 mm ostial LAD and proximal LAD overlapping symptoms 3.0 x 22, and 2.5 x 22 mm drug-eluting stents. Patient reports he has been taking aspirin 81 mg daily, clopidogrel 75 mg daily, and Eliquis 5 mg twice daily up until admission. He denies taking NSAIDs. Antiplatelet and anticoagulant therapy has been discontinued. Given high risk multivessel stenting involving the left main patient high risk for complications off antiplatelet therapy. However, given severe anemia concern for possible active upper GI bleed is need to be held. I would recommend re-initiation of clopidogrel 75 mg daily as soon as possible when deemed feasible. However, as it has been 6 months since intervention immediate risk for acute stent thrombosis while reduced his renal and as such time off antiplatelet therapy should be limited to as short as possible. If H&H stable without transfusion if okay with GI resume clopidogrel 75 mg daily. May proceed with endoscopy per GI as they deem is warranted. ECG stable at this time, RBBB, sinus rhythm. Patient is currently hemodynamically stable and not endorsing symptoms suggestive of angina. Resume atorvastatin 40 mg at bedtime. Recommend resumption of antiplatelet therapy with clopidogrel 75 mg daily soon as possible pending results of the EGD planned for tomorrow morning. Monitor for bleeding. Follow H& H. Hemoglobin dropped somewhat overnight but overall is relatively stable. No anginal symptoms at this time. Hemodynamically stable. Patient remains quite ill and at high risk for complications particularly stent thrombosis resulting myocardial infarction off antiplatelet therapy but is at even higher risk for bleeding complications at present. (2) Anemia: Qualifiers: Anemia type: unspecified type Qualified Code(s): D64.9 - Anemia, unspecified Code(s): D64.9 - Anemia, unspecified Status: Acute Assessment and Plan: Severe anemia down to 6.1 improved to 8.1 status post transfusion 2 units PRBC. Continue to follow H&H closely. Appreciate GI involvement and recommendations. Continue to monitor for bleeding. I would favor proceeding with endoscopy to RO definitively evaluate his GI status and risk for ongoing bleeding given his critical need for antiplatelet therapy. Again, as above I would recommend resuming clopidogrel 75 mg daily at a minimum if okay with GI if H&H stable without evidence of active bleed. Continue IV Protonix 40 mg q.12 hours out of concern for possible stress induced ulcer disease. Greatly appreciate GI recommendations and involvement. EGD planned for tomorrow morning. Recommendation to follow after review. If able I would like to resume clopidogrel 75 mg daily at a minimum and Eliquis per GI recommendation. (3) Paroxysmal atrial fibrillation: Code(s): I48.0 - Paroxysmal atrial fibrillation Status: Acute Assessment and Plan: Patient currently maintaining sinus rhythm on telemetry. Continue for now monitor renal function electrolytes closely. Patient had been maintained on amiodarone 200 mg daily as an outpatient. May continue for now maintain sinus rhythm. Hold off on Eliquis given acute GI bleed and severe anemia required transfusion. (4) History of cardiomyopathy: Code(s): Z86.79 - Personal history of other diseases of the circulatory system Status: Acute Assessment and Plan: History of EF 30 35% post complex multivessel PCI of LAD, circumflex and left main EF normalized at 55-60% by echocardiogram 02/2023. Patient is not clinically in decompensated heart failure.
[2023-05-31 11:42] LABS: Glucose Point of Care 119 mg/dl (65-105)
[2023-05-31] MEDS: POTASSIUM CHLORIDE 20 MEQ ER TABLET 40 MEQ PO (12:13)
--- NOTE | 2023-05-31 14:58 | PM.IMPN ---
Progress Note: A&P Assessment and Plan (1) Sepsis: Qualifiers: Sepsis acute organ dysfunction status: unspecified Sepsis type: sepsis due to unspecified organism Qualified Code(s): A41.9 - Sepsis, unspecified organism Code(s): A41.9 - Sepsis, unspecified organism Status: Acute (2) UTI (urinary tract infection): Qualifiers: Urinary tract infection type: site unspecified Code(s): N39.0 - Urinary tract infection, site not specified Status: Acute (3) Anemia: Qualifiers: Anemia type: unspecified type Qualified Code(s): D64.9 - Anemia, unspecified Code(s): D64.9 - Anemia, unspecified Status: Acute Assessment and Plan: Severe anemia which could be a source of his generalized weakness and falls -patient has history of AFib and on Eliquis. Patient also on clopidogrel at home -will hold Eliquis and clopidogrel for now -05/29: Received 2 units of packed RBCs -GI has been consulted -Protonix IV q.12 hours -stool occult was positive in the ER (4) Atrial fibrillation: Qualifiers: Atrial fibrillation type: unspecified Qualified Code(s): I48.91 - Unspecified atrial fibrillation Code(s): I48.91 - Unspecified atrial fibrillation Status: Acute Assessment and Plan: History of atrial fibrillation, currently in sinus tachycardia -patient on oral amiodarone and Eliquis at home (5) COPD (chronic obstructive pulmonary disease): Code(s): J44.9 - Chronic obstructive pulmonary disease, unspecified Status: Acute Assessment and Plan: History of COPD, patient has diffuse wheezing -add bronchodilators -add Pulmicort (6) Diabetes: Qualifiers: Diabetes mellitus type: type 2 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: with custodial use Diabetes mellitus complication status: without complication Qualified Code(s): E11.9 - Type 2 diabetes mellitus without complications; Z79.4 - continuous churn buttermaker (current) use of insulin Code(s): E11.9 - Type 2 diabetes mellitus without complications Status: Acute Assessment and Plan: Accu-Cheks and sliding scale insulin (7) Ischemic cardiomyopathy: Code(s): I25.5 - Ischemic cardiomyopathy Status: Acute Assessment and Plan: History of ischemic cardiomyopathy -patient on clopidogrel, metoprolol, Entresto, spironolactone, torsemide -patient is [facility] in [facility] past, will consult Cardiology (8) RLS (restless legs syndrome): Code(s): G25.81 - Restless legs syndrome Status: Acute Assessment and Plan: Will hold gabapentin until patient is able to take p.o. meds Plan Patient presented with sepsis with tachycardia, leukocytosis, borderline blood pressures, severe anemia. Likely source UTI could also be acute on chronic blood loss anemia related. Received fluid resuscitation in the ER. Hemoglobin on admission is 6.4 dove down to 6.1 received 2 unit of packed red blood cells. GI has been consulted. Did not require any pressors in the ICU. On Protonix IV b.i.d. mild leukocytosis remains persistent. On broad-spectrum antibiotics. COVID flu RSV negative. CT head negative moderate sinusitis noted multifocal large chronic infarctions bilaterally. Chest x-ray with airspace opacities in the lower lung zones consistent with atelectasis versus pneumonia. CT abdomen with any intermediate density bilateral renal masses suspicious for renal cell carcinoma. MRI recommended. There is cholelithiasis and low-density right adrenal mass likely benign adenoma. Chest x-ray with perihilar increased interstitial pattern with bronchial wall thickening which may be due to mild pulmonary edema bronchitis reactive airway disease/asthma. Blood culture positive for Streptococcus mitis group. Urine culture positive for Gram-negative bacilli. Currently on vancomycin and cefepime which will be continued. Will repeat blood culture in a.m. Coronary
[2023-05-31 16:54] LABS: Glucose Point of Care 107 mg/dl (65-105)
[2023-05-31 20:03] LABS: Glucose Point of Care 86 mg/dl (65-105)
[2023-05-31] MEDS: GABAPENTIN 300 MG CAPSULE 600 MG PO (20:31)
[2023-05-31 22:40] LABS: Vancomycin Trough 10.8 ug/mL (10.0-20.0)
[2023-06-01] VITALS (25 sets, daily range): BP systolic 89–120; BP diastolic 40–87; PULSE 60–102; RESP 14–22; TEMP 35.9–37.3; O2SAT 90–100
[2023-06-01] MEDS: LEVALBUTEROL NEB 1.25 MG/3 ML 0.63 MG INHALATION ×3 (01:51→20:37)
[2023-06-01] MEDS: IPRATROPIUM BR 0.02% INH SOLN 0.5 MG/2.5 ML VIAL INHALATION ×3 (01:52→20:38)
[2023-06-01 06:16] LABS: Basophils Percent Auto 0.2 % (0.2-1.2); Eosinophils Absolute Auto 0.2 K/mm3 (0-0.3); Eosinophils Percent Auto 2.6 % (0-4.4); Immature Granulocyte Absolute 0.04 K/mm3 (0.00-0.031); Immature Granulocyte Percent A 0.5 % (0-0.5); Lymphocytes Absolute Auto 0.59 K/mm3 (0.9-3.2); Lymphocytes Percent Auto 7.3 % (18.3-44.2); Mean Corpuscular HGB Conc 28.9 g/dl (32-36); Mean Corpuscular Hemoglobin 25.8 pg (26-34); Mean Corpuscular Volume 89.4 fl (80-100); Mean Platelet Volume 9.4 fl (7.4-10.4); Monocytes Absolute Auto 0.7 K/mm3 (0.1-0.6); Neutrophils Absolute Auto 6.6 K/mm3 (1.3-6.7); Neutrophils Percent Auto 81.4 % (45.5-73.1); Platelet Count Result 160 k/mm3 (150-375); Red Blood Count 2.17 M/mm3 (4.6-6.20); Red Cell Distribution Width 17.8 % (11.5-14.5); White Blood Count 8.1 K/mm3 (4.5-10.0)
[2023-06-01 06:20] LABS: Hematocrit 19.4 % (42.0-52.0); Hemoglobin 5.6 g/dL (14.0-18.0)
[2023-06-01 07:02] LABS: Alanine Aminotransferase 16 U/L (6-50); Albumin Level 3.5 g/dL (3.5-5.1); Alkaline Phosphatase 56 U/L (38-126); Anion Gap 8 mmol/L (8-16); Aspartate Amino Transferase 27 U/L (17-59); Bilirubin,Total 0.8 mg/dL (0.2-1.3); Blood Urea Nitrogen 20 mg/dL (9-20); Calcium 8.9 mg/dL (8.4-10.2); Carbon Dioxide 23 mmol/L (22-30); Chloride 108 mmol/L (98-107); Estimated CRCL calculation 60 ml/min; Estimated Glomerular Filt Rate > 60; Glucose 99 mg/dL (65-110); Potassium 3.5 mmol/L (3.4-5.0); Sodium 139 mmol/L (137-145)
[2023-06-01 07:32] LABS: Hypochromasia 1+ (NORMAL); Ovalocytes 1+ (NORMAL); Platelet Estimate Adequate (Adequate); Schistocytes None Seen (NORMAL)
[2023-06-01 08:17] LABS: Glucose Point of Care 101 mg/dl (65-105)
[2023-06-01] MEDS: SODIUM CHLORIDE 0.9% IV 250 ML 30 ML IV CONT ×3 (09:14→15:52)
[2023-06-01] MEDS: GABAPENTIN 300 MG CAPSULE PO (09:15)
[2023-06-01] MEDS: PANTOPRAZOLE SODIUM IV 40 MG VIAL IV PUSH ×2 (09:16→20:22)
[2023-06-01] MEDS: NICOTINE (*PBKC) 21 MG PATCH 1 PATCH TRANSDERM (09:16)
--- NOTE | 2023-06-01 10:12 | PCPTNOTE ---
Attempted PT evaluation, Per Dr. Haro hold pt today/keep pt on Bedrest. Will follow.
[2023-06-01 11:47] LABS: Glucose Point of Care 108 mg/dl (65-105)
--- NOTE | 2023-06-01 11:59 | PM.IMPN ---
Progress Note: A&P Assessment and Plan (1) Sepsis: Qualifiers: Sepsis acute organ dysfunction status: unspecified Sepsis type: sepsis due to unspecified organism Qualified Code(s): A41.9 - Sepsis, unspecified organism Code(s): A41.9 - Sepsis, unspecified organism Status: Acute (2) UTI (urinary tract infection): Qualifiers: Urinary tract infection type: site unspecified Code(s): N39.0 - Urinary tract infection, site not specified Status: Acute (3) Anemia: Qualifiers: Anemia type: unspecified type Qualified Code(s): D64.9 - Anemia, unspecified Code(s): D64.9 - Anemia, unspecified Status: Acute (4) Atrial fibrillation: Qualifiers: Atrial fibrillation type: unspecified Qualified Code(s): I48.91 - Unspecified atrial fibrillation Code(s): I48.91 - Unspecified atrial fibrillation Status: Acute (5) COPD (chronic obstructive pulmonary disease): Code(s): J44.9 - Chronic obstructive pulmonary disease, unspecified Status: Acute (6) Diabetes: Qualifiers: Diabetes mellitus type: type 2 Diabetes 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 Likely source UTI could also be acute on chronic blood loss anemia related. Received fluid resuscitation in the ER. Hemoglobin on admission is 6.4 dove down to 6.1 received 2 unit of packed red blood cells. GI has been consulted. Did not require any pressors in the ICU. On Protonix IV b.i.d. mild leukocytosis remains persistent. On broad-spectrum antibiotics. COVID flu RSV negative. CT head negative moderate sinusitis noted multifocal large chronic infarctions bilaterally. Chest x-ray with airspace opacities in the lower lung zones consistent with atelectasis versus pneumonia. CT abdomen with any intermediate density bilateral renal masses suspicious for renal cell carcinoma. MRI recommended. There is cholelithiasis and low-density right adrenal mass likely benign adenoma. Chest x-ray with perihilar increased interstitial pattern with bronchial wall thickening which may be due to mild pulmonary edema bronchitis reactive airway disease/asthma. Blood culture positive for Streptococcus mitis group. Urine culture positive for Gram-negative bacilli identified as Enterobacter.. Currently on vancomycin and cefepime which will be continued. Repeat blood culture done today. Streptococcus mitis is sensitive to ceftriaxone. Will stop IV vancomycin today Coronary artery disease status post stents in 11/18 all was on triple drug therapy with aspirin Plavix and Eliquis reason been on hold due to anemia initiation of Plavix as soon as feasible. However blood count trending down again receiving more transfusion today. Will continue anti-platelet and anticoagulant on hold Streptococcal bacteremia streptococcal mitis. This is sometimes associated with underlying colon adenocarcinoma. With anemia he might need a colonoscopy evaluation as well. Will change cefepime to ceftriaxone. Will stop IV vancomycin FOBT positive stool. PPI EGD planned by GI in a.m. Paroxysmal atrial fibrillation anticoagulation hold due to anemia and GI bleed. On apixaban at home. Also on aspirin and Plavix. Resume antiplatelet when cleared by GI hopefully after EGD tomorrow. On amiodarone metoprolol Cardiomyopathy EF 30 to 35% on Entresto metopr
[2023-06-01 12:49] LABS: Basophils Percent Auto 0.3 % (0.2-1.2); Eosinophils Absolute Auto 0.3 K/mm3 (0-0.3); Eosinophils Percent Auto 3.1 % (0-4.4); Hematocrit 22.6 % (42.0-52.0); Immature Granulocyte Absolute 0.04 K/mm3 (0.00-0.031); Immature Granulocyte Percent A 0.4 % (0-0.5); Lymphocytes Absolute Auto 0.63 K/mm3 (0.9-3.2); Lymphocytes Percent Auto 7.1 % (18.3-44.2); Mean Corpuscular HGB Conc 30.5 g/dl (32-36); Mean Corpuscular Hemoglobin 26.7 pg (26-34); Mean Corpuscular Volume 87.6 fl (80-100); Mean Platelet Volume 9.5 fl (7.4-10.4); Monocytes Absolute Auto 0.6 K/mm3 (0.1-0.6); Monocytes Percent Auto 7.1 % (2.6-8.5); Neutrophils Absolute Auto 7.3 K/mm3 (1.3-6.7); Platelet Count Result 171 k/mm3 (150-375); Red Blood Count 2.58 M/mm3 (4.6-6.20); Red Cell Distribution Width 16.9 % (11.5-14.5); White Blood Count 8.9 K/mm3 (4.5-10.0)
[2023-06-01 12:51] LABS: Hemoglobin 6.9 g/dL (14.0-18.0)
[2023-06-01] MEDS: TUBING, BLOOD PLUM PUMP TUBING 1 EACH XX (13:17)
[2023-06-01] MEDS: cefTRIAXone 2 GM/NS 100 ML 2 GM/100 ML BAG IVPB (13:17)
[2023-06-01] MEDS: LACTATED RINGERS 1,000 ML 150 ML IV CONT (14:35)
[2023-06-01 14:42] LABS: Glucose Point of Care 97 mg/dl (65-105)
--- NOTE | 2023-06-01 15:15 | WPDANESEPPF ---
Anes - Initial Pre Proc Eval Procedure: Operation Date: 06/01/23 14:45 Proposed Procedures p Esophagogastroduodenoscopy - Андрей Castellanos MD Date/Time: 06/01/23 15:15 Surgeon: Rajesh Mcdonnell MD Pre Op Diagnosis: UTI/anemia requiring blood transfusion Patient Data Age: 72 Gender: M Height: 1.78 m Weight: 84.5 kg Last Vital Signs Temp 97.4 F L 06/01/23 14:37 Pulse 87 06/01/23 14:37 Resp 20 06/01/23 14:37 BP 89/43 L 06/01/23 14:37 Pulse Ox 98 06/01/23 14:37 O2 Del Method Room Air 06/01/23 14:37 O2 Flow Rate 2 06/01/23 14:04 Allergies Allergy/AdvReac Type Severity Reaction Status Date / Time No Known Allergies Allergy Verified 06/01/23 14:36 Home Medications Medication Instructions Recorded Confirmed Type aspirin 81 mg tablet 81 mg PO DAILY 10/02/21 05/29/23 History sacubitril 24 mg-valsartan 26 mg 0.5 tablet PO BID #60 tabs 02/03/23 05/29/23 Rx tablet (Entresto) spironolactone 25 mg tablet 12.5 mg PO DAILY #90 tabs 02/12/23 05/29/23 Rx alprazolam 0.5 mg tablet (Xanax) 0.5 mg PO QHS PRN sleep #30 tabs 05/03/23 05/29/23 Rx empagliflozin 10 mg tablet 10 mg PO DAILY #90 tabs 05/03/23 05/29/23 Rx (Jardiance) apixaban 5 mg tablet (Eliquis) 5 mg PO BID 05/11/23 05/29/23 History torsemide 20 mg tablet 20 mg PO QMWF 05/11/23 05/29/23 History amiodarone 200 mg tablet 200 mg PO DAILY #90 tabs 05/18/23 05/29/23 Rx atorvastatin 40 mg tablet 40 mg PO DAILY #90 tabs 05/18/23 05/29/23 Rx clopidogrel 75 mg tablet (Plavix) 75 mg PO DAILY #90 tabs 05/18/23 05/29/23 Rx gabapentin 300 mg capsule 300 mg PO QAM 05/29/23 05/29/23 History gabapentin 300 mg capsule 600 mg PO HS 05/29/23 05/29/23 History metoprolol succinate 25 mg 12.5 mg PO DAILY 05/29/23 05/29/23 History tablet,extended release 24 hr Laboratory Tests 05/29/23 05/31/23 05/31/23 15:46 16:52 20:01 WBC RBC Hgb Hct MCV MCH MCHC RDW Plt Count MPV Immature Gran % (Auto) Neut % (Auto) Lymph % (Auto) [place] % (Auto) Eos % (Auto) Baso % (Auto) Lymph # (Auto) [place] # (Auto) Eos # (Auto) Baso # (Auto) Abs Immat Gran (auto) Absolute Neuts (auto) Absolute Nucleated RBC Nucleated RBC % Platelet Estimate Hypochromasia Ovalocytes Schistocytes Sodium Potassium Chloride Carbon Dioxide Anion Gap BUN Creatinine Estim Creat Clear Calc Estimated GFR Glucose POC Capillary Glucose 107 H mg/dl 86 mg/dl (65-105) (65-105) Calcium Magnesium Total Bilirubin AST ALT Alkaline Phosphatase Total Protein Albumin Vancomycin Trough Blood Type O Positive Antibody Screen Negative Crossmatch See Detail 05/31/23 06/01/23 06/01/23 22:13 05:58 08:13 WBC 8.1 K/mm3 (4.5-10.0) RBC 2.17 L M/mm3 (4.6-6.20) Hgb 5.6 L* g/dL (14.0-18.0) Hct 19.4 L* % (42.0-52.0) MCV 89.4 fl (80-100) MCH 25.8 L pg (26-34) MCHC 28.9 L g/dl (32-36) RDW 17.8 H % (11.5-14.5) Plt Count 160 k/mm3 (150-375) MPV 9.4 fl (7.4-10.4) Immature Gran % (Auto) 0.5 % (0-0.5) Neut % (Auto) 81.4 H % (45.5-73.1) Lymph % (Auto) 7.3 L % (18.3-44.2) [place] % (Auto) 8.0 % (2.6-8.5) Eos % (Auto) 2.6 % (0-4.4) Baso % (Auto) 0.2 % (0.2-1.2) Lymph # (Auto) 0.59 L K/mm3 (0.9-3.2) [place] #
[2023-06-01 16:16] LABS: Glucose Point of Care 97 mg/dl (65-105)
[2023-06-01 16:49] LABS: Glucose Point of Care 93 mg/dl (65-105)
[2023-06-01 17:31] LABS: Hematocrit 28.1 % (42.0-52.0); Hemoglobin 8.3 g/dL (14.0-18.0)
--- NOTE | 2023-06-01 18:46 | PC.NURSE ---
2 units RBC transfused, hgb up to 8.3. No need to transfuse any more per Dr Haro
[2023-06-01] MEDS: PEG (High)/E-LYTE SOLN 4,000 ML BTL 4000 ML PO (20:21)
[2023-06-01] MEDS: GABAPENTIN 300 MG CAPSULE 600 MG PO (20:23)
[2023-06-01] MEDS: BUDESONIDE RESPULE NEB 0.5 MG/2 ML AMP INHALATION (20:37)
--- NOTE | 2023-06-01 21:26 | PC.NURSE ---
Patient being noncompliant with bowel prep at this time. Explained to patient purpose of bowel prep, patient states he understands, encouraged patient to attempt to drink bowel prep.
[2023-06-01 21:30] LABS: Glucose Point of Care 103 mg/dl (65-105)
[2023-06-02] VITALS (14 sets, daily range): BP systolic 109–126; BP diastolic 48–61; PULSE 82–99; RESP 18–20; TEMP 36.1–36.8; O2SAT 93–100
--- NOTE | 2023-06-02 01:12 | PC.NURSE ---
0000 patient's BMs not clear at this time and refusing to drink bowel prep again at this time.
[2023-06-02] MEDS: LEVALBUTEROL NEB 1.25 MG/3 ML 0.63 MG INHALATION ×4 (01:51→21:08)
[2023-06-02] MEDS: IPRATROPIUM BR 0.02% INH SOLN 0.5 MG/2.5 ML VIAL INHALATION ×4 (01:52→21:08)
[2023-06-02] MEDS: MAGNESIUM CITRATE 300 ML BTL 180 ML PO (06:03)
[2023-06-02 06:36] LABS: Basophils Percent Auto 0.3 % (0.2-1.2); Eosinophils Absolute Auto 0.2 K/mm3 (0-0.3); Eosinophils Percent Auto 3.2 % (0-4.4); Hematocrit 25.3 % (42.0-52.0); Hemoglobin 7.6 g/dL (14.0-18.0); Immature Granulocyte Absolute 0.04 K/mm3 (0.00-0.031); Immature Granulocyte Percent A 0.5 % (0-0.5); Lymphocytes Absolute Auto 0.62 K/mm3 (0.9-3.2); Lymphocytes Percent Auto 8.2 % (18.3-44.2); Mean Corpuscular Hemoglobin 26.8 pg (26-34); Mean Corpuscular Volume 89.1 fl (80-100); Mean Platelet Volume 9.9 fl (7.4-10.4); Monocytes Absolute Auto 0.6 K/mm3 (0.1-0.6); Monocytes Percent Auto 7.5 % (2.6-8.5); Neutrophils Absolute Auto 6.1 K/mm3 (1.3-6.7); Neutrophils Percent Auto 80.3 % (45.5-73.1); Platelet Count Result 178 k/mm3 (150-375); Red Blood Count 2.84 M/mm3 (4.6-6.20); Red Cell Distribution Width 16.4 % (11.5-14.5); White Blood Count 7.6 K/mm3 (4.5-10.0)
[2023-06-02 07:01] LABS: Alanine Aminotransferase 18 U/L (6-50); Albumin Level 3.6 g/dL (3.5-5.1); Alkaline Phosphatase 59 U/L (38-126); Anion Gap 10 mmol/L (8-16); Aspartate Amino Transferase 26 U/L (17-59); Blood Urea Nitrogen 19 mg/dL (9-20); Calcium 8.9 mg/dL (8.4-10.2); Carbon Dioxide 24 mmol/L (22-30); Chloride 109 mmol/L (98-107); Estimated CRCL calculation 66 ml/min; Estimated Glomerular Filt Rate > 60; Glucose 97 mg/dL (65-110); Magnesium 2.1 mg/dL (1.6-2.3); Potassium 3.4 mmol/L (3.4-5.0); Sodium 143 mmol/L (137-145)
[2023-06-02] MEDS: BUDESONIDE RESPULE NEB 0.5 MG/2 ML AMP INHALATION ×2 (07:31→21:09)
[2023-06-02 08:02] LABS: Glucose Point of Care 101 mg/dl (65-105)
[2023-06-02] MEDS: PANTOPRAZOLE SODIUM IV 40 MG VIAL IV PUSH ×2 (09:38→20:51)
[2023-06-02] MEDS: NICOTINE (*PBKC) 21 MG PATCH 1 PATCH TRANSDERM (09:38)
[2023-06-02 11:56] LABS: Glucose Point of Care 116 mg/dl (65-105)
--- NOTE | 2023-06-02 12:08 | PM.PNCARD ---
Progress Note: A&P Assessment and Plan (1) CAD (coronary artery disease): Code(s): I25.10 - Atherosclerotic heart disease of [place] coronary artery without angina pectoris Status: Acute Assessment and Plan: History of multiple high risk drug-eluting stents placed 11/18/2022 including ostial left main stent 10/2022. Antiplatelet and anticoagulant therapy has been discontinued. Given high risk multivessel stenting involving the left main patient at high risk for complications particularly stent thrombosis resulting myocardial infarction off antiplatelet therapy but is also at risk for bleeding at present. Time off antiplatelet therapy should be limited to as short as possible. --Hopefully can resume clopidogrel 75 mg daily today or tmr. --Recommend staying off ASA and Eliquis for now. Hopefully can also resume Eliquis at some point. --Resume atorvastatin 40 mg qd. (2) Anemia: Qualifiers: Anemia type: unspecified type Qualified Code(s): D64.9 - Anemia, unspecified Code(s): D64.9 - Anemia, unspecified Status: Acute Assessment and Plan: Status post transfusion 4 units PRBC. EGD neg 06/01/2023. Mild decline in H&H today. --Getting IV Protonix 40 mg q.12 hours out of concern for possible stress induced ulcer disease. --Colonoscopy today. --If able I would like to resume clopidogrel 75 mg daily at a minimum, and Eliquis per GI recommendation. (3) Paroxysmal atrial fibrillation: Code(s): I48.0 - Paroxysmal atrial fibrillation Status: Acute Assessment and Plan: Patient currently maintaining sinus rhythm on telemetry. --Cont amiodarone 200 mg daily as an outpatient. --Hold off on Eliquis given acute GI bleed and severe anemia required transfusion. (4) History of cardiomyopathy: Code(s): Z86.79 - Personal history of other diseases of the circulatory system Status: Acute Assessment and Plan: History of EF 30 35% post complex multivessel PCI of LAD, circumflex and left main EF normalized at 55-60% by echocardiogram 02/2023. Patient is not clinically in decompensated heart failure. Pt has been hypotensive and BP soft today --Gradually resume spironolactone 25 mg daily, Entresto 24/26 mg twice daily, and torsemide 20 mg daily, Jardiance 10 mg daily if he remains hemodynamically stable and renal function and electrolytes permit. (5) Sepsis: Qualifiers: Sepsis acute organ dysfunction status: unspecified Sepsis type: sepsis due to unspecified organism Qualified Code(s): A41.9 - Sepsis, unspecified organism Code(s): A41.9 - Sepsis, unspecified organism Status: Acute Assessment and Plan: Stable, improving. Continue IV ceftriaxone and vancomycin. Urinalysis suggestive of UTI. Continue supportive care per primary service. (6) Mixed hyperlipidemia: Code(s): E78.2 - Mixed hyperlipidemia Status: Acute Assessment and Plan: Resume atorvastatin 40 mg daily. Goal LDL less than 70 (7) UTI (urinary tract infection): Qualifiers: Urinary tract infection type: site unspecified Code(s): N39.0 - Urinary tract infection, site not specified Status: Acute Assessment and Plan: Management per primary service. Continue antibiotics with ceftriaxone and vancomycin for now. (8) COPD (chronic obstructive pulmonary disease): Code(s): J44.9 - Chronic obstructive pulmonary disease, unspecified Status: Acute Assessment and Plan: Management per primary service. Stable. Wean O2 supplementation as warranted. Subjective Date/time seen: 06/02/23 12:08 Interval history: Follow-up for history of CAD with recent stents, paroxysmal AFib, severe anemia History of multiple high risk drug-eluting stents placed 11/18/2022 with 3.5 x 22 mm proximal circumflex, 4 x 15 mm to ostial left main overlapping with 4 x 8 mm ostial LAD and proximal LAD overlapping symptoms 3.0 x 22
[2023-06-02] MEDS: GABAPENTIN 300 MG CAPSULE PO (12:13)
--- NOTE | 2023-06-02 13:20 | WPDGIPROGNO ---
Progress Note: A&P Assessment and Plan (1) Anemia: Qualifiers: Anemia type: unspecified type Qualified Code(s): D64.9 - Anemia, unspecified Code(s): D64.9 - Anemia, unspecified Status: Acute Assessment and Plan: Patient with significant anemia. He now has had 4units of packed cells during this admission. Hemoglobin 7.6 today is relatively stable. Appears as though he has GI blood loss with Hemoccult positive stools there dark. EGD yesterday was unremarkable. Plan for colonoscopy but patient unable to tolerate prep at this time. Will give additional prep today in hopes to proceed with this tomorrow. Continue supportive care. Hold anticoagulation for now. (2) UTI (urinary tract infection): Qualifiers: Urinary tract infection type: site unspecified Code(s): N39.0 - Urinary tract infection, site not specified Status: Acute (3) CAD (coronary artery disease): Code(s): I25.10 - Atherosclerotic heart disease of [place] coronary artery without angina pectoris Status: Acute (4) Occult blood in stools: Code(s): R19.5 - Other fecal abnormalities Status: Acute Subjective Date/time seen: 06/02/23 13:20 Interval history: Patient unable to take preparation for colonoscopy. He refused enema preparation as well. Stools are nor to be darkish greenish in nature. Review of Systems Review of Systems: Review of systems unremarkable Exam Narrative: Physical exam reveals patient comfortable lying in bed. He is unable to get out of bed and ambulate on his own. HEENT exam reveals no icterus. Lungs are clear. Heart without murmur. Abdomen is soft and nontender. Objective Data Vital Signs Vital Signs: Vital Signs - 24 hr 06/01/23 14:03 06/01/23 14:04 06/01/23 14:09 Temperature Pulse Rate 90 90 91 Respiratory Rate 18 18 18 Blood Pressure Pulse Oximetry 96 Oxygen Delivery Nasal Cannula Oxygen Flow Rate 2 06/01/23 14:37 06/01/23 14:12 06/01/23 15:12 Temperature 97.4 F L 97.4 F L 97.6 F Pulse Rate 87 87 92 Respiratory Rate 20 20 22 H Blood Pressure 89/43 L 89/43 L 119/46 L Pulse Oximetry 98 98 90 Oxygen Delivery Room Air Oxygen Flow Rate 06/01/23 15:46 06/01/23 15:55 06/01/23 16:05 Temperature 98.3 F Pulse Rate 88 83 82 Respiratory Rate 20 21 H 18 Blood Pressure 120/50 L 94/40 L 105/59 L Pulse Oximetry 97 95 100 Oxygen Delivery Nasal Cannula Nasal Cannula Oxygen Flow Rate 2 2 06/01/23 16:15 06/01/23 20:39 06/01/23 20:40 Temperature Pulse Rate 84 97 91 Respiratory Rate 19 18 18 Blood Pressure 119/46 L Pulse Oximetry 100 96 Oxygen Delivery Nasal Cannula Nasal Cannula Oxygen Flow Rate 2 2 06/01/23 20:53 06/01/23 20:10 06/02/23 01:54 Temperature 98 F Pulse Rate 96 87 99 Respiratory Rate 18 16 18 Blood Pressure 103/43 L Pulse Oximetry 100 Oxygen Delivery Oxygen Flow Rate 06/02/23 06:03 06/02/23 07:25 06/02/23 07:25 Temperature 98.2 F Pulse Rate 96 87 87 Respiratory Rate 20 18 18 Blood Pressure 109/48 L Pulse Oximetry 96 94 Oxygen Delivery Nasal Cannula Oxygen Flow Rate 2 06/02/23 07:35 Temperature Pulse Rate 90 Respiratory Rate 18 Blood Pressure Pulse Oximetry Oxygen Delivery Oxygen Flow Rate Intake/Output Intake/Output: Intake & Output 05/30/23 05/31/23 06/01/23 06/02/23 23:59 23:59 23:59 23:59 Intake Total 1877 1966 2318 3190 Output Total 3350 1455 850 Balance -0341 070 2964 3190 Meds/Results Medications: Active Medications Generic Name Dose Route Start Last Admin Trade Name Freq PRN Reason Stop Dose Admin Acetaminophen 650 mg 05/29/23 15:41 05/31/23 09:11 Acetaminophen 325 Mg Tablet PO 650 mg Q4H PRN Administration Mild Pain (1-3) or Fever Atorvastatin Calcium 40 mg 06/03/23 09:00 Atorvastatin 40 Mg Tablet PO DAILY BRISA Budesonide 0.5 mg 05/30/23 08:00 06/02/23 07:31
[2023-06-02] MEDS: cefTRIAXone 2 GM/NS 100 ML 2 GM/100 ML BAG IVPB (14:45)
[2023-06-02] MEDS: polyethylene glycoL 3350 238 GM BOTTLE PO ×2 (15:16→22:42)
--- NOTE | 2023-06-02 15:36 | PM.IMPN ---
Progress Note: A&P Assessment and Plan (1) Sepsis: Qualifiers: Sepsis acute organ dysfunction status: unspecified Sepsis type: sepsis due to unspecified organism Qualified Code(s): A41.9 - Sepsis, unspecified organism Code(s): A41.9 - Sepsis, unspecified organism Status: Acute (2) UTI (urinary tract infection): Qualifiers: Urinary tract infection type: site unspecified Code(s): N39.0 - Urinary tract infection, site not specified Status: Acute (3) Anemia: Qualifiers: Anemia type: unspecified type Qualified Code(s): D64.9 - Anemia, unspecified Code(s): D64.9 - Anemia, unspecified Status: Acute (4) Atrial fibrillation: Qualifiers: Atrial fibrillation type: unspecified Qualified Code(s): I48.91 - Unspecified atrial fibrillation Code(s): I48.91 - Unspecified atrial fibrillation Status: Acute (5) COPD (chronic obstructive pulmonary disease): Code(s): J44.9 - Chronic obstructive pulmonary disease, unspecified Status: Acute (6) Diabetes: Qualifiers: Diabetes mellitus type: type 2 Diabetes mellitus intermediate manager insulin use: with jail use Diabetes mellitus complication status: without complication Qualified Code(s): E11.9 - Type 2 diabetes mellitus without complications; Z79.4 - intermediate manager (current) use of insulin Code(s): E11.9 - Type 2 diabetes mellitus without complications Status: Acute (7) Ischemic cardiomyopathy: Code(s): I25.5 - Ischemic cardiomyopathy Status: Acute (8) RLS (restless legs syndrome): Code(s): G25.81 - Restless legs syndrome Status: Acute Plan Patient presented with sepsis with tachycardia, leukocytosis, borderline blood pressures, severe anemia. Likely source UTI could also be acute on chronic blood loss anemia related. Received fluid resuscitation in the ER. Hemoglobin on admission is 6.4 dove down to 6.1 received 2 unit of packed red blood cells. GI has been consulted. Did not require any pressors in the ICU. On Protonix IV b.i.d. mild leukocytosis remains persistent. On broad-spectrum antibiotics. COVID flu RSV negative. CT head negative moderate sinusitis noted multifocal large chronic infarctions bilaterally. Chest x-ray with airspace opacities in the lower lung zones consistent with atelectasis versus pneumonia. CT abdomen with any intermediate density bilateral renal masses suspicious for renal cell carcinoma. MRI recommended. There is cholelithiasis and low-density right adrenal mass likely benign adenoma. Chest x-ray with perihilar increased interstitial pattern with bronchial wall thickening which may be due to mild pulmonary edema bronchitis reactive airway disease/asthma. Blood culture positive for Streptococcus mitis group. Urine culture positive for Gram-negative bacilli identified as Enterobacter.. Currently on vancomycin and cefepime which will be continued. Repeat blood culture done and remains negative so far. Streptococcus mitis is sensitive to ceftriaxone. Will stop IV vancomycin today Coronary artery disease status post stents in 11/18 all was on triple drug therapy with aspirin Plavix and Eliquis reason been on hold due to anemia initiation of Plavix as soon as feasible. However blood count trending down again receiving more transfusion today. Will continue anti-platelet and anticoagulant on hold Streptococcal bacteremia streptococcal mitis. This is sometimes associated with underlying colon adenocarcinoma. With anemia he might need a colonoscopy evaluation as well. Will change cefepime to ceftriaxone. Stopped iV vancomycin FOBT positive stool. PPI EGD with duodenal nodule. Prominent folds in this area. No evidence of ulceration or bleeding. Plan for colonoscopy however could not be done today prep today for planned colonoscopy in a.m. Paroxysmal atrial fibrillation anticoagulation hold due to anemia and GI bleed. On ap
[2023-06-02 17:06] LABS: Glucose Point of Care 96 mg/dl (65-105)
[2023-06-02] MEDS: GABAPENTIN 300 MG CAPSULE 600 MG PO (20:51)
[2023-06-02 20:55] LABS: Glucose Point of Care 89 mg/dl (65-105)
[2023-06-03] VITALS (18 sets, daily range): BP systolic 86–116; BP diastolic 34–55; PULSE 78–101; RESP 14–20; TEMP 35.8–36.9; O2SAT 90–100
[2023-06-03 05:43] LABS: Basophils Percent Auto 0.3 % (0.2-1.2); Eosinophils Absolute Auto 0.3 K/mm3 (0-0.3); Hematocrit 25.3 % (42.0-52.0); Hemoglobin 7.5 g/dL (14.0-18.0); Immature Granulocyte Absolute 0.04 K/mm3 (0.00-0.031); Immature Granulocyte Percent A 0.5 % (0-0.5); Lymphocytes Absolute Auto 0.63 K/mm3 (0.9-3.2); Lymphocytes Percent Auto 8.4 % (18.3-44.2); Mean Corpuscular HGB Conc 29.6 g/dl (32-36); Mean Corpuscular Hemoglobin 26.5 pg (26-34); Mean Corpuscular Volume 89.4 fl (80-100); Mean Platelet Volume 9.1 fl (7.4-10.4); Monocytes Absolute Auto 0.5 K/mm3 (0.1-0.6); Monocytes Percent Auto 6.6 % (2.6-8.5); Neutrophils Percent Auto 80.2 % (45.5-73.1); Platelet Count Result 185 k/mm3 (150-375); Red Blood Count 2.83 M/mm3 (4.6-6.20); Red Cell Distribution Width 16.7 % (11.5-14.5); White Blood Count 7.5 K/mm3 (4.5-10.0)
[2023-06-03 06:00] LABS: Alanine Aminotransferase 19 U/L (6-50); Albumin Level 3.7 g/dL (3.5-5.1); Alkaline Phosphatase 64 U/L (38-126); Anion Gap 10 mmol/L (8-16); Aspartate Amino Transferase 22 U/L (17-59); Bilirubin,Total 0.7 mg/dL (0.2-1.3); Blood Urea Nitrogen 16 mg/dL (9-20); Calcium 8.8 mg/dL (8.4-10.2); Carbon Dioxide 26 mmol/L (22-30); Chloride 106 mmol/L (98-107); Estimated CRCL calculation 66 ml/min; Estimated Glomerular Filt Rate > 60; Glucose 91 mg/dL (65-110); Magnesium 2.4 mg/dL (1.6-2.3); Potassium 3.3 mmol/L (3.4-5.0); Sodium 142 mmol/L (137-145)
[2023-06-03 06:33] LABS: Platelet Estimate Adequate (Adequate)
[2023-06-03 06:34] LABS: Anisocytosis 1+ (NORMAL); Hypochromasia 1+ (NORMAL); Microcytosis 1+ (NORMAL); Poikilocytosis 1+ (NORMAL); Schistocytes Rare (NORMAL)
[2023-06-03 06:35] LABS: Ovalocytes 1+ (NORMAL)
[2023-06-03] MEDS: MAGNESIUM CITRATE 300 ML BTL 180 ML PO (06:54)
[2023-06-03 07:39] LABS: Glucose Point of Care 93 mg/dl (65-105)
--- NOTE | 2023-06-03 07:50 | PCRCNOTE ---
RT entered pt's room to give pt 0800 neb tx, pt refused neb tx this morning. RT got SPO2 levels of 90% due to pt having oxygen out of nose. RT placed pt's nasal cannula back in pt's nose on 2L. RN informed of refusal and o2 stats.
[2023-06-03] MEDS: PANTOPRAZOLE SODIUM IV 40 MG VIAL IV PUSH (08:55)
[2023-06-03] MEDS: NICOTINE (*PBKC) 21 MG PATCH 1 PATCH TRANSDERM (08:55)
[2023-06-03] MEDS: KCL 20 MEQ/SW 100 ML 100 ML 12.5 MEQ IVPB (09:09)
--- NOTE | 2023-06-03 11:10 | PC.NURSE ---
To GI Lab via wheelchair.
[2023-06-03] MEDS: LACTATED RINGERS 1,000 ML 150 ML IV CONT (11:30)
[2023-06-03 11:31] LABS: Glucose Point of Care 97 mg/dl (65-105)
--- NOTE | 2023-06-03 11:48 | PM.PNCARD ---
Progress Note: A&P Assessment and Plan (1) CAD (coronary artery disease): Code(s): I25.10 - Atherosclerotic heart disease of [place] coronary artery without angina pectoris Status: Acute Assessment and Plan: History of multiple high risk drug-eluting stents placed 11/18/2022 including ostial left main stent 10/2022. Antiplatelet and anticoagulant therapy has been discontinued on admission 05/29/2023 due to GI bleed. Given high risk multivessel stenting involving the left main patient at high risk for complications particularly stent thrombosis resulting myocardial infarction off antiplatelet therapy but is also at risk for bleeding at present. Time off antiplatelet therapy should be limited to as short as possible. --Hopefully can resume clopidogrel 75 mg daily tmr, or Thursday at latest. --Recommend staying off ASA and Eliquis for now. Hopefully can also resume Eliquis at some point. --Resume atorvastatin 40 mg qd. (2) Anemia: Qualifiers: Anemia type: unspecified type Qualified Code(s): D64.9 - Anemia, unspecified Code(s): D64.9 - Anemia, unspecified Status: Acute Assessment and Plan: Status post transfusion 4 units PRBC. EGD neg 06/01/2023. Colonoscopy showed polyps but no active bleeding. Mild decline in H&H today. --Getting IV Protonix 40 mg q.12 hours out of concern for possible stress induced ulcer disease. --upper GI with small-bowel follow-through done today, results pending. --hope to resume clopidogrel 75 mg daily tomorrow, or Thursday at latest. (3) Paroxysmal atrial fibrillation: Code(s): I48.0 - Paroxysmal atrial fibrillation Status: Acute Assessment and Plan: Patient currently maintaining sinus rhythm on telemetry. --Resume home amiodarone 200 mg daily --Hold off on Eliquis given acute GI bleed and severe anemia required transfusion. (4) History of cardiomyopathy: Code(s): Z86.79 - Personal history of other diseases of the circulatory system Status: Acute Assessment and Plan: History of EF 30 35%, s/ post complex multivessel PCI of LAD, circumflex and left main EF normalized at 55-60% by echocardiogram 02/2023. Patient is not clinically in decompensated heart failure. Pt has been hypotensive and BP soft today --Gradually resume spironolactone 25 mg daily, Entresto 24/26 mg twice daily, and torsemide 20 mg daily, Jardiance 10 mg daily if he remains hemodynamically stable and renal function and electrolytes permit. (5) Sepsis: Qualifiers: Sepsis acute organ dysfunction status: unspecified Sepsis type: sepsis due to unspecified organism Qualified Code(s): A41.9 - Sepsis, unspecified organism Code(s): A41.9 - Sepsis, unspecified organism Status: Acute Assessment and Plan: Admitted w/ sepsis/UTI. Improving, BP more stable. Continue IV ceftriaxone and vancomycin. Urinalysis suggestive of UTI. Continue supportive care per primary service. (6) COPD (chronic obstructive pulmonary disease): Code(s): J44.9 - Chronic obstructive pulmonary disease, unspecified Status: Acute Assessment and Plan: Management per primary service. Stable. Wean O2 supplementation as warranted. (7) Hypokalemia: Code(s): E87.6 - Hypokalemia Status: Acute Assessment and Plan: K+ supplemented Subjective Date/time seen: 06/03/23 11:48 Interval history: Follow-up for history of CAD with recent stents, paroxysmal AFib, severe anemia. Initially admitted with sepsis. History of multiple high risk drug-eluting stents placed 11/18/2022 with 3.5 x 22 mm proximal circumflex, 4 x 15 mm to ostial left main overlapping with 4 x 8 mm ostial LAD and proximal LAD overlapping symptoms 3.0 x 22, and 2.5 x 22 mm drug-eluting stents, done at [facility]. Rn Ccu is Dr. Anand.? Admitted w/ anemia, s/p 2 units PRBCs. Patient reports he has been taking aspirin 81 mg daily, clopidogrel 75 mg
[2023-06-03] MEDS: SIMETHICONE ORAL SUSPENSION 20 MG/0.3 ML 30 ML BOTTLE PO (12:02)
--- NOTE | 2023-06-03 13:54 | PM.IMPN ---
Progress Note: A&P Assessment and Plan (1) Sepsis: Qualifiers: Sepsis acute organ dysfunction status: unspecified Sepsis type: sepsis due to unspecified organism Qualified Code(s): A41.9 - Sepsis, unspecified organism Code(s): A41.9 - Sepsis, unspecified organism Status: Acute (2) UTI (urinary tract infection): Qualifiers: Urinary tract infection type: site unspecified Code(s): N39.0 - Urinary tract infection, site not specified Status: Acute (3) Anemia: Qualifiers: Anemia type: unspecified type Qualified Code(s): D64.9 - Anemia, unspecified Code(s): D64.9 - Anemia, unspecified Status: Acute (4) Atrial fibrillation: Qualifiers: Atrial fibrillation type: unspecified Qualified Code(s): I48.91 - Unspecified atrial fibrillation Code(s): I48.91 - Unspecified atrial fibrillation Status: Acute (5) COPD (chronic obstructive pulmonary disease): Code(s): J44.9 - Chronic obstructive pulmonary disease, unspecified Status: Acute (6) Diabetes: Qualifiers: Diabetes mellitus type: type 2 Diabetes mellitus terminal system operator insulin use: with terminal system operator use Diabetes mellitus complication status: without complication Qualified Code(s): E11.9 - Type 2 diabetes mellitus without complications; Z79.4 - terminal supervisor (current) use of insulin Code(s): E11.9 - Type 2 diabetes mellitus without complications Status: Acute (7) Ischemic cardiomyopathy: Code(s): I25.5 - Ischemic cardiomyopathy Status: Acute (8) RLS (restless legs syndrome): Code(s): G25.81 - Restless legs syndrome Status: Acute Plan 72 y/o M with past medical history of diabetes mellitus, COPD, diastolic dysfunction, ischemic cardiomyopathy presented with generalized weakness and falls. Was found to be in sepsis with tachycardia along with hypotension and severe anemia. Has received a total of 4 units of PRBC during this admission. Was initially in ICU. GI was consulted. COVID, flu, RSV were negative. CT head negative moderate sinusitis noted multifocal large chronic infarctions bilaterally. Chest x-ray with airspace opacities in the lower lung zones consistent with atelectasis versus pneumonia. CT abdomen with any intermediate density bilateral renal masses suspicious for renal cell carcinoma. MRI recommended. There is cholelithiasis and low-density right adrenal mass likely benign adenoma. Chest x-ray with perihilar increased interstitial pattern with bronchial wall thickening which may be due to mild pulmonary edema bronchitis reactive airway disease/asthma. Blood culture was positive for Streptococcus mitis group, urine culture was positive for Gram-negative bacilli, identified as Enterobacter. Repeat blood culture was negative. Was started on IV vancomycin and cefepime, later vancomycin was stopped and continued on ceftriaxone. History of coronary artery disease status post stents on 11/18, was on aspirin, Plavix and Eliquis. 1. Sepsis secondary to acute UTI: Urine culture grew Enterococcus sensitive to ceftriaxone Will continue with ceftriaxone for total 7 days Blood culture seems to be a contaminant 2. Acute anemia: Status post 4 units of PRBC this admission Fecal occult blood was positive Status post EGD with no evidence of bleeding/ulcers Plan for colonoscopy today Continue with PPI 3. History of coronary artery disease+ atrial fibrillation+ cardiomyopathy: Appreciate cardiology help Antiplatelet and anticoagulant has been discontinued/on hold due to ongoing anemia workup Hopefully can resume clopidogrel 75 mg daily today or tmr. Recommend staying off ASA and Eliquis for now.? Hopefully can also resume Eliquis at some point. Resume atorvastatin 40 mg qd. 4. Diabetes mellitus: Blood glucose checked t.i.d. a.c. and HS Continue with sliding scale insulin Adjust dose as needed 5. Hypokalemia: Supplement potassium 6
--- NOTE | 2023-06-03 14:55 | PC.NURSE ---
Back from GI Lab and x-ray via stretcher.
[2023-06-03] MEDS: cefTRIAXone 2 GM/NS 100 ML 2 GM/100 ML BAG IVPB (15:02)
--- NOTE | 2023-06-03 15:25 | PC.NURSE ---
Back from X-ray via stretcher.
[2023-06-03] MEDS: POTASSIUM CHLORIDE 20 MEQ ER TABLET 40 MEQ PO (15:58)
[2023-06-03] MEDS: GABAPENTIN 300 MG CAPSULE PO (15:59)
[2023-06-03] MEDS: ATORVASTATIN 40 MG TABLET PO (16:00)
[2023-06-03 16:25] LABS: Glucose Point of Care 90 mg/dl (65-105)
[2023-06-03] MEDS: IPRATROPIUM BR 0.02% INH SOLN 0.5 MG/2.5 ML VIAL INHALATION (20:15)
[2023-06-03] MEDS: LEVALBUTEROL NEB 1.25 MG/3 ML 0.63 MG INHALATION (20:15)
[2023-06-03] MEDS: BUDESONIDE RESPULE NEB 0.5 MG/2 ML AMP INHALATION (20:15)
[2023-06-03] MEDS: GABAPENTIN 300 MG CAPSULE 600 MG PO (20:23)
[2023-06-03] MEDS: PANTOPRAZOLE 40 MG TABLET PO (20:24)
[2023-06-03 21:10] LABS: Glucose Point of Care 101 mg/dl (65-105)
[2023-06-03] MEDS: LORazepam (*CRX) 0.5 MG TABLET PO (23:52)
[2023-06-04] VITALS (22 sets, daily range): BP systolic 94–118; BP diastolic 45–58; PULSE 76–96; RESP 16–22; TEMP 36.4–36.6; O2SAT 91–100
[2023-06-04] MEDS: IPRATROPIUM BR 0.02% INH SOLN 0.5 MG/2.5 ML VIAL INHALATION ×3 (01:54→20:40)
[2023-06-04] MEDS: LEVALBUTEROL NEB 1.25 MG/3 ML 0.63 MG INHALATION ×3 (01:54→20:40)
[2023-06-04 06:29] LABS: Basophils Percent Auto 0.5 % (0.2-1.2); Eosinophils Absolute Auto 0.4 K/mm3 (0-0.3); Hematocrit 23.6 % (42.0-52.0); Immature Granulocyte Absolute 0.04 K/mm3 (0.00-0.031); Immature Granulocyte Percent A 0.5 % (0-0.5); Lymphocytes Absolute Auto 0.79 K/mm3 (0.9-3.2); Lymphocytes Percent Auto 8.9 % (18.3-44.2); Mean Corpuscular HGB Conc 29.2 g/dl (32-36); Mean Corpuscular Hemoglobin 26.5 pg (26-34); Mean Corpuscular Volume 90.8 fl (80-100); Mean Platelet Volume 9.7 fl (7.4-10.4); Monocytes Absolute Auto 0.6 K/mm3 (0.1-0.6); Monocytes Percent Auto 7.2 % (2.6-8.5); Neutrophils Percent Auto 78.9 % (45.5-73.1); Platelet Count Result 185 k/mm3 (150-375); Red Cell Distribution Width 16.8 % (11.5-14.5); White Blood Count 8.9 K/mm3 (4.5-10.0)
[2023-06-04 06:33] LABS: Hemoglobin 6.9 g/dL (14.0-18.0)
[2023-06-04 06:44] LABS: Alanine Aminotransferase 17 U/L (6-50); Albumin Level 3.3 g/dL (3.5-5.1); Alkaline Phosphatase 61 U/L (38-126); Anion Gap 5 mmol/L (8-16); Aspartate Amino Transferase 18 U/L (17-59); Bilirubin,Total 0.6 mg/dL (0.2-1.3); Blood Urea Nitrogen 18 mg/dL (9-20); Calcium 8.6 mg/dL (8.4-10.2); Carbon Dioxide 27 mmol/L (22-30); Chloride 107 mmol/L (98-107); Estimated CRCL calculation 60 ml/min; Estimated Glomerular Filt Rate > 60; Glucose 99 mg/dL (65-110); Magnesium 2.4 mg/dL (1.6-2.3); Potassium 3.6 mmol/L (3.4-5.0); Sodium 139 mmol/L (137-145)
[2023-06-04 08:10] LABS: Anisocytosis 2+ (NORMAL); Hypochromasia 1+ (NORMAL); Ovalocytes 1+ (NORMAL); Platelet Estimate Adequate (Adequate); Schistocytes Rare (NORMAL)
[2023-06-04 08:26] LABS: Glucose Point of Care 98 mg/dl (65-105)
[2023-06-04] MEDS: BUDESONIDE RESPULE NEB 0.5 MG/2 ML AMP INHALATION ×2 (08:31→20:38)
[2023-06-04] MEDS: PANTOPRAZOLE 40 MG TABLET PO ×2 (08:46→21:24)
[2023-06-04] MEDS: AMIODARONE HCL 200 MG TABLET PO (08:46)
[2023-06-04] MEDS: GABAPENTIN 300 MG CAPSULE PO (08:46)
[2023-06-04] MEDS: ATORVASTATIN 40 MG TABLET PO (08:48)
[2023-06-04] MEDS: NICOTINE (*PBKC) 21 MG PATCH 1 PATCH TRANSDERM (08:49)
[2023-06-04] MEDS: SODIUM CHLORIDE 0.9% IV 250 ML 30 ML IV CONT (10:59)
[2023-06-04 12:10] LABS: Glucose Point of Care 275 mg/dl (65-105)
[2023-06-04] MEDS: INSULIN ASPART (*BKC) 100 UNITS/ML SUB-Q (12:10)
--- NOTE | 2023-06-04 13:04 | WPDGIPROGNO ---
Progress Note: A&P Assessment and Plan (1) Anemia: Qualifiers: Anemia type: unspecified type Qualified Code(s): D64.9 - Anemia, unspecified Code(s): D64.9 - Anemia, unspecified Status: Acute Assessment and Plan: Anemia likely multifactorial. GI series with no obvious source for blood loss. Colon polyps which appear benign more removed by colonoscopy. Small-bowel follow-through obtain yesterday is unremarkable. Agree with regular diet. Continue to monitor hemoglobin closely. May need to consider other sources of anemia. I will be out of town for a few days. [facility] available if necessary for consultation. (2) Occult blood in stools: Code(s): R19.5 - Other fecal abnormalities Status: Acute Assessment and Plan: Patient had occult blood in stool. Colon polyps were identified but remainder GI tract was unremarkable. No obvious source for recent blood loss. Plan to monitor hemoglobin closely and transfuse if necessary. I would continue empirically on pantoprazole for at least a brief time. Probably be best to wait a day or 2 prior to reinstituting anticoagulation. (3) History of cardiomyopathy: Code(s): Z86.79 - Personal history of other diseases of the circulatory system Status: Acute (4) Type 2 diabetes mellitus: Code(s): E11.9 - Type 2 diabetes mellitus without complications Status: Acute (5) CAD (coronary artery disease): Code(s): I25.10 - Atherosclerotic heart disease of [place] coronary artery without angina pectoris Status: Acute Subjective Date/time seen: 06/04/23 13:04 Interval history: Patient remains at baseline. Tolerating regular diet. No active obvious GI blood loss noted. Hemoglobin 6.9 this morning however. Review of Systems Review of Systems: Review of systems noncontributory. Exam Narrative: Physical exam reveals patient be alert. He denies any obvious bleeding. Denies abdominal pain. Tolerated diet. Lungs are clear. Heart without murmur. Abdomen bowel sounds present soft nontender. No organomegaly. Objective Data Vital Signs Vital Signs: Vital Signs - 24 hr 06/03/23 15:00 06/03/23 16:00 06/03/23 20:00 Temperature 97.3 F L Pulse Rate 83 78 Respiratory Rate 20 Blood Pressure 116/46 L Pulse Oximetry 95 94 Oxygen Delivery Nasal Cannula Oxygen Flow Rate 2 06/03/23 20:00 06/03/23 20:18 06/03/23 20:20 Temperature Pulse Rate 87 83 Respiratory Rate 18 Blood Pressure Pulse Oximetry 93 Oxygen Delivery Room Air Oxygen Flow Rate 06/03/23 20:26 06/03/23 22:00 06/04/23 00:00 Temperature 98.5 F Pulse Rate 84 83 84 Respiratory Rate 18 14 Blood Pressure 109/44 L Pulse Oximetry 93 Oxygen Delivery Oxygen Flow Rate 06/04/23 01:56 06/04/23 02:02 06/04/23 04:00 Temperature Pulse Rate 87 86 95 Respiratory Rate 18 18 Blood Pressure Pulse Oximetry Oxygen Delivery Oxygen Flow Rate 06/04/23 06:00 06/04/23 08:32 06/04/23 08:46 Temperature 97.6 F Pulse Rate 93 91 86 Respiratory Rate 18 18 Blood Pressure 94/48 L Pulse Oximetry 91 Oxygen Delivery Oxygen Flow Rate 06/04/23 09:30 06/04/23 11:55 Temperature 98 F Pulse Rate 96 Respiratory Rate 20 Blood Pressure 100/58 L Pulse Oximetry 96 100 Oxygen Delivery Nasal Cannula Oxygen Flow Rate 2 Intake/Output Intake/Output: Intake & Output 06/01/23 06/02/23 06/03/23 06/04/23 23:59 23:59 23:59 23:59 Intake Total 2318 4062 1828 1040 Output Total 850 Balance 1468 4062 1828 1040 Meds/Results Medications: Active Medications Generic Name Dose Route Start Last Admin Trade Name Freq PRN Reason Stop Dose Admin Acetaminophen 650 mg 05/29/23 15:41 05/31/23 09:11 Acetaminophen 325 Mg Tablet PO 650 mg Q4H PRN Administration Mild Pain (1-3) or Fever Amiodarone HCl 200 mg 06/04/23 08:00 06/04/23 08:46
--- NOTE | 2023-06-04 13:50 | WPDANESPN ---
Anes - Prog Note Post-Op Date/Time: 06/04/23 13:50 Vital Signs: Last Vital Signs Temp 36.6 C 06/04/23 13:20 Pulse 84 06/04/23 13:20 Resp 20 06/04/23 13:20 BP 99/46 L 06/04/23 13:20 Pulse Ox 99 06/04/23 13:20 O2 Del Method Nasal Cannula 06/04/23 09:30 O2 Flow Rate 2 06/04/23 09:30 Pain Score (VAS): 0 I/O: Intake & Output 06/03/23 06/04/23 06/04/23 23:59 07:59 15:59 Intake Total 480 800 240 Balance 480 800 240 Laboratory Tests 06/04/23 05:56 06/04/23 05:55 06/03/23 06/03/23 06/04/23 16:21 20:13 05:55 WBC RBC Hgb Hct MCV MCH MCHC RDW Plt Count MPV Immature Gran % (Auto) Neut % (Auto) Lymph % (Auto) [place] % (Auto) Eos % (Auto) Baso % (Auto) Lymph # (Auto) [place] # (Auto) Eos # (Auto) Baso # (Auto) Abs Immat Gran (auto) Absolute Neuts (auto) Absolute Nucleated RBC Nucleated RBC % Platelet Estimate Hypochromasia Anisocytosis Ovalocytes Schistocytes Sodium 139 Potassium 3.6 Chloride 107 Carbon Dioxide 27 Anion Gap 5 L BUN 18 Creatinine 1.00 Estim Creat Clear Calc 60 Estimated GFR > 60 Glucose 99 POC Capillary Glucose 90 101 Calcium 8.6 Magnesium 2.4 H Total Bilirubin 0.6 AST 18 ALT 17 Alkaline Phosphatase 61 Total Protein 6.0 L Albumin 3.3 L Blood Type Antibody Screen Crossmatch 06/04/23 06/04/23 06/04/23 05:56 08:22 09:11 WBC 8.9 RBC 2.60 L Hgb 6.9 L* Hct 23.6 L MCV 90.8 MCH 26.5 MCHC 29.2 L RDW 16.8 H Plt Count 185 MPV 9.7 Immature Gran % (Auto) 0.5 Neut % (Auto) 78.9 H Lymph % (Auto) 8.9 L [place] % (Auto) 7.2 Eos % (Auto) 4.0 Baso % (Auto) 0.5 Lymph # (Auto) 0.79 L [place] # (Auto) 0.6 Eos # (Auto) 0.4 H Baso # (Auto) 0.0 Abs Immat Gran (auto) 0.04 H Absolute Neuts (auto) 7.0 H Absolute Nucleated RBC 0.0 Nucleated RBC % 0.0 Platelet Estimate Adequate Hypochromasia 1+ Anisocytosis 2+ Ovalocytes 1+ Schistocytes Rare Sodium Potassium Chloride Carbon Dioxide Anion Gap BUN Creatinine Estim Creat Clear Calc Estimated GFR Glucose POC Capillary Glucose 98 Calcium Magnesium Total Bilirubin AST ALT Alkaline Phosphatase Total Protein Albumin Blood Type O Positive Antibody Screen Negative Crossmatch See Detail 06/04/23 11:54 WBC RBC Hgb Hct MCV MCH MCHC RDW Plt Count MPV Immature Gran % (Auto) Neut % (Auto) Lymph % (Auto) [place] % (Auto) Eos % (Auto) Baso % (Auto) Lymph # (Auto) [place] # (Auto) Eos # (Auto) Baso # (Auto) Abs Immat Gran (auto) Absolute Neuts (auto) Absolute Nucleated RBC Nucleated RBC % Platelet Estimate Hypochromasia Anisocytosis Ovalocytes Schistocytes Sodium Potassium Chloride Carbon Dioxide Anion Gap BUN Creatinine Estim Creat Clear Calc Estimated GFR Glucose POC Capillary Glucose 275 H Calcium Magnesium Total Bilirubin AST ALT Alkaline Phosphatase Total Protein Albumin Blood Type Antibody Screen Crossmatch Microbiology 05/29/23 13:00 Blood Blood Culture - Final Streptococcus mitis group 05/29/23 13:00 Blood Blood Culture - Final Patient Feedback: Patient satisfied with anesthetic care.
--- NOTE | 2023-06-04 14:35 | PM.IMPN ---
Progress Note: A&P Assessment and Plan (1) Sepsis: Qualifiers: Sepsis acute organ dysfunction status: unspecified Sepsis type: sepsis due to unspecified organism Qualified Code(s): A41.9 - Sepsis, unspecified organism Code(s): A41.9 - Sepsis, unspecified organism Status: Acute (2) UTI (urinary tract infection): Qualifiers: Urinary tract infection type: site unspecified Code(s): N39.0 - Urinary tract infection, site not specified Status: Acute (3) Anemia: Qualifiers: Anemia type: unspecified type Qualified Code(s): D64.9 - Anemia, unspecified Code(s): D64.9 - Anemia, unspecified Status: Acute (4) Atrial fibrillation: Qualifiers: Atrial fibrillation type: unspecified Qualified Code(s): I48.91 - Unspecified atrial fibrillation Code(s): I48.91 - Unspecified atrial fibrillation Status: Acute (5) COPD (chronic obstructive pulmonary disease): Code(s): J44.9 - Chronic obstructive pulmonary disease, unspecified Status: Acute (6) Diabetes: Qualifiers: Diabetes mellitus type: type 2 Diabetes mellitus manager terminal insulin use: with manager terminal use Diabetes mellitus complication status: without complication Qualified Code(s): E11.9 - Type 2 diabetes mellitus without complications; Z79.4 - terminal worker (current) use of insulin Code(s): E11.9 - Type 2 diabetes mellitus without complications Status: Acute (7) Ischemic cardiomyopathy: Code(s): I25.5 - Ischemic cardiomyopathy Status: Acute (8) RLS (restless legs syndrome): Code(s): G25.81 - Restless legs syndrome Status: Acute Plan 72 y/o M with past medical history of diabetes mellitus, COPD, diastolic dysfunction, ischemic cardiomyopathy presented with generalized weakness and falls. Was found to be in sepsis with tachycardia along with hypotension and severe anemia. Has received a total of 4 units of PRBC during this admission. Was initially in ICU. GI was consulted. COVID, flu, RSV were negative. CT head negative moderate sinusitis noted multifocal large chronic infarctions bilaterally. Chest x-ray with airspace opacities in the lower lung zones consistent with atelectasis versus pneumonia. CT abdomen with any intermediate density bilateral renal masses suspicious for renal cell carcinoma. MRI recommended. There is cholelithiasis and low-density right adrenal mass likely benign adenoma. Chest x-ray with perihilar increased interstitial pattern with bronchial wall thickening which may be due to mild pulmonary edema bronchitis reactive airway disease/asthma. Blood culture was positive for Streptococcus mitis group, urine culture was positive for Gram-negative bacilli, identified as Enterobacter. Repeat blood culture was negative. Was started on IV vancomycin and cefepime, later vancomycin was stopped and continued on ceftriaxone. History of coronary artery disease status post stents on 11/18, was on aspirin, Plavix and Eliquis. 1. Sepsis secondary to acute UTI: Urine culture grew Enterococcus sensitive to ceftriaxone Will continue with ceftriaxone for total 7 days Blood culture seems to be a contaminant 2. Acute anemia: Status post 4 units of PRBC this admission Fecal occult blood was positive Hemoglobin below 7 this morning, will transfuse another unit today Status post EGD with no evidence of bleeding/ulcers Status post colonoscopy, showed colonic polyps which were removed and seemed to be benign Small-bowel follow-through was unremarkable as well Appreciate GI help Continue with PPI Advised to wait for at least a day or 2 before restarting the anticoagulation Will likely have to do a workup for anemia for non GI reasons Will likely benefit from outpatient referral to Hematology 3. History of coronary artery disease+ atrial fibrillation+ cardiomyopathy: Appreciate cardiology help Antiplatelet and anticoagulant has been discont
[2023-06-04] MEDS: cefTRIAXone 2 GM/NS 100 ML 2 GM/100 ML BAG IVPB (14:54)
--- NOTE | 2023-06-04 15:50 | PCRCNOTE ---
Window of time for administration has passed. See next scheduled administration.
[2023-06-04 16:13] LABS: Hematocrit 23.8 % (42.0-52.0); Hemoglobin 7.2 g/dL (14.0-18.0)
[2023-06-04 17:21] LABS: Glucose Point of Care 115 mg/dl (65-105)
[2023-06-04] MEDS: POTASSIUM CHLORIDE 20 MEQ ER TABLET 40 MEQ PO (17:49)
[2023-06-04 21:05] LABS: Glucose Point of Care 117 mg/dl (65-105)
[2023-06-04] MEDS: GABAPENTIN 300 MG CAPSULE 600 MG PO (21:24)
[2023-06-05] VITALS (16 sets, daily range): BP systolic 104–116; BP diastolic 40–57; PULSE 64–101; RESP 16–28; TEMP 36.2–36.4; O2SAT 95–100
[2023-06-05] MEDS: LEVALBUTEROL NEB 1.25 MG/3 ML 0.63 MG INHALATION ×4 (03:06→20:50)
[2023-06-05] MEDS: IPRATROPIUM BR 0.02% INH SOLN 0.5 MG/2.5 ML VIAL INHALATION ×4 (03:07→20:50)
[2023-06-05 06:07] LABS: Basophils Percent Auto 0.4 % (0.2-1.2); Eosinophils Absolute Auto 0.3 K/mm3 (0-0.3); Hematocrit 26.3 % (42.0-52.0); Hemoglobin 7.9 g/dL (14.0-18.0); Immature Granulocyte Absolute 0.04 K/mm3 (0.00-0.031); Immature Granulocyte Percent A 0.4 % (0-0.5); Lymphocytes Absolute Auto 0.78 K/mm3 (0.9-3.2); Lymphocytes Percent Auto 8.5 % (18.3-44.2); Mean Corpuscular Volume 89.8 fl (80-100); Mean Platelet Volume 9.9 fl (7.4-10.4); Monocytes Absolute Auto 0.6 K/mm3 (0.1-0.6); Monocytes Percent Auto 6.1 % (2.6-8.5); Neutrophils Absolute Auto 7.5 K/mm3 (1.3-6.7); Neutrophils Percent Auto 81.6 % (45.5-73.1); Platelet Count Result 176 k/mm3 (150-375); Red Blood Count 2.93 M/mm3 (4.6-6.20); Red Cell Distribution Width 16.8 % (11.5-14.5); White Blood Count 9.2 K/mm3 (4.5-10.0)
[2023-06-05 06:21] LABS: Alanine Aminotransferase 17 U/L (6-50); Albumin Level 3.5 g/dL (3.5-5.1); Alkaline Phosphatase 68 U/L (38-126); Anion Gap 8 mmol/L (8-16); Aspartate Amino Transferase 16 U/L (17-59); Bilirubin,Total 0.7 mg/dL (0.2-1.3); Blood Urea Nitrogen 16 mg/dL (9-20); Calcium 8.9 mg/dL (8.4-10.2); Carbon Dioxide 24 mmol/L (22-30); Chloride 104 mmol/L (98-107); Estimated CRCL calculation 60 ml/min; Estimated Glomerular Filt Rate > 60; Glucose 99 mg/dL (65-110); Magnesium 1.9 mg/dL (1.6-2.3); Potassium 3.5 mmol/L (3.4-5.0); Sodium 136 mmol/L (137-145)
[2023-06-05] MEDS: ACETAMINOPHEN 325 MG TABLET 650 MG PO (07:04)
[2023-06-05 07:49] LABS: Glucose Point of Care 113 mg/dl (65-105)
[2023-06-05] MEDS: PANTOPRAZOLE 40 MG TABLET PO ×2 (09:05→20:13)
[2023-06-05] MEDS: AMIODARONE HCL 200 MG TABLET PO (09:05)
[2023-06-05] MEDS: ATORVASTATIN 40 MG TABLET PO (09:06)
[2023-06-05] MEDS: GABAPENTIN 300 MG CAPSULE PO (09:06)
[2023-06-05] MEDS: NICOTINE (*PBKC) 21 MG PATCH 1 PATCH TRANSDERM (09:07)
[2023-06-05] MEDS: BUDESONIDE RESPULE NEB 0.5 MG/2 ML AMP INHALATION ×2 (10:03→20:50)
[2023-06-05 11:41] LABS: Glucose Point of Care 131 mg/dl (65-105)
--- NOTE | 2023-06-05 12:32 | PM.IMPN ---
Progress Note: A&P Assessment and Plan (1) Sepsis: Qualifiers: Sepsis acute organ dysfunction status: unspecified Sepsis type: sepsis due to unspecified organism Qualified Code(s): A41.9 - Sepsis, unspecified organism Code(s): A41.9 - Sepsis, unspecified organism Status: Acute (2) UTI (urinary tract infection): Qualifiers: Urinary tract infection type: site unspecified Code(s): N39.0 - Urinary tract infection, site not specified Status: Acute (3) Anemia: Qualifiers: Anemia type: unspecified type Qualified Code(s): D64.9 - Anemia, unspecified Code(s): D64.9 - Anemia, unspecified Status: Acute (4) Atrial fibrillation: Qualifiers: Atrial fibrillation type: unspecified Qualified Code(s): I48.91 - Unspecified atrial fibrillation Code(s): I48.91 - Unspecified atrial fibrillation Status: Acute (5) COPD (chronic obstructive pulmonary disease): Code(s): J44.9 - Chronic obstructive pulmonary disease, unspecified Status: Acute (6) Diabetes: Qualifiers: Diabetes mellitus type: type 2 Diabetes mellitus intermediate card tender insulin use: with intermediate card tender use Diabetes mellitus complication status: without complication Qualified Code(s): E11.9 - Type 2 diabetes mellitus without complications; Z79.4 - parts counterman (current) use of insulin Code(s): E11.9 - Type 2 diabetes mellitus without complications Status: Acute (7) Ischemic cardiomyopathy: Code(s): I25.5 - Ischemic cardiomyopathy Status: Acute (8) RLS (restless legs syndrome): Code(s): G25.81 - Restless legs syndrome Status: Acute Plan 72 y/o M with past medical history of diabetes mellitus, COPD, diastolic dysfunction, ischemic cardiomyopathy presented with generalized weakness and falls. Was found to be in sepsis with tachycardia along with hypotension and severe anemia. Has received a total of 4 units of PRBC during this admission. Was initially in ICU. GI was consulted. COVID, flu, RSV were negative. CT head negative moderate sinusitis noted multifocal large chronic infarctions bilaterally. Chest x-ray with airspace opacities in the lower lung zones consistent with atelectasis versus pneumonia. CT abdomen with any intermediate density bilateral renal masses suspicious for renal cell carcinoma. MRI recommended. There is cholelithiasis and low-density right adrenal mass likely benign adenoma. Chest x-ray with perihilar increased interstitial pattern with bronchial wall thickening which may be due to mild pulmonary edema bronchitis reactive airway disease/asthma. Blood culture was positive for Streptococcus mitis group, urine culture was positive for Gram-negative bacilli, identified as Enterobacter. Repeat blood culture was negative. Was started on IV vancomycin and cefepime, later vancomycin was stopped and continued on ceftriaxone. History of coronary artery disease status post stents on 11/18, was on aspirin, Plavix and Eliquis. 1. Sepsis secondary to acute UTI: Urine culture grew Enterococcus sensitive to ceftriaxone Will continue with ceftriaxone for total 7 days Blood culture seems to be a contaminant 2. Acute anemia: Status post 5 units of PRBC this admission Fecal occult blood was positive Status post EGD with no evidence of bleeding/ulcers Status post colonoscopy, showed colonic polyps which were removed and seemed to be benign Small-bowel follow-through was unremarkable as well Appreciate GI help Continue with PPI Advised to wait for at least a day or 2 before restarting the anticoagulation Will likely have to do a workup for anemia for non GI reasons Will likely benefit from outpatient referral to Hematology 3. History of coronary artery disease+ atrial fibrillation+ cardiomyopathy: Appreciate cardiology help Antiplatelet and anticoagulant was discontinued/on hold due to ongoing anemia workup Will resume Plavix today Re
[2023-06-05] MEDS: cefTRIAXone 2 GM/NS 100 ML 2 GM/100 ML BAG IVPB (12:35)
[2023-06-05] MEDS: POTASSIUM CHLORIDE 20 MEQ PACKET (FOR LIQUID) 40 MEQ PO (15:23)
[2023-06-05] MEDS: CLOPIDOGREL BISULFATE 75 MG TABLET PO (15:24)
[2023-06-05 16:32] LABS: Glucose Point of Care 116 mg/dl (65-105)
[2023-06-05] MEDS: FUROSEMIDE INJ 40 MG/4 ML VIAL IV PUSH (20:13)
[2023-06-05] MEDS: SACUBITRIL/VALSARTAN 12-13 MG TABLET 1 TAB PO (20:13)
[2023-06-05] MEDS: GABAPENTIN 300 MG CAPSULE 600 MG PO (20:13)
[2023-06-05 22:35] LABS: Glucose Point of Care 138 mg/dl (65-105)
[2023-06-05] MEDS: ALPRAZolam (*CRX) 0.5 MG TABLET PO (23:17)
[2023-06-06] VITALS (20 sets, daily range): BP systolic 94–101; BP diastolic 40–62; PULSE 73–100; RESP 18–20; TEMP 35.8–36.6; O2SAT 92–99
[2023-06-06] MEDS: LEVALBUTEROL NEB 1.25 MG/3 ML 0.63 MG INHALATION ×4 (03:11→20:31)
[2023-06-06] MEDS: IPRATROPIUM BR 0.02% INH SOLN 0.5 MG/2.5 ML VIAL INHALATION ×4 (03:14→20:31)
[2023-06-06 07:34] LABS: Basophils Percent Auto 0.4 % (0.2-1.2); Eosinophils Absolute Auto 0.2 K/mm3 (0-0.3); Eosinophils Percent Auto 2.6 % (0-4.4); Hematocrit 27.6 % (42.0-52.0); Hemoglobin 8.2 g/dL (14.0-18.0); Immature Granulocyte Absolute 0.04 K/mm3 (0.00-0.031); Immature Granulocyte Percent A 0.5 % (0-0.5); Lymphocytes Absolute Auto 0.91 K/mm3 (0.9-3.2); Lymphocytes Percent Auto 10.9 % (18.3-44.2); Mean Corpuscular HGB Conc 29.7 g/dl (32-36); Mean Corpuscular Hemoglobin 26.5 pg (26-34); Mean Corpuscular Volume 89.3 fl (80-100); Monocytes Absolute Auto 0.7 K/mm3 (0.1-0.6); Monocytes Percent Auto 7.8 % (2.6-8.5); Neutrophils Absolute Auto 6.5 K/mm3 (1.3-6.7); Neutrophils Percent Auto 77.8 % (45.5-73.1); Platelet Count Result 190 k/mm3 (150-375); Red Blood Count 3.09 M/mm3 (4.6-6.20); Red Cell Distribution Width 16.6 % (11.5-14.5); White Blood Count 8.4 K/mm3 (4.5-10.0)
[2023-06-06 07:46] LABS: Alanine Aminotransferase 16 U/L (6-50); Albumin Level 3.8 g/dL (3.5-5.1); Alkaline Phosphatase 68 U/L (38-126); Anion Gap 8 mmol/L (8-16); Aspartate Amino Transferase 16 U/L (17-59); Bilirubin,Total 0.7 mg/dL (0.2-1.3); Blood Urea Nitrogen 12 mg/dL (9-20); Carbon Dioxide 26 mmol/L (22-30); Chloride 103 mmol/L (98-107); Estimated CRCL calculation 58 ml/min; Estimated Glomerular Filt Rate > 60; Glucose 106 mg/dL (65-110); Magnesium 1.9 mg/dL (1.6-2.3); Potassium 3.6 mmol/L (3.4-5.0); Sodium 137 mmol/L (137-145)
[2023-06-06] MEDS: BUDESONIDE RESPULE NEB 0.5 MG/2 ML AMP INHALATION ×2 (07:48→20:31)
[2023-06-06 07:51] LABS: Glucose Point of Care 102 mg/dl (65-105)
[2023-06-06] MEDS: METOPROLOL SUCCINATE EXT REL 12.5 MG TABCR PO (08:41)
[2023-06-06] MEDS: CLOPIDOGREL BISULFATE 75 MG TABLET PO (08:41)
[2023-06-06] MEDS: SACUBITRIL/VALSARTAN 12-13 MG TABLET 1 TAB PO (08:42)
[2023-06-06] MEDS: AMIODARONE HCL 200 MG TABLET PO (08:42)
[2023-06-06] MEDS: PANTOPRAZOLE 40 MG TABLET PO ×2 (08:42→22:07)
[2023-06-06] MEDS: ATORVASTATIN 40 MG TABLET PO (08:42)
[2023-06-06] MEDS: GABAPENTIN 300 MG CAPSULE PO (08:43)
[2023-06-06] MEDS: NICOTINE (*PBKC) 21 MG PATCH 1 PATCH TRANSDERM (08:43)
[2023-06-06 11:53] LABS: Glucose Point of Care 124 mg/dl (65-105)
[2023-06-06] MEDS: cefTRIAXone 2 GM/NS 100 ML 2 GM/100 ML BAG IVPB (12:27)
--- NOTE | 2023-06-06 15:33 | PM.IMPN ---
Progress Note: A&P Assessment and Plan (1) UTI (urinary tract infection): Qualifiers: Urinary tract infection type: site unspecified Code(s): N39.0 - Urinary tract infection, site not specified Status: Acute Assessment and Plan: Enterobacter cloacae To complete 7 days of ceftriaxone 06/07/23 Plans to return home to [place], [place] upon discharge (2) Sepsis: Qualifiers: Sepsis acute organ dysfunction status: unspecified Sepsis type: sepsis due to unspecified organism Qualified Code(s): A41.9 - Sepsis, unspecified organism Code(s): A41.9 - Sepsis, unspecified organism Status: Acute Assessment and Plan: Resolved (3) Anemia: Qualifiers: Anemia type: unspecified type Qualified Code(s): D64.9 - Anemia, unspecified Code(s): D64.9 - Anemia, unspecified Status: Acute Assessment and Plan: 06/06 Hgb 8.2, stable (4) Atrial fibrillation: Qualifiers: Atrial fibrillation type: unspecified Qualified Code(s): I48.91 - Unspecified atrial fibrillation Code(s): I48.91 - Unspecified atrial fibrillation Status: Acute Assessment and Plan: Controlled (5) COPD (chronic obstructive pulmonary disease): Code(s): J44.9 - Chronic obstructive pulmonary disease, unspecified Status: Acute Assessment and Plan: Continue home oxygen upon discharge (6) Diabetes: Qualifiers: Diabetes mellitus type: type 2 Diabetes mellitus senior care insulin use: with senior care use Diabetes mellitus complication status: without complication Qualified Code(s): E11.9 - Type 2 diabetes mellitus without complications; Z79.4 - group home (current) use of insulin Code(s): E11.9 - Type 2 diabetes mellitus without complications Status: Acute Assessment and Plan: 06/06 FBS 102 (7) Ischemic cardiomyopathy: Code(s): I25.5 - Ischemic cardiomyopathy Status: Acute Assessment and Plan: Clinically stable (8) RLS (restless legs syndrome): Code(s): G25.81 - Restless legs syndrome Status: Acute Assessment and Plan: Controlled Subjective Date/time seen: 06/06/23 15:33 Interval history: TOLERATING DIET. DENIED PAIN. DENIED CHEST PAIN OR SHORTNESS OF BREATH. WEARS OXYGEN AT 3 L AT HOME. CURRENTLY WEARING 2 L. DENIED SWELLING. DENIED ABDOMINAL PAIN. DENIED DIARRHEA OR CONSTIPATION. DENIED DIFFICULTY URINATING. DENIED ABNORMAL BLEEDING. Review of Systems Review of Systems: All systems reviewed & are unremarkable except as noted in HPI and below Exam Narrative: General: Pleasantly confused in no acute distress HEENT:? Sclerae nonicteric. Neck:? Supple Respiratory: CTA, NL effort Cardiac:? S1-S2 is normal, and regular rate and rhythm Abdomen:? Soft, nontender, nondistended, BS present, no masses Extremities:? No edema, cyanosis or clubbing. Neuro:? CN symmetric to inspection. Speech clear. Skin:? Chronic venous stasis changes Psych:? Alert. Oriented to person and place, not to year. Objective Data Vital Signs Vital Signs: Vital Signs - 24 hr 06/05/23 16:00 06/05/23 20:53 06/05/23 20:53 Temperature Pulse Rate 89 101 H 101 H Respiratory Rate 18 18 Blood Pressure Pulse Oximetry 96 Oxygen Delivery Nasal Cannula Oxygen Flow Rate 2 06/05/23 22:25 06/06/23 03:15 06/05/23 20:00 Temperature 97.2 F L Pulse Rate 88 92 99 Respiratory Rate 18 18 Blood Pressure 116/57 L Pulse Oximetry 100 Oxygen Delivery Oxygen Flow Rate 06/06/23 00:00 06/06/23 04:40 06/05/23 20:08 Temperature Pulse Rate 96 95 Respiratory Rate Blood Pressure Pulse Oximetry 100 Oxygen Delivery Nasal Cannula Oxygen Flow Rate 2 06/06/23 05:00 06/06/23 06:00 06/06/23 07:48 Temperature 96.4 F L Pulse Rate 95 Respiratory Rate 20 Blood Pressure 101/40 L Pulse Oximetry 96 94 Oxygen Delivery Nasal Ca
[2023-06-06 16:34] LABS: Glucose Point of Care 147 mg/dl (65-105)
[2023-06-06 21:05] LABS: Glucose Point of Care 150 mg/dl (65-105)
[2023-06-06] MEDS: GABAPENTIN 300 MG CAPSULE 600 MG PO (22:07)
[2023-06-07] VITALS (12 sets, daily range): BP systolic 96–124; BP diastolic 50–58; PULSE 70–96; RESP 16–22; TEMP 36.4–36.6; O2SAT 95–100
[2023-06-07] MEDS: LEVALBUTEROL NEB 1.25 MG/3 ML 0.63 MG INHALATION ×3 (02:01→19:24)
[2023-06-07] MEDS: IPRATROPIUM BR 0.02% INH SOLN 0.5 MG/2.5 ML VIAL INHALATION ×3 (02:02→19:24)
[2023-06-07 07:59] LABS: Glucose Point of Care 106 mg/dl (65-105)
[2023-06-07] MEDS: CLOPIDOGREL BISULFATE 75 MG TABLET PO (08:36)
[2023-06-07] MEDS: METOPROLOL SUCCINATE EXT REL 12.5 MG TABCR PO (08:36)
[2023-06-07] MEDS: GABAPENTIN 300 MG CAPSULE PO (08:36)
[2023-06-07] MEDS: NICOTINE (*PBKC) 21 MG PATCH 1 PATCH TRANSDERM (08:37)
[2023-06-07] MEDS: AMIODARONE HCL 200 MG TABLET PO (08:37)
[2023-06-07] MEDS: PANTOPRAZOLE 40 MG TABLET PO ×2 (08:37→21:05)
[2023-06-07] MEDS: ATORVASTATIN 40 MG TABLET PO (08:37)
[2023-06-07 11:18] LABS: Glucose Point of Care 109 mg/dl (65-105)
[2023-06-07] MEDS: cefTRIAXone 2 GM/NS 100 ML 2 GM/100 ML BAG IVPB (12:46)
--- NOTE | 2023-06-07 12:59 | PC.NURSE ---
1257 Patient removed IV. Called MD as to how to proceed as patient has last dose of IV abx scheduled now. MD will get back to me after fully reviewing the patients chart.
--- NOTE | 2023-06-07 13:48 | PM.IMPN ---
Progress Note: A&P Assessment and Plan (1) UTI (urinary tract infection): Qualifiers: Urinary tract infection type: site unspecified Code(s): N39.0 - Urinary tract infection, site not specified Status: Acute Assessment and Plan: uc shows Enterobacter cloacae pt completed 7 days of ceftriaxone 06/07/23 ct abdomen and pelvis shows - 2: Low-density right adrenal mass, likely benign adenoma. 3: Intermediate density bilateral renal masses, suspicious for renal cell carcinoma. 4:? Cholelithiasis mri abdomen is recommended which i will order discharge plan depending on mri results (2) Sepsis: Qualifiers: Sepsis acute organ dysfunction status: unspecified Sepsis type: sepsis due to unspecified organism Qualified Code(s): A41.9 - Sepsis, unspecified organism Code(s): A41.9 - Sepsis, unspecified organism Status: Acute Assessment and Plan: Resolved (3) Anemia: Qualifiers: Anemia type: unspecified type Qualified Code(s): D64.9 - Anemia, unspecified Code(s): D64.9 - Anemia, unspecified Status: Acute Assessment and Plan: hb 8 after blood transfusion (4) Atrial fibrillation: Qualifiers: Atrial fibrillation type: unspecified Qualified Code(s): I48.91 - Unspecified atrial fibrillation Code(s): I48.91 - Unspecified atrial fibrillation Status: Acute Assessment and Plan: Controlled (5) COPD (chronic obstructive pulmonary disease): Code(s): J44.9 - Chronic obstructive pulmonary disease, unspecified Status: Acute Assessment and Plan: Continue home oxygen upon discharge (6) Diabetes: Qualifiers: Diabetes mellitus type: type 2 Diabetes mellitus corn detasseler insulin use: with corn detasseler use Diabetes mellitus complication status: without complication Qualified Code(s): E11.9 - Type 2 diabetes mellitus without complications; Z79.4 - custodial (current) use of insulin Code(s): E11.9 - Type 2 diabetes mellitus without complications Status: Acute Assessment and Plan: chronic and stable (7) Ischemic cardiomyopathy: Code(s): I25.5 - Ischemic cardiomyopathy Status: Acute Assessment and Plan: Clinically stable (8) RLS (restless legs syndrome): Code(s): G25.81 - Restless legs syndrome Status: Acute Assessment and Plan: Controlled Subjective Date/time seen: 06/07/23 13:48 Interval history: 72 y/o M presents here with generalized weakness and falls with PMH of DM, COPD, diastolic dysfunction, HLD, Afib, diverticulitis, ischemic cardiomyopathy, and RLS. pt admitted for sepsis, uti and anaemia unfortunately ct abdomen shows 2: Low-density right adrenal mass, likely benign adenoma. 3: Intermediate density bilateral renal masses, suspicious for renal cell carcinoma. 4:? Cholelithiasis mri abdomen is recommended which i will order Review of Systems Review of Systems: weakness and urinary frequency Exam Narrative: General: Pleasantly confused in no acute distress HEENT:? Sclerae nonicteric. Neck:? Supple Respiratory: CTA, NL effort Cardiac:? S1-S2 is normal, and regular rate and rhythm Abdomen:? Soft, nontender, nondistended, BS present, no masses Extremities:? No edema, cyanosis or clubbing. Neuro:? CN symmetric to inspection. Speech clear. Skin:? Chronic venous stasis changes Psych:? Alert. Oriented to person and place, not to year. Objective Data Vital Signs Vital Signs: Vital Signs - 24 hr 06/06/23 14:02 06/06/23 14:15 06/06/23 14:00 Temperature 36.4 C L Pulse Rate 84 80 93 Respiratory Rate 18 18 18 Blood Pressure 94/62 L Pulse Oximetry 92 Oxygen Delivery Oxygen Flow Rate 06/06/23 20:33 06/06/23 20:33 06/06/23 21:14 Temperature Pulse Rate 90 Respiratory Rate 18 Blood Pressure 96/54 L Pulse Oximetry 96 Oxygen Delivery Nasal Cannula Oxyge
[2023-06-07 16:35] LABS: Glucose Point of Care 116 mg/dl (65-105)
[2023-06-07] MEDS: BUDESONIDE RESPULE NEB 0.5 MG/2 ML AMP INHALATION (19:25)
[2023-06-07 20:21] LABS: Glucose Point of Care 111 mg/dl (65-105)
[2023-06-07] MEDS: GABAPENTIN 300 MG CAPSULE 600 MG PO (21:05)
[2023-06-07] MEDS: ALPRAZolam (*CRX) 0.5 MG TABLET PO (21:09)
[2023-06-08] VITALS (14 sets, daily range): BP systolic 94–104; BP diastolic 42–64; PULSE 82–95; RESP 16–20; TEMP 35.7–36.1; O2SAT 93–100
[2023-06-08] MEDS: LEVALBUTEROL NEB 1.25 MG/3 ML 0.63 MG INHALATION ×4 (01:45→21:15)
[2023-06-08] MEDS: IPRATROPIUM BR 0.02% INH SOLN 0.5 MG/2.5 ML VIAL INHALATION ×4 (01:45→21:15)
[2023-06-08 07:30] LABS: Anion Gap 4 mmol/L (8-16); Blood Urea Nitrogen 13 mg/dL (9-20); Carbon Dioxide 29 mmol/L (22-30); Chloride 104 mmol/L (98-107); Estimated CRCL calculation 60 ml/min; Estimated Glomerular Filt Rate > 60; Glucose 98 mg/dL (65-110); Potassium 3.9 mmol/L (3.4-5.0); Sodium 137 mmol/L (137-145)
[2023-06-08 07:59] LABS: Glucose Point of Care 101 mg/dl (65-105)
[2023-06-08] MEDS: NICOTINE (*PBKC) 21 MG PATCH 1 PATCH TRANSDERM (09:00)
[2023-06-08] MEDS: AMIODARONE HCL 200 MG TABLET PO (09:01)
[2023-06-08] MEDS: CLOPIDOGREL BISULFATE 75 MG TABLET PO (09:01)
[2023-06-08] MEDS: ATORVASTATIN 40 MG TABLET PO (09:01)
[2023-06-08] MEDS: GABAPENTIN 300 MG CAPSULE PO (09:01)
[2023-06-08] MEDS: PANTOPRAZOLE 40 MG TABLET PO ×2 (09:01→21:55)
[2023-06-08] MEDS: METOPROLOL SUCCINATE EXT REL 12.5 MG TABCR PO (09:02)
[2023-06-08] MEDS: BUDESONIDE RESPULE NEB 0.5 MG/2 ML AMP INHALATION ×2 (09:15→21:13)
[2023-06-08] MEDS: SACUBITRIL/VALSARTAN 12-13 MG TABLET 1 TAB PO ×2 (09:24→21:55)
[2023-06-08 11:53] LABS: Glucose Point of Care 139 mg/dl (65-105)
[2023-06-08] MEDS: diazePAM (*CRX) 5 MG TABLET PO (12:02)
[2023-06-08 16:55] LABS: Glucose Point of Care 106 mg/dl (65-105)
--- NOTE | 2023-06-08 18:44 | PM.IMPN ---
Progress Note: A&P Assessment and Plan (1) UTI (urinary tract infection): Qualifiers: Urinary tract infection type: site unspecified Code(s): N39.0 - Urinary tract infection, site not specified Status: Acute Assessment and Plan: uc shows Enterobacter cloacae pt completed 7 days of ceftriaxone 06/07/23 ct abdomen shows Low-density right adrenal mass, likely benign adenoma. Intermediate density bilateral renal masses, suspicious for renal cell carcinoma. Cholelithiasis MRI abdomen is ordered which showed right adrenal adenoma and simple and hemorrhagic cysts the kidneys which are likely benign Urology consult ordered for evaluation of hemorrhagic cysts of kidneys (2) Sepsis: Qualifiers: Sepsis acute organ dysfunction status: unspecified Sepsis type: sepsis due to unspecified organism Qualified Code(s): A41.9 - Sepsis, unspecified organism Code(s): A41.9 - Sepsis, unspecified organism Status: Acute Assessment and Plan: Resolved (3) Anemia: Qualifiers: Anemia type: unspecified type Qualified Code(s): D64.9 - Anemia, unspecified Code(s): D64.9 - Anemia, unspecified Status: Acute Assessment and Plan: hb 8 after blood transfusion (4) Atrial fibrillation: Qualifiers: Atrial fibrillation type: unspecified Qualified Code(s): I48.91 - Unspecified atrial fibrillation Code(s): I48.91 - Unspecified atrial fibrillation Status: Acute Assessment and Plan: Controlled (5) COPD (chronic obstructive pulmonary disease): Code(s): J44.9 - Chronic obstructive pulmonary disease, unspecified Status: Acute Assessment and Plan: Continue home oxygen upon discharge (6) Diabetes: Qualifiers: Diabetes mellitus type: type 2 Diabetes mellitus halfway insulin use: with halfway use Diabetes mellitus complication status: without complication Qualified Code(s): E11.9 - Type 2 diabetes mellitus without complications; Z79.4 - penitentiary (current) use of insulin Code(s): E11.9 - Type 2 diabetes mellitus without complications Status: Acute Assessment and Plan: chronic and stable (7) Ischemic cardiomyopathy: Code(s): I25.5 - Ischemic cardiomyopathy Status: Acute Assessment and Plan: Clinically stable (8) RLS (restless legs syndrome): Code(s): G25.81 - Restless legs syndrome Status: Acute Assessment and Plan: Controlled Plan 72 y/o M presents here with generalized weakness and falls with PMH of DM, COPD, diastolic dysfunction, HLD, Afib, diverticulitis, ischemic cardiomyopathy, and RLS. pt admitted for sepsis, uti and anaemia DC planning in a.m. if he remains stable and cleared by Urology ? Patient seen and examined at bedside during my morning rounds ? Collaborated with patient's nurse at the bedside in detail and addressed all concerns ? Labs, electrolytes, radiology, investigations and test results reviewed ? Consult/Nursing/Ancilliary notes on the chart reviewed and appreciated ? Spoke with patient/family at the bedside and answered all the questions that they had Repeat labs in a.m. Electrolyte replacement as per protocol. Patient will be monitored very closely on the floor. Further recommendations as per the hospital course. Subjective Date/time seen: 06/08/23 18:44 Interval history: Patient lying in bed. Still feels tired and fatigued. Feeling a little better Review of Systems Review of Systems: weakness and urinary frequency All systems reviewed & are unremarkable except as noted in HPI and below Exam Narrative: General: Pleasantly confused in no acute distress HEENT:? Sclerae nonicteric. Neck:? Supple Respiratory: CTA, NL effort Cardiac:? S1-S2 is normal, and regular rate and rhythm Abdomen:? Soft, nontender, nondistended, BS present, no masses Extremities:? No edema, cyan
[2023-06-08 20:43] LABS: Glucose Point of Care 144 mg/dl (65-105)
[2023-06-08] MEDS: ALPRAZolam (*CRX) 0.5 MG TABLET PO (21:55)
[2023-06-08] MEDS: GABAPENTIN 300 MG CAPSULE 600 MG PO (21:55)
[2023-06-09] VITALS (15 sets, daily range): BP systolic 89–130; BP diastolic 43–58; PULSE 72–101; RESP 16–20; TEMP 35.6–36.2; O2SAT 92–100
[2023-06-09] MEDS: IPRATROPIUM BR 0.02% INH SOLN 0.5 MG/2.5 ML VIAL INHALATION ×3 (02:48→21:12)
[2023-06-09] MEDS: LEVALBUTEROL NEB 1.25 MG/3 ML 0.63 MG INHALATION ×3 (02:51→21:12)
[2023-06-09 07:40] LABS: Glucose Point of Care 97 mg/dl (65-105)
[2023-06-09 07:42] LABS: Basophils Percent Auto 0.6 % (0.2-1.2); Eosinophils Absolute Auto 0.2 K/mm3 (0-0.3); Eosinophils Percent Auto 3.1 % (0-4.4); Hemoglobin 8.3 g/dL (14.0-18.0); Immature Granulocyte Absolute 0.04 K/mm3 (0.00-0.031); Immature Granulocyte Percent A 0.6 % (0-0.5); Lymphocytes Absolute Auto 0.83 K/mm3 (0.9-3.2); Lymphocytes Percent Auto 12.4 % (18.3-44.2); Mean Corpuscular HGB Conc 28.6 g/dl (32-36); Mean Corpuscular Hemoglobin 25.9 pg (26-34); Mean Corpuscular Volume 90.6 fl (80-100); Mean Platelet Volume 10.1 fl (7.4-10.4); Monocytes Absolute Auto 0.5 K/mm3 (0.1-0.6); Monocytes Percent Auto 7.3 % (2.6-8.5); Neutrophils Absolute Auto 5.1 K/mm3 (1.3-6.7); Platelet Count Result 204 k/mm3 (150-375); Red Cell Distribution Width 15.8 % (11.5-14.5); White Blood Count 6.7 K/mm3 (4.5-10.0)
[2023-06-09] MEDS: BUDESONIDE RESPULE NEB 0.5 MG/2 ML AMP INHALATION ×2 (07:52→21:12)
[2023-06-09 07:55] LABS: Alanine Aminotransferase 15 U/L (6-50); Albumin Level 3.5 g/dL (3.5-5.1); Alkaline Phosphatase 75 U/L (38-126); Anion Gap 7 mmol/L (8-16); Aspartate Amino Transferase 15 U/L (17-59); Bilirubin,Total 0.7 mg/dL (0.2-1.3); Blood Urea Nitrogen 14 mg/dL (9-20); Carbon Dioxide 27 mmol/L (22-30); Chloride 105 mmol/L (98-107); Estimated CRCL calculation 60 ml/min; Estimated Glomerular Filt Rate > 60; Glucose 96 mg/dL (65-110); Potassium 3.8 mmol/L (3.4-5.0); Sodium 139 mmol/L (137-145)
[2023-06-09] MEDS: ATORVASTATIN 40 MG TABLET PO (09:04)
[2023-06-09] MEDS: AMIODARONE HCL 200 MG TABLET PO (09:04)
[2023-06-09] MEDS: GABAPENTIN 300 MG CAPSULE PO (09:04)
[2023-06-09] MEDS: CLOPIDOGREL BISULFATE 75 MG TABLET PO (09:05)
[2023-06-09] MEDS: METOPROLOL SUCCINATE EXT REL 12.5 MG TABCR PO (09:05)
[2023-06-09] MEDS: PANTOPRAZOLE 40 MG TABLET PO ×2 (09:05→20:11)
[2023-06-09] MEDS: NICOTINE (*PBKC) 21 MG PATCH 1 PATCH TRANSDERM (09:25)
[2023-06-09 11:09] LABS: Glucose Point of Care 113 mg/dl (65-105)
[2023-06-09] MEDS: ACETAMINOPHEN 325 MG TABLET 650 MG PO (12:21)
[2023-06-09] MEDS: SACUBITRIL/VALSARTAN 12-13 MG TABLET 1 TAB PO ×2 (13:16→20:11)
--- NOTE | 2023-06-09 13:23 | WPDURCON ---
Assessment and Plan Assessment and plan (1) Renal cyst: Code(s): N28.1 - Cyst of kidney, acquired Status: Acute Assessment and Plan: Both the 2 cm right renal cyst and 7 in 12 mm left hemorrhagic cysts are benign in nature. Neither these would explain his significant anemia. No further management is required from my standpoint. Urology Consult Note HPI Date Seen: 06/09/23 Time Seen: 13:23 Requesting Physician: Charles Linton MD Primary Care Provider: Kalyan Soto MD Consult Narrative Reason for consult: Renal lesion Narrative: Rolando Moser is a 72 year old male who was actually seen in the office back in January of 2022. At that time he was seen for indeterminate renal lesions. Patient never followed up. He was now admitted with weakness and found to have severe anemia. Etiology is unclear. A CT scan on admission again revealed these indeterminate lesions. MRI obtained on 06/08/2023 describes a 7 mm and 12 mm left hemorrhagic cyst and a 2 cm right renal cyst. These are benign in nature and none of which would explain his anemia. They require no further evaluation or management at this time. Review of Systems Review of Systems: All systems reviewed & are unremarkable except as noted in HPI and below PMFSH Past Medical History Medical History Anxiety Ataxia Atrial fibrillation Diastolic dysfunction Diverticulitis Essential hypertension Ischemic cardiomyopathy Leg weakness, bilateral Mixed hyperlipidemia Post covid-19 condition, unspecified Post-traumatic stress disorder, unspecified Restless leg syndrome Tobacco abuse Surgical History Surgical History History of cystoscopy History of exploratory laparotomy With adhesiolysis and splenic flexure takedown. Also previous enterotomy with removal of foreign body (presumed clove of garlic). History of open sigmoidectomy For diverticulitis. History of tonsillectomy Family History Family History Mother Hypertension Family history of diabetes mellitus in first degree relative Depression Family history of cataracts Family history of arthritis Family history of hearing loss Father Family history of malignant neoplasm Other Cerebrovascular accident Social History Social History Social History: Surrogate decision maker: Barbara Moser, . Code status: Full code. Smoking packs per day: 1.5 Smoking cigarettes per day: 30.0 Years smoked: 55 Smoking pack-years: 82.50 Smoking status: Current every day smoker Tobacco type: cigarettes Second hand tobacco smoke exposure: Yes Smoking end date: 11/14/22 Additional smoking assessment comments: Patients at bedside states patient is currently smoking. 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
[2023-06-09 16:39] LABS: Glucose Point of Care 122 mg/dl (65-105)
--- NOTE | 2023-06-09 18:37 | PM.IMPN ---
Progress Note: A&P Assessment and Plan (1) UTI (urinary tract infection): Qualifiers: Urinary tract infection type: site unspecified Code(s): N39.0 - Urinary tract infection, site not specified Status: Acute Assessment and Plan: uc shows Enterobacter cloacae pt completed 7 days of ceftriaxone 06/07/23 ct abdomen shows Low-density right adrenal mass, likely benign adenoma. Intermediate density bilateral renal masses, suspicious for renal cell carcinoma. Cholelithiasis MRI abdomen is ordered which showed right adrenal adenoma and simple and hemorrhagic cysts the kidneys which are likely benign Urology consult ordered for evaluation of hemorrhagic cysts of kidneys of who the cleared benign with the no further urological management. (2) Sepsis: Qualifiers: Sepsis acute organ dysfunction status: unspecified Sepsis type: sepsis due to unspecified organism Qualified Code(s): A41.9 - Sepsis, unspecified organism Code(s): A41.9 - Sepsis, unspecified organism Status: Acute Assessment and Plan: Resolved (3) Anemia: Qualifiers: Anemia type: unspecified type Qualified Code(s): D64.9 - Anemia, unspecified Code(s): D64.9 - Anemia, unspecified Status: Acute Assessment and Plan: hb 8 after blood transfusion (4) Atrial fibrillation: Qualifiers: Atrial fibrillation type: unspecified Qualified Code(s): I48.91 - Unspecified atrial fibrillation Code(s): I48.91 - Unspecified atrial fibrillation Status: Acute Assessment and Plan: Controlled (5) COPD (chronic obstructive pulmonary disease): Code(s): J44.9 - Chronic obstructive pulmonary disease, unspecified Status: Acute Assessment and Plan: Continue home oxygen upon discharge (6) Diabetes: Qualifiers: Diabetes mellitus type: type 2 Diabetes mellitus long-term insulin use: with long-term use Diabetes mellitus complication status: without complication Qualified Code(s): E11.9 - Type 2 diabetes mellitus without complications; Z79.4 - long term care social worker (current) use of insulin Code(s): E11.9 - Type 2 diabetes mellitus without complications Status: Acute Assessment and Plan: chronic and stable (7) Ischemic cardiomyopathy: Code(s): I25.5 - Ischemic cardiomyopathy Status: Acute Assessment and Plan: Clinically stable Cardiology to adjust meds given his hypotension (8) RLS (restless legs syndrome): Code(s): G25.81 - Restless legs syndrome Status: Acute Assessment and Plan: Controlled Plan 72 y/o M presents here with generalized weakness and falls with PMH of DM, COPD, diastolic dysfunction, HLD, Afib, diverticulitis, ischemic cardiomyopathy, and RLS. pt admitted for sepsis, uti and anaemia Cardiology to adjust his meds causing hypotension. DC patient home in a.m. if he remains stable ? Patient seen and examined at bedside during my morning rounds ? Collaborated with patient's nurse at the bedside in detail and addressed all concerns ? Labs, electrolytes, radiology, investigations and test results reviewed ? Consult/Nursing/Ancilliary notes on the chart reviewed and appreciated ? Spoke with patient/family at the bedside and answered all the questions that they had Repeat labs in a.m. Electrolyte replacement as per protocol. Patient will be monitored very closely on the floor. Further recommendations as per the hospital course. Time Spent With Patient Time with patient: 25 - 35 minutes Subjective Date/time seen: 06/09/23 18:37 Interval history: Patient feeling weak and tired. Having SBP below 100 and cardiology reconsulted to adjust meds. Review of Systems Review of Systems: weakness and urinary frequency All systems reviewed & are unremarkable except as noted in HPI and below Exam Narrative: General: Pleasantly confused in no acute
[2023-06-09] MEDS: ALPRAZolam (*CRX) 0.5 MG TABLET PO (20:11)
[2023-06-09 20:27] LABS: Glucose Point of Care 137 mg/dl (65-105)
[2023-06-10] VITALS (8 sets, daily range): BP systolic 104–120; BP diastolic 46–58; PULSE 74–92; RESP 16–18; TEMP 36.3; O2SAT 92–95
[2023-06-10 07:23] LABS: Basophils Percent Auto 0.4 % (0.2-1.2); Eosinophils Absolute Auto 0.2 K/mm3 (0-0.3); Eosinophils Percent Auto 2.7 % (0-4.4); Hematocrit 29.3 % (42.0-52.0); Hemoglobin 8.7 g/dL (14.0-18.0); Immature Granulocyte Absolute 0.05 K/mm3 (0.00-0.031); Immature Granulocyte Percent A 0.6 % (0-0.5); Lymphocytes Absolute Auto 0.96 K/mm3 (0.9-3.2); Lymphocytes Percent Auto 11.3 % (18.3-44.2); Mean Corpuscular HGB Conc 29.7 g/dl (32-36); Mean Corpuscular Hemoglobin 26.2 pg (26-34); Mean Corpuscular Volume 88.3 fl (80-100); Mean Platelet Volume 10.2 fl (7.4-10.4); Monocytes Absolute Auto 0.6 K/mm3 (0.1-0.6); Monocytes Percent Auto 6.8 % (2.6-8.5); Neutrophils Absolute Auto 6.7 K/mm3 (1.3-6.7); Neutrophils Percent Auto 78.2 % (45.5-73.1); Platelet Count Result 243 k/mm3 (150-375); Red Blood Count 3.32 M/mm3 (4.6-6.20); Red Cell Distribution Width 15.7 % (11.5-14.5); White Blood Count 8.5 K/mm3 (4.5-10.0)
[2023-06-10 07:29] LABS: Alanine Aminotransferase 13 U/L (6-50); Albumin Level 3.7 g/dL (3.5-5.1); Alkaline Phosphatase 80 U/L (38-126); Anion Gap 5 mmol/L (8-16); Aspartate Amino Transferase 15 U/L (17-59); Bilirubin,Total 0.8 mg/dL (0.2-1.3); Blood Urea Nitrogen 15 mg/dL (9-20); Calcium 9.2 mg/dL (8.4-10.2); Carbon Dioxide 28 mmol/L (22-30); Chloride 104 mmol/L (98-107); Estimated CRCL calculation 55 ml/min; Estimated Glomerular Filt Rate > 60; Glucose 97 mg/dL (65-110); Potassium 4.1 mmol/L (3.4-5.0); Sodium 137 mmol/L (137-145)
[2023-06-10 07:31] LABS: Glucose Point of Care 101 mg/dl (65-105)
[2023-06-10 08:34] LABS: Anisocytosis 1+ (NORMAL); Hypochromasia 1+ (NORMAL); Ovalocytes 1+ (NORMAL); Platelet Estimate Adequate (Adequate)
[2023-06-10 08:35] LABS: Schistocytes Rare (NORMAL)
[2023-06-10] MEDS: ATORVASTATIN 40 MG TABLET PO (09:10)
[2023-06-10] MEDS: PANTOPRAZOLE 40 MG TABLET PO (09:10)
[2023-06-10] MEDS: AMIODARONE HCL 200 MG TABLET PO (09:10)
[2023-06-10] MEDS: CLOPIDOGREL BISULFATE 75 MG TABLET PO (09:11)
[2023-06-10] MEDS: METOPROLOL SUCCINATE EXT REL 12.5 MG TABCR PO (09:11)
[2023-06-10] MEDS: GABAPENTIN 300 MG CAPSULE PO (09:11)
[2023-06-10] MEDS: NICOTINE (*PBKC) 21 MG PATCH 1 PATCH TRANSDERM (09:13)
[2023-06-10] MEDS: SACUBITRIL/VALSARTAN 12-13 MG TABLET 1 TAB PO (09:13)
[2023-06-10] MEDS: BUDESONIDE RESPULE NEB 0.5 MG/2 ML AMP INHALATION (09:27)
[2023-06-10] MEDS: IPRATROPIUM BR 0.02% INH SOLN 0.5 MG/2.5 ML VIAL INHALATION (09:27)
[2023-06-10] MEDS: LEVALBUTEROL NEB 1.25 MG/3 ML 0.63 MG INHALATION (09:28)
[2023-06-10 11:17] LABS: Glucose Point of Care 124 mg/dl (65-105)
[2023-06-10] MEDS: APIXABAN 5 MG TABLET PO (12:45)
--- NOTE | 2023-06-10 13:09 | PM.DS ---
DS: Admitting Diagnosis Discharge Date 06/10/2023: Admitting Diagnosis Sepsis UTI Weakness with multiple falls DS: Discharge Diagnosis Discharge Diagnosis (1) Type 2 diabetes mellitus: Code(s): E11.9 - Type 2 diabetes mellitus without complications Status: Acute (2) Paroxysmal atrial fibrillation: Code(s): I48.0 - Paroxysmal atrial fibrillation Status: Acute (3) CAD (coronary artery disease): Code(s): I25.10 - Atherosclerotic heart disease of [place] coronary artery without angina pectoris Status: Acute (4) Occult blood in stools: Code(s): R19.5 - Other fecal abnormalities Status: Acute (5) UTI (urinary tract infection): Qualifiers: Urinary tract infection type: site unspecified Code(s): N39.0 - Urinary tract infection, site not specified Status: Acute (6) Heart failure: Code(s): I50.9 - Heart failure, unspecified Status: Acute (7) Anemia: Qualifiers: Anemia type: unspecified type Qualified Code(s): D64.9 - Anemia, unspecified Code(s): D64.9 - Anemia, unspecified Status: Acute (8) Neuropathy: Code(s): G62.9 - Polyneuropathy, unspecified Status: Acute (9) Post covid-19 condition, unspecified: Code(s): U09.9 - Post COVID-19 condition, unspecified Status: Acute (10) Leg weakness, bilateral: Code(s): R29.898 - Other symptoms and signs involving the musculoskeletal system Status: Acute (11) Ataxia: Code(s): R27.0 - Ataxia, unspecified Status: Acute (12) Diabetes: Qualifiers: Diabetes mellitus type: type 2 Diabetes mellitus it application architect insulin use: with intermediate use Diabetes mellitus complication status: without complication Qualified Code(s): E11.9 - Type 2 diabetes mellitus without complications; Z79.4 - correction (current) use of insulin Code(s): E11.9 - Type 2 diabetes mellitus without complications Status: Acute (13) Ischemic cardiomyopathy: Code(s): I25.5 - Ischemic cardiomyopathy Status: Acute (14) Atrial fibrillation: Qualifiers: Atrial fibrillation type: unspecified Qualified Code(s): I48.91 - Unspecified atrial fibrillation Code(s): I48.91 - Unspecified atrial fibrillation Status: Acute (15) Diastolic dysfunction: Code(s): I51.89 - Other ill-defined heart diseases Status: Acute (16) Aortic valve stenosis: Qualifiers: Cardiac valve disease etiology: etiology unspecified Qualified Code(s): I35.0 - Nonrheumatic aortic (valve) stenosis Code(s): I35.0 - Nonrheumatic aortic (valve) stenosis Status: Acute (17) Essential hypertension: Code(s): I10 - Essential (primary) hypertension Status: Acute (18) COPD (chronic obstructive pulmonary disease): Code(s): J44.9 - Chronic obstructive pulmonary disease, unspecified Status: Acute (19) RLS (restless legs syndrome): Code(s): G25.81 - Restless legs syndrome Status: Acute (20) Mixed hyperlipidemia: Code(s): E78.2 - Mixed hyperlipidemia Status: Acute (21) Anxiety: Code(s): F41.9 - Anxiety disorder, unspecified Status: Acute (22) COVID: Code(s): U07.1 - COVID-19 Status: Acute (23) Chronic back pain: Code(s): M54.9 - Dorsalgia, unspecified; G89.29 - Other chronic pain Status: Acute (24) Multiple falls: Code(s): R29.6 - Repeated falls Status: Acute (25) Post-traumatic stress disorder, unspecified: Code(s): F43.10 - Post-traumatic stress disorder, unspecified Status: Acute (26) Tobacco abuse: Code(s): Z72.0 - Tobacco use Status: Acute DS: Summary Hospital Course Reason for hospitalization: Patient admitted with generalized weakness and recurrent falls from home. Workup was done which showed sepsis with UTI Hospital Course: H&P: HPI History of Present
== END 2023-06-10 14:00 | disposition home health service (06) | DRG 872 ==
LOC: ANHED 12:37 → ANHIMU 17:31 → ANHICU 20:01 → ANH3MEDSUR 05-30 18:52
PROVIDERS: Emergency Medicine; Family Medicine; Internal Medicine; Internal Medicine Gastroenterology; Student in an Organized Health Care Education/Training Program; Admitting Provider Hospitalist; Emergency Provider Student in an Organized Health Care Education/Training Program; PCP Family Medicine; Visit Provider Family Medicine
PROC: 0DJ08ZZ Inspection of Upper Intestinal Tract, Via Natural or Artificial Opening Endoscopic (ICD-10-PCS; CPT 43235; principal; 2023-06-01 14:45)
PROC: 0DJD8ZZ Inspection of Lower Intestinal Tract, Via Natural or Artificial Opening Endoscopic (ICD-10-PCS; CPT 45378; principal; 2023-06-03 14:30)
DX: A41.9 Sepsis, unspecified organism (principal); I50.32 Chronic diastolic (congestive) heart failure; N39.0 Urinary tract infection, site not specified; J44.9 Chronic obstructive pulmonary disease, unspecified; F17.210 Nicotine dependence, cigarettes, uncomplicated; I48.0 Paroxysmal atrial fibrillation; G25.81 Restless legs syndrome; I11.0 Hypertensive heart disease with heart failure; F41.9 Anxiety disorder, unspecified; I25.10 Atherosclerotic heart disease of native coronary artery without angina pectoris; E11.9 Type 2 diabetes mellitus without complications; I25.5 Ischemic cardiomyopathy; D12.3 Benign neoplasm of transverse colon; D12.5 Benign neoplasm of sigmoid colon; D64.9 Anemia, unspecified; D12.2 Benign neoplasm of ascending colon; R19.5 Other fecal abnormalities; E78.5 Hyperlipidemia, unspecified; R27.0 Ataxia, unspecified; N28.1 Cyst of kidney, acquired; E87.6 Hypokalemia; D35.01 Benign neoplasm of right adrenal gland; B96.89 Other specified bacterial agents as the cause of diseases classified elsewhere; Z79.82 Long term (current) use of aspirin; Z79.01 Long term (current) use of anticoagulants; Z90.49 Acquired absence of other specified parts of digestive tract; Z79.4 Long term (current) use of insulin; Z86.73 Personal history of transient ischemic attack (TIA), and cerebral infarction without residual deficits; Z79.02 Long term (current) use of antithrombotics/antiplatelets; Z95.5 Presence of coronary angioplasty implant and graft; Z20.822 Contact with and (suspected) exposure to COVID-19; Z86.16 Personal history of COVID-19
CPT/HCPCS: 36415; 36430; 70450; 71045; 74177; 74183; 74240; 74248; 80048; 80053; 80202; 81001; 82607; 82746; 82948; 83540; 83550; 83605; 83735; 84100; 85014; 85018; 85025; 85027; 85610; 85730; 86850; 86900; 86901; 86920; 86923; 87040; 87077; 87086; 87088; 87186; 87637; 87641; 88305; 93005; 94640; 96365; 96375; 99285; A9270; A9577; C9113; J0692; J0696; J1815; J1940; J2060; J2371; J2704; J3370; J3480; J7030; J7040; J7050; J7120; P9016; P9047; Q9967

== ENCOUNTER 2023-06-24 13:53 | Outpatient (CLI) | payer MEDICARE, SELFPAY ==
[2023-06-24 14:23] LABS: Hematocrit 30.3 % (42.0-52.0); Hemoglobin 8.6 g/dL (14.0-18.0); Mean Corpuscular HGB Conc 28.4 g/dl (32-36); Mean Corpuscular Hemoglobin 24.1 pg (26-34); Mean Corpuscular Volume 84.9 fl (80-100); Mean Platelet Volume 9.9 fl (7.4-10.4); Platelet Count Result 173 k/mm3 (150-375); Red Blood Count 3.57 M/mm3 (4.6-6.20); Red Cell Distribution Width 16.7 % (11.5-14.5); White Blood Count 4.7 K/mm3 (4.5-10.0)
[2023-06-24 14:35] LABS: Alanine Aminotransferase 13 U/L (6-50); Alkaline Phosphatase 89 U/L (38-126); Anion Gap 9 mmol/L (8-16); Aspartate Amino Transferase 19 U/L (17-59); Bilirubin,Total 0.7 mg/dL (0.2-1.3); Blood Urea Nitrogen 16 mg/dL (9-20); Calcium 9.2 mg/dL (8.4-10.2); Carbon Dioxide 27 mmol/L (22-30); Chloride 104 mmol/L (98-107); Estimated Glomerular Filt Rate 59; Glucose 95 mg/dL (65-110); Potassium 3.2 mmol/L (3.4-5.0); Sodium 140 mmol/L (137-145)
[2023-06-24 14:48] LABS: Iron 26 ug/dL (49-181)
[2023-06-24 14:57] LABS: Percent Iron Saturation 7 % (20-50)
[2023-06-24 15:39] LABS: Folic Acid 12.6 ng/mL (2.76->20)
== END 2023-06-24 13:54 | disposition home or self-care (01) ==
LOC: ANHLAB 13:55
PROVIDERS: PCP Family Medicine; Visit Provider Nurse Practitioner Family
DX: D64.9 Anemia, unspecified (principal)
CPT/HCPCS: 36415; 80053; 82607; 82728; 82746; 83540; 83550; 85027

== ENCOUNTER 2023-07-23 15:19 | Outpatient (CLI) | payer MEDICARE, SELFPAY ==
[2023-07-23 15:37] LABS: Basophils Percent Auto 0.3 % (0.2-1.2); Eosinophils Absolute Auto 0.2 K/mm3 (0-0.3); Eosinophils Percent Auto 2.5 % (0-4.4); Hematocrit 39.1 % (42.0-52.0); Hemoglobin 11.3 g/dL (14.0-18.0); Immature Granulocyte Absolute 0.02 K/mm3 (0.00-0.031); Immature Granulocyte Percent A 0.3 % (0-0.5); Lymphocytes Absolute Auto 0.96 K/mm3 (0.9-3.2); Lymphocytes Percent Auto 13.2 % (18.3-44.2); Mean Corpuscular HGB Conc 28.9 g/dl (32-36); Mean Corpuscular Hemoglobin 25.8 pg (26-34); Mean Corpuscular Volume 89.3 fl (80-100); Mean Platelet Volume 9.7 fl (7.4-10.4); Monocytes Absolute Auto 0.6 K/mm3 (0.1-0.6); Monocytes Percent Auto 8.1 % (2.6-8.5); Neutrophils Absolute Auto 5.5 K/mm3 (1.3-6.7); Neutrophils Percent Auto 75.6 % (45.5-73.1); Platelet Count Result 205 k/mm3 (150-375); Red Blood Count 4.38 M/mm3 (4.6-6.20); Red Cell Distribution Width 19.9 % (11.5-14.5); White Blood Count 7.3 K/mm3 (4.5-10.0)
[2023-07-23 15:41] LABS: Anisocytosis 1+ (NORMAL); Hypochromasia 1+ (NORMAL); Microcytosis 1+ (NORMAL); Ovalocytes 1+ (NORMAL); Platelet Estimate Adequate (Adequate); Schistocytes None Seen (NORMAL)
[2023-07-23 15:42] LABS: Poikilocytosis 1+ (NORMAL)
[2023-07-23 16:28] LABS: Iron 75 ug/dL (49-181)
[2023-07-23 16:30] LABS: Alanine Aminotransferase 11 U/L (6-50); Alkaline Phosphatase 75 U/L (38-126); Anion Gap 7 mmol/L (8-16); Aspartate Amino Transferase 21 U/L (17-59); Bilirubin,Total 0.6 mg/dL (0.2-1.3); Blood Urea Nitrogen 23 mg/dL (9-20); Carbon Dioxide 31 mmol/L (22-30); Chloride 104 mmol/L (98-107); Estimated Glomerular Filt Rate > 60; Glucose 88 mg/dL (65-110); Potassium 4.1 mmol/L (3.4-5.0); Sodium 142 mmol/L (137-145)
[2023-07-23 16:42] LABS: Percent Iron Saturation 19 % (20-50)
[2023-07-23 17:37] LABS: Folic Acid 14.3 ng/mL (2.76->20)
[2023-07-26 11:52] LABS: Methylmalonic Acid 502 nmol/L (87-318)
[2023-07-26 13:16] LABS: Albumin 4.1 g/dL (3.8-4.8); Alpha 1 Globulin 0.3 g/dL (0.2-0.3); Alpha 2 Globulin 0.9 g/dL (0.5-0.9); Beta 1 Globulin 0.4 g/dL (0.4-0.6); Gamma Globulin 0.8 g/dL (0.8-1.7); Protein, Total 6.8 g/dL (6.1-8.1)
[2023-07-30 13:19] LABS: Soluble Transferrin Receptor 4.27 mg/L (0.76-1.76)
== END 2023-07-23 15:20 | disposition home or self-care (01) ==
LOC: ANHLAB 15:20
PROVIDERS: PCP Family Medicine; Visit Provider Internal Medicine Hematology & Oncology
DX: D64.9 Anemia, unspecified (principal)
CPT/HCPCS: 36415; 80053; 82607; 82728; 82746; 83540; 83550; 83921; 84155; 84165; 84238; 85025

== ENCOUNTER 2023-08-24 13:38 | Emergency (ER) | payer MEDICARE, SELFPAY ==
[2023-08-24 13:48] VITALS: BP 108/41; PULSE 75; RESP 16; TEMP 36.6; O2SAT 100
--- NOTE | 2023-08-24 15:43 | PC.NURSE ---
pt left d/t wait time, will call ent at [facility]
== END 2023-08-24 16:18 | disposition left against medical advice (07) ==
PROVIDERS: PCP Family Medicine
DX: R04.0 Epistaxis (principal)
CPT/HCPCS: 99199

== ENCOUNTER 2023-09-17 14:55 | Outpatient (CLI) | payer MEDICARE, SELFPAY ==
--- NOTE | ~2023-09-17 | US_ITS ---
EXAMINATION: US carotid duplex BI DATE: 09/17/2023 16:16 INDICATION: Suspected carotid stenosis TECHNIQUE: Grayscale, color Doppler, and pulsed Doppler images of the cervical carotid arteries were obtained. The degree of vessel stenosis is placed in one of the following categories: normal, <50%, 5 0-69%, >=70% but less than near-occlusion, near-occlusion, or total occlusion. Note that percent sten osis relative to normal distal artery lumen diameter is indirectly measured from velocity measurement s as described by Miach, et al. Radiology 2003; 229:[id number]. COMPARISON: None. FINDINGS: RIGHT: The right common carotid artery (CCA) peak systolic velocity (PSV) is 72 cm/s. No flow identified in the right internal carotid artery (ICA) consistent with complete occlusion. The external carotid shankar ry (ECA) PSV is 368 cm/s. There is antegrade flow in the right vertebral artery. LEFT: The left CCA PSV is 42 cm/s with high resistance waveform with transient flow reversal. The left ICA PSV is 25 cm/s. The left ICA EDV is 38 cm/s. The left ICA/CCA PSV ratio is 6. Grayscale and color Dop pler images suggest a near occlusion stenosis from plaque in the ICA with low velocity flow in the in ternal carotid artery and high resistance waveform with transient for reversible and the more proxima l common carotid artery. No flow identified in the right external carotid artery consistent with occl usion. There is antegrade flow in the left vertebral artery. IMPRESSION: 1. Complete occlusion of the right internal carotid artery. 2. Likely near occlusion stenosis in the left internal carotid artery. 3. Interpretation on the left is complicated by the large amount of shadowing atherosclerotic plaque and limited flow in what appears to be the internal carotid artery. There remains a possibility that the identity views of the left internal carotid and external carotid arteries have been reversed. Woshraddha rahman consider carotid CT angiogram for more definitive determination. Reviewed, dictated and finalized at location A. IMPRESSION: 1. Complete occlusion of the right internal carotid artery. 2. Likely near occlusion stenosis in the left internal carotid artery. 3. Interpretation on the left is complicated by the large amount of shadowing a therosclerotic plaque and limited flow in what appears to be the internal carot id artery. There remains a possibility that the identity views of the left inte rnal carotid and external carotid arteries have been reversed. Would consider c arotid CT angiogram for more definitive determination.
== END 2023-09-17 14:56 | disposition home or self-care (01) ==
PROVIDERS: PCP Family Medicine
DX: I65.23 Occlusion and stenosis of bilateral carotid arteries (principal)
CPT/HCPCS: 93880

== ENCOUNTER 2023-09-23 11:59 | Outpatient (CLI) | payer MEDICARE, SELFPAY ==
[2023-09-23 12:40] LABS: Basophils Percent Auto 0.5 % (0.2-1.2); Eosinophils Absolute Auto 0.2 K/mm3 (0-0.3); Eosinophils Percent Auto 1.7 % (0-4.4); Hematocrit 44.6 % (42.0-52.0); Hemoglobin 14.4 g/dL (14.0-18.0); Immature Granulocyte Absolute 0.04 K/mm3 (0.00-0.031); Immature Granulocyte Percent A 0.5 % (0-0.5); Lymphocytes Absolute Auto 0.97 K/mm3 (0.9-3.2); Lymphocytes Percent Auto 11.1 % (18.3-44.2); Mean Corpuscular HGB Conc 32.3 g/dl (32-36); Mean Corpuscular Hemoglobin 30.5 pg (26-34); Mean Corpuscular Volume 94.5 fl (80-100); Mean Platelet Volume 9.6 fl (7.4-10.4); Monocytes Absolute Auto 0.6 K/mm3 (0.1-0.6); Neutrophils Percent Auto 79.2 % (45.5-73.1); Platelet Count Result 150 k/mm3 (150-375); Red Blood Count 4.72 M/mm3 (4.6-6.20); White Blood Count 8.8 K/mm3 (4.5-10.0)
[2023-09-23 12:47] LABS: Alanine Aminotransferase 14 U/L (6-50); Albumin Level 3.9 g/dL (3.5-5.1); Alkaline Phosphatase 61 U/L (38-126); Anion Gap 6 mmol/L (4-12); Aspartate Amino Transferase 18 U/L (17-59); Bilirubin,Total 0.5 mg/dL (0.2-1.3); Blood Urea Nitrogen 28 mg/dL (9-20); Calcium 9.1 mg/dL (8.4-10.2); Carbon Dioxide 29 mmol/L (22-30); Chloride 105 mmol/L (98-107); Estimated Glomerular Filt Rate > 60; Glucose 112 mg/dL (65-110); Potassium 3.7 mmol/L (3.4-5.0); Sodium 140 mmol/L (137-145)
== END 2023-09-23 12:00 | disposition home or self-care (01) ==
LOC: ANHLAB 12:04
PROVIDERS: PCP Family Medicine; Visit Provider Internal Medicine Cardiovascular Disease
DX: I25.5 Ischemic cardiomyopathy (principal)
CPT/HCPCS: 36415; 80053; 85025

== ENCOUNTER 2023-11-02 10:41 | Outpatient (CLI) | payer MEDICARE, SELFPAY ==
[2023-11-02 12:08] LABS: Hematocrit 43.3 % (42.0-52.0); Hemoglobin 14.1 g/dL (14.0-18.0); Mean Corpuscular HGB Conc 32.6 g/dl (32-36); Mean Corpuscular Hemoglobin 31.5 pg (26-34); Mean Corpuscular Volume 96.9 fl (80-100); Mean Platelet Volume 9.9 fl (7.4-10.4); Platelet Count Result 162 k/mm3 (150-375); Red Blood Count 4.47 M/mm3 (4.6-6.20); Red Cell Distribution Width 14.4 % (11.5-14.5); White Blood Count 8.6 K/mm3 (4.5-10.0)
[2023-11-02 12:56] LABS: Iron 285 ug/dL (49-181)
[2023-11-02 13:05] LABS: Percent Iron Saturation 96 % (20-50)
[2023-11-02 13:55] LABS: Folic Acid 13.5 ng/mL (2.76->20)
== END 2023-11-02 10:42 | disposition home or self-care (01) ==
PROVIDERS: PCP Family Medicine; Visit Provider Internal Medicine Hematology & Oncology
DX: D64.9 Anemia, unspecified (principal)
CPT/HCPCS: 36415; 82607; 82728; 82746; 83540; 83550; 85027

== ENCOUNTER 2024-10-14 09:43 | Outpatient (CLI) | payer MEDICARE, SELFPAY ==
--- OUTSIDE RECORDS SUMMARY | 2024-10-14 09:47 | XMS_ITS | Clinical Summary ---
Author Organization [facility] Address [address] [address] Phone Care Team Providers Care Woodworking Machine Operator Name Role Phone Kalyan Soto MD Primary Care Provider [phone] Medications ALPRAZolam (XANAX) 0.5 MG tablet 10/26/2014 Active simvastatin (ZOCOR) 40 MG tablet 10/26/2014 Active amLODIPine (NORVASC) 10 MG tablet 10/26/2014 Active PARoxetine (PAXIL) 30 MG tablet 10/26/2014 Active potassium chloride (KLOR-CON) 10 MEQ CR tablet 1 daily 12 05/02/2014 Activ e potassium chloride (KLOR-CON) 10 MEQ CR tablet 2 daily 12 10/06/2014 Activ e metoprolol tartrate (LOPRESSOR) 50 MG tablet 10/26/2014 Active potassium chloride (KLOR-CON M10) 10 MEQ CR tablet TAKE 2 TABLETS BY MOUTH DAILY 4 11/20/2015 Active bimatoprost (LUMIGAN) 0.01 % ophthalmic drops 10/26/2014 Active Active Problems Problem Noted Date Diagnosed Date Cystic kidney disease 03/06/2014 Overview (09/11/2018): Converted unresolved ICD9, potential mismatch. Essential (primary) hypertension 03/06/2014 Other specified disorder of adrenal gland 2013 Overview (09/11/2018): Converted unresolved ICD9, potential mismatch. Hyperlipidemia 04/15/2011 Family History Medical History Relation Comments Hypertensive disorder Mother Cerebrovascular accident Relative Anemia Neg Hx Coronary arteriosclerosis Neg Hx Diabetes mellitus Neg Hx Dyslipidemia Neg Hx Heart disease Neg Hx Kidney disease Neg Hx Kidney stone Neg Hx Malignant neoplastic disease Neg Hx Relation Status Comments Mother Relative Social History Tobacco Use Types Packs/Day Years Used Date Smoking Tobacco: Never Assessed Sex and Gender Information Value Date Recorded Sex Assigned at Not on file Legal Sex Male 9:14 AM MST Gender Identity Not on file Sexual Orientation Not on file Last Filed Vital Signs Vital Sign Reading Time Taken Comments Blood Pressure 116/60 10/04/2014 12:01 AM CDT Pulse 72 04/19/2014 12:01 AM CDT Temperature 36 C (96.8 F) 10/04/2014 12:01 AM CDT Respiratory Rate - - Oxygen Saturation - - Inhaled Oxygen Concentration - - Weight 95.3 kg (210 lb) 10/04/2014 12:01 AM CDT Height 175.3 cm (5' 9 ) 10/04/2014 12:01 AM CDT Body Mass Index 31.01 10/04/2014 12:01 AM CDT Plan of Treatment Health Maintenance Due Date Last Done Comments Pneumococcal PPSV23/PCV13 65 + Years / Low and Medium Risk (1 of 4 - PCV) 09/26/1999 Influenza Vaccine (Season Ended) 2025 [place] [id number] [employer] Care Teams Woodworking Machine Operator Relationship Specialty Start Date End Date Kalyan Soto MD [address] [place] [address] PCP - General Family Medicine 01/01/22
--- OUTSIDE RECORDS SUMMARY | 2024-10-14 09:47 | XMS_ITS | Encounter Summary ---
Author Organization [facility] Address [address] [place] [address] Care Team Providers Care Director Of Adult Epilepsy Name Role Phone Kalyan Soto MD Primary Care Provider Reason for Visit * Reason Onset Date Comments Pneumonia 11/19/2022 Sent secure chat to 's group Encounter Details Date Type Department Care Team (Late st Contact Info) Description 11/19/2022 Telephone [facility] Admitting [id number] [place] [address] [place] [address] [place] [address] Pneumonia (Sent secure chat to 's group) Social History Tobacco Use Types Packs/Day Years Used Date Smoking Tobacco: Never Assessed Sex and Gender Information Value Date Recorded Sex Assigned at Not on file Legal Sex Male 2:41 PM CDT Gender Identity Not on file Sexual Orientation Not on file COVID-19 Exposure Response Date Recorded In the last 10 days, have yo u been in contact with someone who was confirmed or suspected to have Coronavirus/COVID-19? Unable to assess 11/16/2022 1:08 AM CDT documented as of this encounter Plan of Treatment Not on file documented as of this encounter Visit Diagnoses Not on filedocumented in this encounter Additional Health Concerns Infection Onset Date Last Indicated Resolved Time COVID-19 12/06/2022 12/06/2022 12/26/2022 1:16 AM CDT documented as of this encounter Care Teams Director Of Adult Epilepsy Relationship Specialty Start Date End Date Kalyan Soto MD [address] [place] [id number] PCP - General Family Practice 11/15/22 documented as of this encounter
--- OUTSIDE RECORDS SUMMARY | 2024-10-14 09:47 | XMS_ITS | Referral Summary ---
Author Organization [facility] [address] Address [address] [place] [address] Care Team Providers Care Section Hand Helper Name Role Phone Kalyan Soto MD Primary Care Provider [phone] Allergies No known active allergies Medications aspirin 81 mg chewable tablet Rey Chewable Low Dose Aspirin 81 mg tablet Chew 1 tablet every day by oral route. 8 Active gabapentin (NEURONTIN) 100 mg capsule 1 Active ALPRAZolam (XANAX) 0.5 mg tablet 1 Active apixaban (ELIQUIS) 5 mg tablet Take 1 tablet (5 mg total) by mouth 2 (two) times a day 3 Active empagliflozin (JARDIANCE) 10 mg tablet Take 1 tablet (10 mg total) by mouth daily 30 tablet 11 4 Active Additional Information Patient taking differently: 12.5 mgoral Daily,VA gives 25 mg and pt is taking half daily, Reported on 05/11/2024 atorvastatin (LIPITOR) 40 mg tablet Take 0.5 tablets (20 mg total) by mouth daily Active clopidogreL (PLAVIX) 75 mg tablet Take 1 tablet (75 mg total) by mouth daily Active FeroSuL 325 mg (65 mg iron) tablet Take 1 tablet (325 mg total) by mouth daily [address] (PROTONIX) 40 mg EC tablet Take 1 tablet (40 mg total) by mouth every 12 (twelve) hours 3 Active furosemide (LASIX) 40 mg tablet Take 1 tablet (40 mg total) by mouth daily 30 tablet 11 4 Active sacubitriL-vals samantha (ENTRESTO) 24-26 mg tabletIndicatio ns:chronic heart failure Take 1 tablet by mouth 2 (two) times a day 120 tablet 2 4 Active ascorbic acid (ascorbic acid with good hips) 500 mg tablet,chewable Acti ve cyanocobalamin (Vitamin B-12) 1,000 mcg sublingual tablet Take 1 tablet (1,000 mcg total) by mouth daily Active metoprolol XL (TOPROL-XL) 25 mg extended release tablet Take 1 tablet (25 mg total) by mouth daily 30 tablet 11 4 Active Simbrinza 1-0.2 % drops,suspensio n Administer 1 drop into the left eye 2 (two) times a day 4 Active albuterol HFA (PROVENTIL HFA,VENTOLIN HFA,PROAIR HFA) 90 mcg/actuation inhaler Inhale 2 puffs every 4 hours as needed 3 Active varenicline tartrate (CHANTIX) 1 mg tabletIndicatio ns:Smoking Cessation Take 1 tablet (1 mg total) by mouth 2 (two) times a day Take with full glass of water. 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 Posttraumatic stress disorder 04/15/2011 Anaclitic depression 04/15/2011 Anxiety 04/15/2011 Hyperlipidemia 04/15/2011 Abnormal vision as late effect of cerebrovascula r disease 04/15/2011 Sensory disturbance 04/15/2011 Cognitive deficits as late e ffect of cerebrovascular disease 04/15/2011 Hypertension 04/15/2011 Social History Tobacco Use Types Packs/Day Years Used Date Smoking Tobacco: Every Day Tobacco Cessation:Ready to Q uit: Not Asked; Counseling Given: Not Answered Sex and Gender Information Value Date Recorded Sex Assigned at Not on file Legal Sex Male 9:08 AM INTERNAL CONTROLS MANAGER Gender Identity Not on file Sexual Orientation Not on file Last Filed Vital Signs Vital Sign Reading Time Taken Comments Blood Pressure 80/42 05/11/2024 11:23 AM INTERNAL CONTROLS MANAGER Pulse 78 05/11/2024 11:23 AM INTERNAL CONTROLS MANAGER Temperature - - Respiratory Rate - - Oxygen Saturation 95% 05/11/2024 11:23 AM INTERNAL CONTROLS MANAGER Inhaled Oxygen Concentration - - Weight 101.2 kg (223 lb) 05/11/2024 11:23 AM INTERNAL CONTROLS MANAGER Height 175.3 cm (5' 9 ) 05/11/2024 11:23 AM INTERNAL CONTROLS MANAGER Body Mass Index 32.93 05/11/2024 11:23 AM INTERNAL CONTROLS MANAGER Plan of Treatment Not on file Insurance MEDICARE ADVANTAGE MEDICARE ADVANTAGE [facility] [place] [address] Care Teams Section Hand Helper Relationship Specialty Start Date End Date Kalyan Soto MD PCP - General Family Medicine 05/06/22
--- OUTSIDE RECORDS SUMMARY | 2024-10-14 09:47 | XMS_ITS | Clinical Summary ---
Author Organization [facility] Address [address] [place] [address] Phone Care Team Providers Care Leakage Tester Name Role Phone Kalyan Soto MD Primary Care Provider [phone] Allergies No known active allergies Medications gabapentin (NEURONTIN) 300 mg capsule Take 300 mg by mouth 4 times daily. 3 Active nitroglycerin (NITROSTAT) 0.4 mg Tablet, Sublingual Place 1 Tablet (0.4 mg) under tongue every 5 minutes as needed for Chest Pain (Not to exceed 3 doses, notify physician if chest pain not relieved, hold if systolic BP less than or equal to 90 mmHg). 3 Active albuterol sulfate HFA 90 mcg/actuation aerosol inhaler Take 2 Puffs by inhalation every 4 hours as needed for Shortness of Breath or Wheezing. 8.5 Gram 3 Active ALPRAZolam (XANAX) 0.5 mg tablet Take 0.5 mg by mouth 3 times daily as needed for Anxiety. Active atorvastatin 40 mg tablet Take 40 mg by mouth daily at bedtime. Active metoprolol succinate (Toprol XL) 25 mg Extended Release 24 hour tablet Take 1 Tablet (25 mg) by mouth daily. 3 Active sacubitriL-vals samantha (ENTRESTO) 24-26 mg Tablet Take 0.5 Tablets by mouth 2 times daily. 180 Tablet 3 3 Active empagliflozin (Jardiance) 10 mg tablet Take 1 Tablet (10 mg) by mouth daily in the morning. 30 Tablet 3 3 Active acetaminophen (TYLENOL) 325 mg tablet Take 650 mg by mouth every 6 hours as needed for Pain, Mild / Temperature. Active amiodarone (CORDARONE) 200 mg tablet Take 200 mg by mouth daily. Active aspirin (ECOTRIN EC) 81 mg Tablet, Delayed Release (E.C.) Take 81 mg by mouth daily. Active apixaban (ELIQUIS) 5 mg tablet Take 1 Tablet (5 mg) by mouth 2 times daily. 180 Tablet 3 3 Active FreeStyle Power 2 Fowler Misc USE DIRECTED 3 Active FreeStyle Power 2 Sensor Kit USE DIRECTED FOR DIABETES 3 Active Active Problems Patient Care Coordination No te Formatting of this note migh t be different from the original. Liner Machine Operator - Dr. Venkat Anand MD, [facility], [facility] - [address] [facility] Patricio Espinoza NP at [facility] Problem Noted Date Diagnosed Date Stented coronary artery 12/01/2022 Dysphagia 11/26/2022 Hypernatremia 11/24/2022 PAF (paroxysmal atrial fibrillation) 11/22/2022 Acute respiratory failure with hypoxia and hyper capnia 11/19/2022 Acute pulmonary edema 11/19/2022 Bilateral pleural effusion 11/19/2022 Cardiogenic shock 11/19/2022 Ischemic cardiomyopathy 11/19/2022 Cigarette nicotine dependence without complicati on 11/19/2022 Otitis media, acute 11/17/2022 Acute on chronic respiratory failure 11/15/2022 COPD (chronic obstructive pulmonary disease) NSTEMI (non-ST elevated myocardial infarction) 0 11/15/2022 Chest pain 11/15/2022 Overview (11/17/2022): Added automatically from request for surgery [id number] CAD (coronary artery disease) 11/15/2022 Overview (11/17/2022): Added automatically from request for surgery [id number] Encounters Date Type Department Care Team Description 08/31/2024 External Device Data [facility] ABSTRACTION Provider, Abstract 08/30/2024 External Device Data [facility] ABSTRACTION Provider, Abstract 08/17/2024 External Device Data [facility] ABSTRACTION Provider, Abstract 07/20/2024 External Device Data [facility] ABSTRACTION Provider, Abstract 07/20/2024 External Device Data [facility] ABSTRACTION Provider, Abstract from Last 3 Months Family History Medical History Relation Name Comments Cancer Father Hypertension Mother Parkinson's Disease Mother Relation Name Status Comments Father Mother Social History Tobacco Use Types Packs/Day Years Used Date Smoking Tobacco: Some Days Cigarettes 0.3 60.3 Started: 1965 Smokeless Tobacco: Never Tobacco Cessation:Ready to Q uit: Not Asked; Counseling Given: Not Answered Alcohol Use Standard Drinks/Week Comments Never 0 (1 standard drink = 0.6 oz pur e alcohol) Feeling Safe Answer Date Recorded Are you in a relationship wi th someone who hurts you emotionally and/or physically? No 11/29/2022 Food Insecurity Answer Date Recorded Social/Environmental Concerns No concerns Transportation Needs Answer Date Record ed Social/Environmental Concerns No concerns Housing Stability Answer Date Recorded Social/Environmental Concerns No concerns Utility Needs Answer Date Recorded Social/Environmental Concerns No concerns Sex and Gender Information Value Date Recorded Sex Assigned at Not on file Legal Sex Male 2:41 PM CDT Gender Identity Not on file Sexual Orientation Not on file Last Filed Vital Signs Vital Sign Reading Time Taken Comments Blood Pressure 105/54 11/05/2023 1:59 PM CDT Pulse 85 11/05/2023 1:59 PM CDT Temperature 36.1 C (97 F) 11/05/2023 1:59 PM CDT Respiratory Rate 14 11/05/2023 1:59 PM CDT Oxygen Saturation 92% 11/05/2023 1:59 PM CDT Inhaled Oxygen Concentration - - Weight 97.5 kg (215 lb) 11/05/2023 1:59 PM CDT Height 175.3 cm (5' 9 ) 07/23/2023 2:29 PM WOOL SUPPLIER Body Mass Index 31.75 07/23/2023 2:29 PM WOOL SUPPLIER Plan of Treatment Health Maintenance Due Date Last Done Comments DIABETES ANNUAL FOOT EXAM 09/26/1967 DIABETES ANNUAL RETINAL EXAM 09/26/1967 DIABETES MICROALBUMIN ANNUAL SCREEN 09/26/1967 DTAP/TDAP/TD VACCINES (1 - Tdap) 1968 PNEUMOCOCCAL VACCINE 50+ YEA RS (1 of 2 - PCV) 1968 COLORECTAL SCREENING 1994 Colorectal Cancer Screening 1994 FIT-DNA Q 3 years 1994 FIT/FOBT Q 1 year 1994 Flex Sig/CT Colonography Q 5 years 1994 ZOSTER VACCINE (1 of 2) 09/26/1999 Abdominal Aortic Aneurysm (AAA) Screening 2014 DIABETES HBA1C Q 6 MONTHS 06/09/2023 12/08/2022, 03/2023 LDL CHOLESTEROL ANNUAL 11/16/2023 11/15/2022 INFLUENZA VACCINE (#1) 2024 RSV VACCINE (60+ or ) (1 - 1-dose 75+ series) 2024 Medical Devices Implanted Type Area Load Planner Device Identifier Shelf Expiration Date Model / Serial / Lot Closure Perclose Prostyle Sut Mediate 19479-60 - [id number] Implanted:Qty : 1 on 11/18/2022 at [facility] Closure Device Right: Groin JANG- VASC DEVICE 05/28/2024 13335-02 / / [id number] Stent [place] [id number] Rx [id number] - [id number] Implanted:Qty : 1 on 11/18/2022 at [facility] Stent Coronary [employer] 08/09/2025 [id number] 22UX / / [id number] Stent Guillaume [place] 3.0x22mm Rx [id number] - [id number] Implanted:Qty : 1 on 11/18/2022 at [facility] Stent Coronary [employer] 07/15/2025 [id number] 22UX / / [id number] Stent Guillaume [place] [id number] Rx [id number] - [id number] Implanted:Qty : 1 on 11/18/2022 at [facility] Stent Left: Coronary [employer] 12/06/2023 [id number] 22UX / / [id number] Stent [place]ell [place] 4.0x15mm Rx [id number] - [id number] Implanted:Qty : 1 on 11/18/2022 at [facility] Stent Left: Coronary [employer] 09/03/2023 [id number] 15UX / / [id number] Stent Guillaume [place] 4.0x8mm Rx [id number] - [id number] Implanted:Qty : 1 on 11/18/2022 at [facility] Stent Left: Coronary [employer] 03/31/2025 [id number] 08UX / / [id number] Procedures Procedure Name Priority Date/Time Associated Diagnosis Comments HEMOGLOBIN A1C Routine 12/08/2022 3:42 PM CDT LIPID PANEL Routine 11/15/2022 10:18 PM CDT from Last 3 Months or Most Recently Relevant to Health Maintenance Results * HEMOGLOBIN A1C (12/08/2022 3:42 PM CDT) Blood us Abstract Provider CHEMISTRY ORDERABLES Final Res ult * (ABNORMAL) LIPID PANEL (11/15/2022 10:18 PM CDT) CHOLESTEROL 99 <200 mg/dL 11/15/2022 10:55 PM CDT [facility] TRIGLYCERIDE 139 <150 mg/dL 11/15/2022 10:55 PM CDT [facility] HDL 29(L) 40 - 59 mg/dL 11/15/2022 10:55 PM CDT [facility] LDL CALCULATED 42 <100 mg/dL 11/15/2022 10:[address] [facility] NON-HDL CHOLESTEROL 70 <130 mg/dL 11/15/2022 10:55 PM CDT [facility] Blood Venipuncture / Unknown 11/15/2022 10:18 PM CDT 11/15/2022 10:26 PM CDT Narrative [facility] - 11/15/2022 10:55 PM CDT TOTAL CHOLESTEROL mg/dL Desirable <200 Borderline high 200-239 High >=240 TRIGLYCERIDES mg/dL Normal <150 Borderline high 150-199 High 200-499 Very high >=500 HDL CHOLESTEROL mg/dL Low <40 Normal 40-59 Desirable >=60 NON HDL CHOLESTEROL mg/dL Optimal <130 Near Optimal 130-159 Borderline High 160-189 Very High >=190 CALCULATED LDL mg/dL LDL <70, OPTIMAL if have Atherosclerotic cardiovascular disease (ASCVD) or intermediate or higher (>7.5%) 10 year risk of ASCVD including most adults with diabetes. LDL <100, Optimal in adult patients with low (<7.5%) 10 year ASCVD risk LDL 100-160, Suboptimal LDL >160, High LDL >190, Very high ATPIII Guidelines Reference Ranges for Lipid Panels (NCEP/AMA) . us Matilde Garcia MD CHEMISTRY ORDERABLES Final Result [facility] CLIA# [id number] [place] [address] from Last 3 Months or Most Recently Relevant to Health Maintenance Insurance RX OPTUM RX Member Subscriber Plan / Payer (Ef fective 2022-Present) Name:Rolando Moser Relation to Subscriber:Self Name:Rolando Moser Payer ID:Not on file Group ID:[id number] Type:RX Medicare Part D Address: [address] Advance Directives For more information, please contact: [phone] * Full Code (Latest Code Status on File) Date Activated Date Inactivated Comments 11/16/2022 8:24 AM 12/07/2022 6:46 PM * Default Full Code - Needs Discussion Date Activated Date Inactivated Comments 11/15/2022 11:15 PM 11/16/2022 8:23 AM * Default Full Code - Needs Discussion Date Activated Date Inactivated Comments 11/15/2022 8:50 PM 11/15/2022 11:15 PM Care Teams Leakage Tester Relationship Specialty Start Date End Date Kalyan Soto MD [address] [place] [address] PCP - General Family Practice 11/15/22
--- OUTSIDE RECORDS SUMMARY | 2024-10-14 09:47 | XMS_ITS | Clinical Summary ---
Author Organization [facility] Address [facility] [place] [address] Care Team Providers Care Information Security Specialist Name Role Phone Unavailable Primary Care Provider Unavailabl e Social History Tobacco Use Types Packs/Day Years Used Date Smoking Tobacco: Never Assessed Sex and Gender Information Value Date Recorded Sex Assigned at Not on file Legal Sex Male 4:30 PM CDT Gender Identity Not on file Sexual Orientation Not on file Plan of Treatment Health Maintenance Due Date Last Done Comments Colorectal Cancer Screening Colonoscopy (10 Years) 1949 Hepatitis C 09/26/1967 DTaP, Tdap and Td Vaccines ( 1 - Tdap) 1968 Zoster Vaccines (1 of 2) 09/26/1999 Pneumococcal Vaccine: 50+ Ye ars (1 of 1 - PCV) 2014 COVID-19 Vaccine ( - 2023-2 5 season) 2024 RSV Immunization or 60+ Years (1 - 1-dose 75+ series) 2024 Meningococcal B Vaccine Aged Out No l onger eligible based on patient's age to complete this topic Meningococcal Vaccine Aged Out No asad amy eligible based on patient's age to complete this topic RSV Immunizations Under 20 Months Aged Out No longer eligible based on patient's age to complete this topic
--- OUTSIDE RECORDS SUMMARY | 2024-10-14 09:47 | XMS_ITS | Encounter Summary ---
Author Organization [facility] Address [address] [place] [address] Care Team Providers Care Receiving Worker Name Role Phone Kalyan Soto MD Primary Care Provider Reason for Visit * Reason Onset Date Comments bleeding 11/15/2022 Spoke Tommy/ [email or web address] @ Dr. Reyes's exchange Encounter Details Date Type Department Care Team (Late st Contact Info) Description 11/15/2022 Telephone Count Includes [facility] Admitting [address] [place] [address] [place] [address] [place] [address] bleeding (Spoke Tommy/ jacquie @ Dr. Reyes's exchange) Social History Tobacco Use Types Packs/Day Years [...] Infection Onset Date Last Indicated Resolved Time R/O Respiratory 11/15/2022 11/15/2022 11/16/2022 1 :28 AM CDT COVID-19 12/06/2022 12/06/2022 12/26/2022 1:16 AM CDT documented as of this encounter Care Teams Receiving Worker Relationship Specialty Start Date End Date Kalyan Soto MD [address] [place] [address] PCP - General Family Practice 11/15/22 documented as of this encounter
--- OUTSIDE RECORDS SUMMARY | 2024-10-14 09:47 | XMS_ITS | Clinical Summary ---
Author Organization [facility] [address] Address [address] [place] [address] Care Team Providers Care Temperature Inspector Name Role Phone Kalyan Soto MD Primary Care Provider [phone] Allergies No known active allergies Medications aspirin [...] ffect of cerebrovascular disease 04/15/2011 Hypertension 04/15/2011 Surgical History Surgery Date Site/Laterality Comments COLON SURGERY Colon Surgery - Resection secondary to diverticulitis (Added by [facility]) COLECTOMY Partial Colectomy - (Added by [facility]) Medical History Medical History Date Comments Cerebral infarction (HCC) Stroke syndrome - Stroke occurred in the OR during surgery for colon resection in 2009 per patient; R temporal and parietal infarcts, on MRI review (Added by [employer] Conv) Personal history of other (h ealed) physical injury and trauma History of head injury - Hi t in the head with concrete block (1976) (Added by [employer] Conv) Personal history of other di seases of the digestive system History of diverticulitis of colon - (Added by [employer] Conv) Personal history of other (h ealed) physical injury and trauma History of head injury - (A dded by [employer]) Personal history of other en docrine, nutritional and metabolic disease History of hyperchol esterolemia - (Added by [employer] Conv) Hypertension Hyperlipidemia Stroke (HCC) Family History Medical History Relation Name Comments Cancer Father Cancer - (Added by [employer] Conv) Hypertension Mother Hypertension - (Added by [employer]) Parkinsonism Mother Parkinson's Dis ease - (Added by [employer]) Stroke Paternal Grandfather Stroke Syndrome - (Added by [employer]) Relation Name Status Comments Father Mother Paternal Grandfather Social History Tobacco Use Types Packs/Day Years Used Date Smoking Tobacco: Every Day Tobacco Cessation:Ready to Q uit: Not Asked; Counseling Given: Not Answered Sex and Gender Information Value Date Recorded Sex Assigned at Not on file Legal Sex Male 9:08 AM VOICE NETWORK ENGINEER Gender Identity Not on file Sexual Orientation Not on file Obstetrics History Last Filed Vital Signs Vital Sign Reading Time Taken Comments Blood Pressure 80/42 05/11/2024 11:23 AM VOICE NETWORK ENGINEER Pulse 78 05/11/2024 11:23 AM VOICE NETWORK ENGINEER Temperature - - Respiratory Rate - - Oxygen Saturation 95% 05/11/2024 11:23 AM VOICE NETWORK ENGINEER Inhaled Oxygen Concentration - - Weight 101.2 kg (223 lb) 05/11/2024 11:23 AM VOICE NETWORK ENGINEER Height 175.3 cm (5' 9 ) 05/11/2024 11:23 AM VOICE NETWORK ENGINEER Body Mass Index 32.93 05/11/2024 11:23 AM VOICE NETWORK ENGINEER Plan of Treatment Health Maintenance Due Date Last Done Comments Colon Cancer Screening-Colonoscopy 1949 Depression Screening 1949 Hepatitis C Screening 1949 DTaP/Tdap/Td Vaccine (1 - Tdap) 1960 Hepatitis B Screening 09/26/1967 Pneumococcal vaccine 65+ (1 of 2 - PCV) 1968 Zoster Vaccine (1 of 2) 09/26/1999 Abdominal Aortic Aneurysm (A AA) Screen 2014 Well Visit 65+ 2014 Fall Risk Assessment 06/05/2022 06/05/2021 Covid-19 Vaccine ( season) 2024 05/16/2021, 10/25/2020, 2020 Influenza Vaccine (Season Ended) 2025 06/29/19 24 Insurance MEDICARE ADVANTAGE [employer] MEDICARE ADVANTAGE [employer] MEDICARE ADVANTAGE Care Teams Temperature Inspector Relationship Specialty Start Date End Date Kalyan Soto MD PCP - General Family Medicine 05/06/22
--- NOTE | 2024-10-14 15:08 | WPDSIXMINUTE ---
Six Minute Walk Procedure Procedure Performed Pulmonary Stress Test (6 min walk) Six Minute Walk Six Minute Walk: This is a 6 minute walk test. The test was performed and interpreted in accordance with the 2014 ERS/ATS task force guidelines. Of note, patient used to wheeled walker and stopped 3 times for 20 seconds for leg pain. Findings: The patient's resting room air oxygen saturation measured by pulse oximetry was 94%, the heart rate was 86 bpm, and the modified Ivonne dyspnea score was 1. Patient ambulated for 122 meters and oxygen saturation remained 91 to 92%. At the end of the study the heart rate was 112 bpm and the modified Ivonne dyspnea score was 2. The patient did not qualify for supplemental oxygen at rest or with ambulation. There are no prior studies for comparison.
--- NOTE | 2024-10-14 15:10 | WPDPFTINT ---
PFT Procedure Performed PFT Procedure Performed Plethysmography (Lung Vol) Diffusing Cap (DLCO) Flow Vol Loop Spirometry w/o Bronchodil PFT Interpretation This is a pulmonary function test with spirometry, plethysmography and diffusing capacity. The test was performed and results interpreted in accordance with the 2019 and 2005 ATS/ERS Task Force guidelines respectively using the Global Lung Function Initiative-2012 reference equations. Patient demonstrated good effort and cooperation. Reproducibility criteria were met. The quality of the pre bronchodilator spirometry maneuver was Grade A and post bronchodilator spirometry maneuver was Grade A. Of note, patient was very sleepy and unable to stay awake. Unable to keep strong seal on the mouthpiece. Patient has struggled with effort requirement of testing. Unable to obtain acceptable and reproducible measurements on post bronchodilator spirometry. Only obtained 1 DLCO trial. Findings: Spirometry: There is decreased maximal expiratory airflow at all lung volumes. The contour the inspiratory flow tracing is truncated. The FVC is 2.01 L, 51% predicted. The FEV1 is 1.09 L, 37% predicted. The FEV1: FVC ratio is 54%. Plethysmography: The total lung capacity 6.20 L, 91% predicted. The functional residual capacity is 4.21 L, 116% predicted. The residual volume is 3.84 L, 154% predicted. The residual volume: Total lung capacity ratio 62%. Diffusing capacity: The diffusing capacity unadjusted for hemoglobin and carboxyhemoglobin is 8.2, 33% predicted. The diffusing capacity adjusted for alveolar volume is 3.05, 79% predicted. Impression: There is a severe obstructive abnormality. The increase in residual volume to total lung volume ratio is consistent with hyperinflation from an obstructive abnormality. The diffusing capacity unadjusted for hemoglobin and carboxyhemoglobin is severely decreased and normalizes when adjusted for alveolar volume. There are no prior studies for comparison
== END 2024-10-14 09:44 | disposition home or self-care (01) ==
PROVIDERS: PCP Family Medicine; Visit Provider Nurse Practitioner Family
DX: J44.9 Chronic obstructive pulmonary disease, unspecified (principal)
CPT/HCPCS: 94375; 94618; 94726; 94729

== ENCOUNTER 2025-04-05 13:18 | Outpatient (CLI) | payer MEDICARE, SELFPAY ==
--- NOTE | ~2025-04-05 | US_ITS ---
Clinical History: I65.29 - Occlusion and stenosis of unspecified carotid ar... Examination: US carotid duplex BI Comparison: 09/17/2023 Technique: Grayscale, color, duplex/spectral Doppler sonography carotid and vertebral arteries. Distal CCA and Peak ICA systolic velocities provided. Society of Radiologists in Ultrasound (SRU) consensus criteria utilized, indirectly assessing stenosis by velocities. Findings: Bilateral ICA occlusion. Severe plaque common carotid arteries Right side: CCA - 70 cm/sec. ICA - 30 cm/sec. ICA/CCA - 0.4 Left Side: CCA - 30 cm/sec. ICA -occlusion Normal antegrade flow measured bilateral vertebral arteries. IMPRESSION: 1. Bilateral ICA occlusion. 2. Diffuse severe bilateral CCA plaque. 3. Normal bilateral antegrade vertebral artery flow. Stenosis measured by Society of Radiologists in Ultrasound (SRU) criteria. Reviewed, dictated and finalized at location R.
== END 2025-04-05 13:19 | disposition home or self-care (01) ==
PROVIDERS: PCP Family Medicine; Visit Provider Psychiatry & Neurology Neurology
DX: I65.29 Occlusion and stenosis of unspecified carotid artery (principal); R27.0 Ataxia, unspecified; G62.9 Polyneuropathy, unspecified; M54.42 Lumbago with sciatica, left side; M54.41 Lumbago with sciatica, right side; G89.29 Other chronic pain; I25.5 Ischemic cardiomyopathy; I50.43 Acute on chronic combined systolic (congestive) and diastolic (congestive) heart failure; I48.91 Unspecified atrial fibrillation; E11.9 Type 2 diabetes mellitus without complications; R29.6 Repeated falls; R60.0 Localized edema; Z86.79 Personal history of other diseases of the circulatory system; Z79.4 Long term (current) use of insulin
CPT/HCPCS: 93880